=== PATIENT | female | born 1965 | race Caucasian/White ===

== ENCOUNTER → 2020-09-02 16:37 | Outpatient (BNVA) | payer MEDICARE, MEDICAID, SELFPAY | PROVIDERS: PCP Internal Medicine; Referring Provider Internal Medicine; Visit Provider Student in an Organized Health Care Education/Training Program | DX: M79.7 Fibromyalgia (principal); R10.13 Epigastric pain | CPT/HCPCS: 99212 ==

== ENCOUNTER → 2020-09-29 08:08 | Outpatient (BNVA) | payer MEDICARE, MEDICAID, SELFPAY | PROVIDERS: PCP Internal Medicine; Visit Provider Physician Assistant | CPT/HCPCS: Q3014 ==

== ENCOUNTER 2020-10-12 12:02 | Outpatient (REF) | payer MEDICARE, MEDICAID, SELFPAY ==
[2020-10-12 12:55] LABS: MANUAL DIFF FLAG NO
[2020-10-12 13:17] LABS: Basophils Absolute Auto 0.1 X10*3/uL (0.0-0.2); Basophils Percent Auto 0.6 % (0-2); Eosinophils Absolute Auto 0.2 X10*3/uL (0.0-0.4); Eosinophils Percent Auto 1.8 % (0-4); Hemoglobin 13.6 g/dl (12.0-16.0); Imm Gran Abs Auto 0.14 X10*3/uL (0.00-0.03); Imm Gran Pct Auto 1.2 % (0.0-0.4); Lymphocytes Absolute Auto 2.1 X10*3/uL (1.2-4.9); Lymphocytes Percent Auto 18.5 % (20-40); Mean Corpuscular HGB Conc 31.6 g/dl (31.0-35.0); Mean Corpuscular Hemoglobin 29.4 pg (27.0-33.0); Mean Corpuscular Volume 92.9 fL (80-98); Mean Platelet Volume 9.6 fL (9.4-12.3); Monocytes Percent Auto 8.8 % (2-11); Neutrophils Absolute Auto 7.8 X10*3/uL (2.0-8.3); Neutrophils Percent Auto 69.1 % (45-73); Platelet Count 436 X10*3/uL (160-400); Red Blood Count 4.63 X10*6/uL (4.20-5.50); Red Cell Distribution Width 14.5 % (11.0-16.0); White Blood Count 11.3 X10*3/uL (4.8-10.8)
[2020-10-12 13:37] LABS: Thyroid Stimulating Hormone 0.65 uIU/mL (0.32-4.0)
== END 2020-10-12 12:03 | disposition home or self-care (01) ==
LOC: HO.LAB 12:02
PROVIDERS: Visit Provider Physician Assistant
DX: R74.01 Elevation of levels of liver transaminase levels (principal); K59.09 Other constipation
CPT/HCPCS: 36415; 84443; 85025

== ENCOUNTER 2020-10-25 08:16 | Day surgery (SDC) | payer MEDICARE, MEDICAID, SELFPAY ==
[2020-10-19 18:36] VITALS: BMI 32.7
--- NOTE | 2020-10-21 14:29 | HO.ANESPROP2 ---
Documented by User: Anny Doty 10/22/20 11:59 HPI - Anesthesia Eval Consult details Narrative: 55yo F for Upper Endoscopy PMFSH Active Problems Active Problems: All Active Problems (Updated 10/19/20 @ 18:33 by Vanessa Botello RN) Dyspepsia (Acute) Acid reflux (Acute) Dysphagia (Acute) Chronic constipation (Acute) Tubular adenoma of colon (Acute) Fibromyalgia (Acute) Past Medical History Medical History Anxiety Arthritis CAD (coronary artery disease) Fibromyalgia Rectocele Smoker Tubular adenoma of colon Family History Family History Father Diabetes Mother Breast cancer Rheumatoid arthritis Surgical History Surgical History History of cardiac catheterization Hx of section Hx of colonoscopy Social History Social History Household Members: Significant Other Alcohol intake: never Smoking Status: Current every day smoker Tobacco Type: Cigarette Packs Per Day: 1 Cigarettes Per Day: 20.0 Years Smoked: 25 Smoked in Last 30 Days: Yes Patient Interested in Nicotine Replacement: No Use of substances other than those prescribed or required for medical reasons: No Advance Directives: No Advance Directives Information Provided: No Advance Directives on File: No Recently lost weight without trying: No Current occupational status: unemployed Meds Allergies Allergy/AdvReac Type Severity Reaction Status Date / Time quan flavors Allergy Intermediate hives Uncoded 09/29/20 08:08 contrast dye Allergy Intermediate vomiting Uncoded 09/29/20 08:08 ,rash Home Medications Medication Instructions Recorded Confirmed Last Taken Type amitriptyline 25 mg tablet 25 mg PO BEDTIME 09/02/20 10/19/20 Unknown History hydroxyzine HCl 25 mg tablet 25 mg PO BEDTIME 09/02/20 10/19/20 Unknown History multivitamin 1 tab PO DAILY 09/02/20 10/19/20 Unknown History sertraline 100 mg tablet 100 mg PO DAILY 09/02/20 10/19/20 Unknown History solifenacin 5 mg tablet 5 mg PO DAILY 09/02/20 10/19/20 Unknown History Exam Exam Date and Time: October 21, 2020 142 Height,Weight and Vital Signs: Height 5 ft 2 in Weight 81.193 kg Assessment and Plan Assessment Anesthesia Assessment: Chart Reviewed Documented by User: Chery Boucher 10/25/20 09:46 PMFSH Past Medical History Medical History Anxiety Arthritis CAD (coronary artery disease) Fibromyalgia Rectocele Smoker Tubular adenoma of colon Family History Family History Father Diabetes Mother Breast cancer Rheumatoid arthritis Surgical History Surgical History History of cardiac catheterization Hx of section Hx of colonoscopy Social History Social History Household Members: Significant Other Alcohol intake: never Smoking Status: Current every day smoker Tobacco Type: Cigarette Packs Per Day: 1 Cigarettes Per Day: 20.0 Years Smoked: 25 Smoked in Last 30 Days: Yes Patient Interested in Nicotine Replacement: No Use of substances other than those prescribed or required for medical reasons: No Advance Directives: No Advance Directives Information Provided: No Advance Directives on File: No Recently lost weight without trying: No Current occupational status: unemployed Meds Allergies Allergy/AdvReac Type Severity Reaction Status Date / Time quan flavors Allergy Intermediate hives Uncoded 09/29/20 08:08 contrast dye Allergy Intermediate vomiting Uncoded 09/29/20 08:08 ,rash Home Medications Medication Instructions Recorded Confirmed Last Taken Type amitriptyline 25 mg tablet 25 mg PO BEDTIME 09/02/20 10/19/20 Unknown History hydroxyzine HCl 25 mg tablet 25 mg PO BEDTIME 09/02/20 10/19/20 Unknown History multivitamin 1 tab PO DAILY 09/02/20 10/19/20 Unknown History sertraline 100 mg tablet 100 mg PO DAILY 09/02/20 10/19/20 Unknown History solifenacin 5 mg tablet 5 mg PO DAILY 09/02/20 10/19/20 Unknown History Exam Airway Mallampati Class: II (No maxillary teeth) TM Dist: >3cm Neck ROM: Full Denture: Upper Loose/Missing/Broken Teeth: Yes and Upper Heart: RRR Lungs: CTA Assessment and Plan Assessment Anesthesia Assessment: Anesthesia Plan Discussed and Chart Reviewed Final Anesthetic Review NPO: Yes ASA Class: III Final Preanesthetic Review: Meds/Allgs Chart Reviewed, Consent Obtained/Reviewed and Anes Risks/Benef Reviewed Patient Risk: Intermediate Procedure Risk: Intermediate Anesthetic Plan Anesthetic Plan: MAC: Disposition: Standard PACU
--- NOTE | 2020-10-25 08:43 | MHC.SHP ---
Pre-Procedural Eval Section B Chief Complaint: Epigastric Pain Relevant Family History (Specify if Yes): No Relevant Social History: Tobacco Use Present Medications: see Short Stay Collaborative assessment Medical History: Significant History (Anxiety Arthritis CAD (coronary artery disease) Fibromyalgia Rectocele Smoker Tubular adenoma of colon) History of Previous Operations: Relevant previous surgery/procedure and date(s) (History of cardiac catheterization Hx of section Hx of colonoscopy) Allergies: Allergies Allergy/AdvReac Type Severity Reaction Status Date / Time quan flavors Allergy Intermediate hives Uncoded 09/29/20 08:08 contrast dye Allergy Intermediate vomiting Uncoded 09/29/20 08:08 ,rash Review of Systems Sugical H&P ROS: Negative: Constitution, Cardiovascular, Respiratory, Neurological, Psychiatric, Hem-Onc, Allergic/Immunologic, Gastrointestinal, Genitourinary, Musculoskeletal, Integumentary, Endocrine and Eyes/Ears/Nose/Throat Exam Surgical H&P Exam: Normal: HEENT, Normal: Heart, Normal: Lungs, Normal: Extremities, Normal: Abdomen, Normal: Skin and Normal: Neurological Plan Diagnosis/Plan: Unchanged I have reviewed the history and physical and performed a pertinent physical examination on my patient. No changes have occurred unless specified.
[2020-10-25 09:21] VITALS: BP 116/79; PULSE 69; RESP 16; TEMP 36.3; O2SAT 97
[2020-10-25] MEDS: Lactated Ringers 1,000 ML 100 ML IVCONT (09:26)
--- NOTE | 2020-10-25 10:25 | PM.OP ---
Brief Operative Note Date of Service: 10/25/20 Pre-op diagnosis: GERD Post-op diagnosis: same Procedure: see op note Surgeon: Disha Goldberg MD Anesthesia: MAC Estimated blood loss (mL): 0 Condition: stable Disposition: PACU
--- NOTE | 2020-10-25 10:25 | W.PM.OPN ---
Operative Note Operative Note Date of Service: 10/25/20 Narrative: Procedure Description: EGD FLEXIBLE TRANSORAL UPPER GASTROINTESTINAL ENDOSCOPY UPPER ENDOSCOPY Consent: Indications for the procedure and potential complications of bleeding, perforation, reaction to medications and missed diagnosis were discussed with the patient and informed consent was obtained. Instrument: Olympus GIF H 190 J mid size upper endoscope Monitoring: Vital signs and clinical assessment, continuous EKG monitoring, Pulse oximetry, Carbon Dioxide monitoring and blood pressure monitoring were done throughout the procedure. Procedure: The patient was placed in the left lateral decubitis position and pre-procedure medications were administered and a bite block was placed. The endoscope was inserted into the mouth and advanced under direct vision to the third part of duodenum. A careful inspection was made as the upper endoscope was withdrawn including a retroflexed examination of the proximal stomach; Findings and interventions are described below. Findings: Larynx:normal Esophagus: GE junction at 37 cm, diaphragm hiatus at 33 cm, consistent with 4 cm sliding hiatal hernia, irregular Z line, possible barretts with esophagitis, bx taken from GEJ Stomach: Patchy gastric erythema. Biopsies were obtained. Grade 2 flap valve on retroflexed examination of the cardia. Duodenum: Normal bulb and descending duodenum, Intervention: Biopsies as noted above Impression/Findings: hiatal hernia gastritis esophagitis PLAN: cont with PPI, can increase dose if needed consider surgical referral for repair of hernia reflux precautions
[2020-10-25 10:30] VITALS: BP 115/68; PULSE 81; RESP 16; TEMP 36.2; O2SAT 92
[2020-10-25 10:45] VITALS: BP 120/73; PULSE 70; RESP 18; TEMP 36.1; O2SAT 93
== END 2020-10-25 11:24 | disposition home or self-care (01) ==
PROVIDERS: Visit Provider Internal Medicine Gastroenterology
PROC: 0DJ08ZZ Inspection of Upper Intestinal Tract, Via Natural or Artificial Opening Endoscopic (ICD-10-PCS; CPT 43235; principal; 2020-10-25 09:10)
DX: R10.13 Epigastric pain (principal); K21.00 Gastro-esophageal reflux disease with esophagitis, without bleeding; K29.70 Gastritis, unspecified, without bleeding; K44.9 Diaphragmatic hernia without obstruction or gangrene; K59.09 Other constipation; F17.210 Nicotine dependence, cigarettes, uncomplicated; Z86.010 Personal history of colon polyps
CPT/HCPCS: 43239; 88305; 88342; J2250; J3010

== ENCOUNTER → 2020-11-09 11:12 | Outpatient (BNVA) | payer MEDICARE, MEDICAID, SELFPAY | PROVIDERS: Visit Provider Physician Assistant | DX: Z13.89 Encounter for screening for other disorder (principal) | CPT/HCPCS: Q3014 ==

== ENCOUNTER 2021-09-02 14:19 | Outpatient (REF) | payer OTHER, MEDICAID, SELFPAY ==
--- NOTE | ~2021-09-02 | XR_ITS ---
EXAMINATION: XR CERVICAL SPINE CLINICAL INFORMATION: M54.2 - Cervicalgia COMPARISON: Radiographs cervical spine 08/03/2016 TECHNIQUE: Cervical spine is imaged in 5 views: AP, odontoid, lateral, swimmer's, and Fuchs. FINDINGS: There is mild reversal cervical lordosis with mild levocurvature cervical spine similar to prior exam 2017. There is no interval vertebral compression, focal disc narrowing, destructive process, or prevertebral soft tissue swelling. The odontoid appears none. Again, there is trace spondylolisthesis at C4-C5 with some mild spurring facet. There is no perched facet or widening posterior elements. XR/XR cervical spine 3V IMPRESSION: 1. Mild levocurvature and reversal cervical lordosis similar to 2017. 2. Trace spondylolisthesis C4-C5 similar to prior exam. 3. No interval vertebral compression, focal disc narrowing, destructive process.
== END 2021-09-02 14:20 | disposition home or self-care (01) ==
LOC: HO.XRAY 14:19
PROVIDERS: PCP Internal Medicine; Visit Provider Nurse Practitioner Family
DX: M79.7 Fibromyalgia (principal); M54.2 Cervicalgia; R10.13 Epigastric pain
CPT/HCPCS: 72040; 99212

== ENCOUNTER → 2021-10-10 08:25 | Outpatient (BNVA) | payer MEDICARE, MEDICAID, SELFPAY | PROVIDERS: PCP Internal Medicine; Referring Provider Internal Medicine; Visit Provider Physician Assistant | DX: K21.9 Gastro-esophageal reflux disease without esophagitis (principal); K44.9 Diaphragmatic hernia without obstruction or gangrene; Z87.19 Personal history of other diseases of the digestive system | CPT/HCPCS: Q3014 ==

== ENCOUNTER 2021-12-06 13:37 | Outpatient (REF) | payer MEDICARE, MEDICAID, SELFPAY ==
--- NOTE | ~2021-12-06 | XR_ITS ---
EXAMINATION: XR LUMBOSACRAL SPINE WITH OBLIQUES CLINICAL INFORMATION: Muscle spasm. COMPARISON: Lumbar spine radiographs dated 08/03/2016. TECHNIQUE: AP, lateral, coned down, flexion, and extension views of the lumbar spine. FINDINGS: Normal vertebral body alignment. The lumbar lordosis is maintained. No significant subluxation with flexion or extension. No loss of vertebral body height. Minimal multilevel loss of intervertebral disc height with endplate osseous, most prominent at L1-L2. No lytic or blastic osseous lesion. No abnormal soft tissue calcification. XR/XR lumbar spine 6V w bending IMPRESSION: No acute fracture or subluxation. No change in anatomic alignment with flexion or extension. Mild multilevel degenerative disc disease, most prominent at L1-L2, slightly progressed when compared to the prior radiographs.
== END 2021-12-06 13:38 | disposition home or self-care (01) ==
LOC: HO.XRAY 13:37
PROVIDERS: Visit Provider Nurse Practitioner Family
DX: M62.838 Other muscle spasm (principal); M43.06 Spondylolysis, lumbar region; M47.812 Spondylosis without myelopathy or radiculopathy, cervical region; M54.2 Cervicalgia; M79.7 Fibromyalgia
CPT/HCPCS: 72114; 99202

== ENCOUNTER 2021-12-15 10:22 | Day surgery (SDC) | payer MEDICARE, MEDICAID, SELFPAY ==
[2021-12-09 15:05] VITALS: BMI 35.1
--- NOTE | 2021-12-14 09:32 | HO.ANESPROP2 ---
Documented by User: Anny Doty NP 12/14/21 09:34 HPI - Anesthesia Eval Consult details Narrative: 56yo F for Upper Endoscopy s/p Upper Endoscopy 10/2020 with MAC [facility] Active Problems Active Problems: All Active Problems (Updated 12/06/21 @ 14:50 by CHANTEL Kathleen) Cervicalgia (Acute) Cervical spondylosis (Acute) Lumbar spondylolysis (Acute) Muscle spasm (Acute) History of Manley's esophagus (Acute) Acid reflux (Acute) Manley's esophagus (Acute) Hiatal hernia (Acute) Dyspepsia (Acute) Acid reflux (Acute) Dysphagia (Acute) Chronic constipation (Acute) Tubular adenoma of colon (Acute) Fibromyalgia (Acute) Past Medical History Medical History Anxiety Arthritis CAD (coronary artery disease) Fibromyalgia Rectocele Smoker Tubular adenoma of colon Family History Family History Father Diabetes Mother Breast cancer Rheumatoid arthritis Surgical History Surgical History History of cardiac catheterization Hx of section Hx of colonoscopy Social History Social History Household Members: Significant Other Alcohol intake: never Patient Tobacco Use Status: Former Tobacco user Quit Date: 10/02/21 Cigarette Packs Per Day: 1 Cigarettes Per Day: 20.0 Years Smoked: 25 / Quit 3 months ago Current occupational status: unemployed Meds Allergies Allergy/AdvReac Type Severity Reaction Status Date / Time quan flavors Allergy Intermediate hives Uncoded 12/15/21 10:34 contrast dye Allergy Intermediate vomiting Uncoded 12/15/21 10:34 ,rash Home Medications Medication Instructions Recorded Confirmed Last Taken Type amitriptyline 25 mg tablet 25 mg PO BEDTIME 09/02/20 10/10/21 Unknown History hydroxyzine HCl 25 mg tablet 25 mg PO BEDTIME 09/02/20 10/10/21 Unknown History multivitamin 1 tab PO DAILY 09/02/20 10/10/21 Unknown History sertraline 100 mg tablet 100 mg PO DAILY 09/02/20 10/10/21 Unknown History oxybutynin chloride 10 mg 10 mg PO DAILY 09/02/21 10/10/21 Unknown History tablet,extended release 24 hr omeprazole 20 mg capsule,delayed 20 mg PO DAILY 10/10/21 10/10/21 12/15/21 09:00 History release ibuprofen 800 mg tablet 800 mg PO Q8H PRN 12/06/21 Unknown History rosuvastatin 10 mg tablet 10 mg PO BEDTIME 12/06/21 Unknown History Exam Exam Date and Time: December 14, 2021 0932 Height,Weight and Vital Signs: Height 5 ft 1 in Weight 84.368 kg Assessment and Plan Assessment Anesthesia Assessment: Chart Reviewed Documented by User: Basilio Marquez MD 12/15/21 16:23 [facility] Past Medical History Medical History Anxiety Arthritis CAD (coronary artery disease) Fibromyalgia Rectocele Smoker Tubular adenoma of colon Family History Family History Father Diabetes Mother Breast cancer Rheumatoid arthritis Family history of problems with anesthesia: No Surgical History Surgical History History of cardiac catheterization Hx of section Hx of colonoscopy History of Problems with Anesthesia: No Social History Social History Household Members: Significant Other Alcohol intake: never Patient Tobacco Use Status: Former Tobacco user Quit Date: 10/02/21 Cigarette Packs Per Day: 1 Cigarettes Per Day: 20.0 Years Smoked: 25 / Quit 3 months ago Current occupational status: unemployed Meds Allergies Allergy/AdvReac Type Severity Reaction Status Date / Time quan flavors Allergy Intermediate hives Uncoded 12/15/21 10:34 contrast dye Allergy Intermediate vomiting Uncoded 12/15/21 10:34 ,rash Home Medications Medication Instructions Recorded Confirmed Last Taken Type amitriptyline 25 mg tablet 25 mg PO BEDTIME 09/02/20 10/10/21 Unknown History hydroxyzine HCl 25 mg tablet 25 mg PO BEDTIME 09/02/20 10/10/21 Unknown History multivitamin 1 tab PO DAILY 09/02/20 10/10/21 Unknown History sertraline 100 mg tablet 100 mg PO DAILY 09/02/20 10/10/21 Unknown History oxybutynin chloride 10 mg 10 mg PO DAILY 09/02/21 10/10/21 Unknown History tablet,extended release 24 hr omeprazole 20 mg capsule,delayed 20 mg PO DAILY 10/10/21 10/10/21 12/15/21 09:00 History release ibuprofen 800 mg tablet 800 mg PO Q8H PRN 12/06/21 Unknown History rosuvastatin 10 mg tablet 10 mg PO BEDTIME 12/06/21 Unknown History Exam Airway Mallampati Class: III TM Dist: >3cm Neck ROM: Full Denture: Upper Loose/Missing/Broken Teeth: Yes (Chipped filling ) Heart: S1,S2 Lungs: b/l breath sounds Assessment and Plan Assessment Anesthesia Assessment: Anesthesia Plan Discussed Final Anesthetic Review Family History of Problems with Anesthesia: No History of Problems with Anesthesia: No NPO: Yes ASA Class: III Final Preanesthetic Review: Meds/Allgs Chart Reviewed, Consent Obtained/Reviewed and Anes Risks/Benef Reviewed Patient Risk: Intermediate Procedure Risk: Intermediate Anesthetic Plan Anesthetic Plan: MAC: Disposition: Standard PACU
--- NOTE | 2021-12-15 10:40 | MHC.SHP ---
Pre-Procedural Eval Section A Date of Service: 12/15/21 Section B Chief Complaint: reflux disease, dysphagia Details of Present Illness: hx of barretts esophagus Relevant Family History (Specify if Yes): Yes Relevant Social History: None (ex smoker) Present Medications: see Short Stay Collaborative assessment Medical History: Significant History (Anxiety Arthritis CAD (coronary artery disease) Fibromyalgia Rectocele Smoker Tubular adenoma of colon) History of Previous Operations: Relevant previous surgery/procedure and date(s) (History of cardiac catheterization Hx of section Hx of colonoscopy) Allergies: Allergies Allergy/AdvReac Type Severity Reaction Status Date / Time quan flavors Allergy Intermediate hives Uncoded 12/15/21 10:34 contrast dye Allergy Intermediate vomiting Uncoded 12/15/21 10:34 ,rash Review of Systems Sugical H&P ROS: Negative: Constitution, Cardiovascular, Respiratory, Neurological, Psychiatric, Hem-Onc, Allergic/Immunologic, Gastrointestinal, Genitourinary, Musculoskeletal, Integumentary, Endocrine and Eyes/Ears/Nose/Throat Exam Surgical H&P Exam: Normal: HEENT, Normal: Heart, Normal: Lungs, Normal: Extremities, Normal: Abdomen, Normal: Skin and Normal: Neurological Plan Diagnosis/Plan: Unchanged I have reviewed the history and physical and performed a pertinent physical examination on my patient. No changes have occurred unless specified.
[2021-12-15 10:58] VITALS: BP 118/70; PULSE 65; RESP 18; TEMP 36.1; O2SAT 96; BMI 36.6
[2021-12-15] MEDS: Lactated Ringers 1,000 ML 100 ML IVCONT (11:06)
--- NOTE | 2021-12-15 11:22 | PM.OP ---
Brief Operative Note Date of Service: 12/15/21 Pre-op diagnosis: GERD, dysphagia and hx of barretts esophagus Post-op diagnosis: same Procedure: see op note Surgeon: Disha Goldberg MD Anesthesia: MAC Was an [employer] Control [employer] Operator used for this Procedure?: No Estimated blood loss (mL): 0 Condition: stable Disposition: PACU
--- NOTE | 2021-12-15 11:22 | W.PM.OPN ---
Operative Note Operative Note Date of Service: 12/15/21 Narrative: Procedure Description: EGD Indication: Hx of GERD, dysphagia, barretts esophagus Anesthesia: MAC FLEXIBLE TRANSORAL UPPER GASTROINTESTINAL ENDOSCOPY UPPER ENDOSCOPY Consent: Indications for the procedure and potential complications of bleeding, perforation, reaction to medications and missed diagnosis were discussed with the patient and informed consent was obtained. Instrument: Olympus GIF H 190 J mid size upper endoscope Monitoring: Vital signs and clinical assessment, continuous EKG monitoring, Pulse oximetry, Carbon Dioxide monitoring and blood pressure monitoring were done throughout the procedure. Procedure: The patient was placed in the left lateral decubitis position and pre-procedure medications were administered and a bite block was placed. The endoscope was inserted into the mouth and advanced under direct vision to the third part of duodenum. A careful inspection was made as the upper endoscope was withdrawn including a retroflexed examination of the proximal stomach; Findings and interventions are described below. Findings: Larynx:normal Esophagus: GE junction at 37? cm, diaphragm hiatus at 33 cm, consistent with 4 cm sliding hiatal hernia, irregular Z line, with short segment barretts tongues noted, as well as distal linear erosive streaks (LA grade C erosive esophagitis) bx taken from GEJ as well as WATS 3D brushings. There was a non obstructive schatzki ring noted. Balloon dilation done to 20 mm at GEJ, minimal resistance felt, UEs dilated and resistance felt at 19 mm. No tears seen. Stomach: Patchy gastric erythema with scarring noted . Biopsies were obtained. Grade 2 flap valve on retroflexed examination of the cardia. Reduced gastric movement noted. Duodenum: Normal bulb and descending duodenum, Intervention: Biopsies as noted above, Ballon dilation, WATS 3d brushings Impression/Findings: sliding hiatal hernia schatzki ring erosive esophagitis gastritis possible gastroparesis barretts esophagus PLAN: confirm taking PPI weight loss consider referral for hernia repair gastric emptying study if she agrees reflux precautions possible repeat EGD 3-5 yrs depending on path and WATS
[2021-12-15 12:11] VITALS: BP 105/60; PULSE 92; RESP 16; TEMP 36.1; O2SAT 98
[2021-12-15 12:26] VITALS: BP 141/74; PULSE 99; RESP 18; TEMP 36.1; O2SAT 98
== END 2021-12-15 12:46 ==
PROVIDERS: PCP Internal Medicine; Visit Provider Internal Medicine Gastroenterology
PROC: 0DJ08ZZ Inspection of Upper Intestinal Tract, Via Natural or Artificial Opening Endoscopic (ICD-10-PCS; CPT 43235; principal; 2021-12-15 11:50)
DX: K21.00 Gastro-esophageal reflux disease with esophagitis, without bleeding (principal); K29.50 Unspecified chronic gastritis without bleeding; K22.2 Esophageal obstruction; K22.70 Barrett's esophagus without dysplasia; K44.9 Diaphragmatic hernia without obstruction or gangrene
CPT/HCPCS: 43249; 43239; 88305; 88342; C1726; J2250

== ENCOUNTER → 2021-12-29 09:23 | Outpatient (BNVA) | payer MEDICARE, MEDICAID, SELFPAY | PROVIDERS: PCP Internal Medicine; Visit Provider Physician Assistant | DX: K22.70 Barrett's esophagus without dysplasia (principal); K21.9 Gastro-esophageal reflux disease without esophagitis; K44.9 Diaphragmatic hernia without obstruction or gangrene; K22.2 Esophageal obstruction; M54.2 Cervicalgia; M47.812 Spondylosis without myelopathy or radiculopathy, cervical region; M43.06 Spondylolysis, lumbar region; M62.838 Other muscle spasm; M79.7 Fibromyalgia; N62 Hypertrophy of breast; M25.511 Pain in right shoulder; M25.512 Pain in left shoulder; G89.29 Other chronic pain | CPT/HCPCS: 99212 ==

== ENCOUNTER 2022-01-25 09:19 | Emergency (ER) | payer OTHER, SELFPAY ==
[2022-01-25 09:25] VITALS: BP 122/58; PULSE 68; RESP 16; TEMP 36.4; O2SAT 97; BMI 32.1
[2022-01-25 09:38] LABS: Appearance Urine CLEAR; Color Urine YELLOW; Glucose Urine UA NEG (NEG); Leukocyte Esterase Urine NEG (NEG); Nitrite Urine NEG (NEG); Urine Blood NEG (NEG); Urine Ketones NEG (NEG); Urine Protein NEG (NEG-TRACE)
--- NOTE | 2022-01-25 10:01 | ED.FEMALEGU ---
HPI - Female Genitourinary General Chief complaint: Urogenital-Female Stated complaint: pt states derick was on meds but still has symtoms Time Seen by Provider: 01/25/22 09:54 Source: patient Mode of arrival: ambulatory Limitations: no limitations History of Present Illness HPI Narrative: Patient is a 56 year old female presenting to the emergency department today with continued urinary tract infection symptoms. Patient states that she is still currently having burning with urination. Patient states that starting late December, she was diagnosed with a urinary tract infection at an urgent care. Patient states that a few days after she was prescribed Macrobid, her urine culture grew out E. Coli. At that time, they switched her medication to Augmentin. Patient states that today she is on her last dose of Augmentin and her symptoms have remained the same. Patient states she saw her OBGYN and she gave her just 1 dose of an anti-fungal. Patient denies any dizziness, lightheadedness, abdominal pain, nausea, vomiting, fever, chills, blurry vision, double vision, loss of vision, chest pain, difficulty breathing, shortness of breath, back pain, night sweats, increased urinary frequency, increased urinary urgency, blood in her urine or stool, syncope or a near syncopal episode, recent trauma or falls, bowel incontinence, bladder incontinence, bowel retention, bladder retention, or any other complaints at this time. MD elicited complaint: dysuria and UTI Onset (ago): week(s) Severity: mild Female Urogenital Radiation: Non-Radiating Severity scale (1-10): 3 Vaginal discharge: none Vaginal bleeding: none Urinary symptoms: Dysuria Exacerbating factors: none Relieving factors: none Associated symptoms: denies other symptoms Treatment prior to arrival: none Sexual activity: No Related Data Home Medications Medication Instructions Recorded Confirmed amitriptyline 25 mg tablet 25 mg PO BEDTIME 09/02/20 12/29/21 hydroxyzine HCl 25 mg tablet 25 mg PO BEDTIME 09/02/20 12/29/21 multivitamin 1 tab PO DAILY 09/02/20 12/29/21 sertraline 100 mg tablet 100 mg PO DAILY 09/02/20 12/29/21 oxybutynin chloride 10 mg 10 mg PO DAILY 09/02/21 12/29/21 tablet,extended release 24 hr omeprazole 20 mg capsule,delayed 20 mg PO DAILY 10/10/21 12/29/21 release ibuprofen 800 mg tablet 800 mg PO Q8H PRN pain 12/06/21 12/29/21 rosuvastatin 10 mg tablet 10 mg PO BEDTIME 12/06/21 12/29/21 norethindrone (contraceptive) 0.35 0.35 mg PO 12/29/21 12/29/21 mg tablet Previous Rx's Medication Instructions Recorded omeprazole 20 mg capsule,delayed 40 mg PO DAILY 30 days #60 caps 12/29/21 release tizanidine 4 mg tablet 4 mg PO Q8H PRN muscle spasticity 12/29/21 30 days #90 tabs pregabalin 225 mg capsule (Lyrica) 225 mg PO BID #60 caps 01/18/22 cephalexin 500 mg capsule 500 mg PO Q6H 7 days #28 caps 01/25/22 fluconazole 150 mg tablet 150 mg PO ONCE 2 doses #2 tabs 01/25/22 (Diflucan) metronidazole 500 mg tablet 500 mg PO BID 7 days #14 tabs 01/25/22 Allergies Allergy/AdvReac Type Severity Reaction Status Date / Time quan flavors Allergy Intermediate hives Uncoded 12/15/21 10:34 contrast dye Allergy Intermediate vomiting Uncoded 12/15/21 10:34 ,rash Review of Systems Constitutional: Constitutional: Reports no additional constitutional complaints, Denies chills, Denies fever(s) and Denies night sweats Eyes: Eyes: Reports no additional eye complaints, Denies blurry vision, Denies change in vision, Denies diplopia, Denies eye discharge, Denies loss of vision and Denies eye pain ENT: Denies dizziness Cardiovascular: Cardiovascular: Reports no additional cardiovascular complaints, Denies chest pain, Denies lightheadedness, Denies Loss of Consciousness and Denies dyspnea Respiratory: Respiratory: Reports no additional respiratory complaints and Denies dyspnea Gastrointestinal: Gastrointestinal: Reports no additional gastrointestinal complaints, Denies abdominal pain, Denies melena, Denies hematochezia, Denies change in bowel habits and Denies change in stool character Genitourinary: Genitourinary: Denies hematuria, Denies urinary frequency, Reports dysuria, Denies urinary incontinence, Denies urinary hesitancy and Denies urinary urgency Musculoskeletal: Musculoskeletal: Reports no additional musculoskeletal complaints, Denies numbness and Denies tingling Neurologic: Denies dizziness, Denies loss of vision, Denies numbness and Denies tingling Psychiatric: Psychiatric: Reports no additional psychiatric complaints Endocrine: Endocrine: Reports no additional endocrine complaints Hematologic/Lymphatic: Hematologic/Lymphatic: Reports no additional hematologic/lymphatic complaints Allergic/Immunologic: Allergic/Immunologic: Reports no additional allergic/immunologic complaints REPLACED BY [facility] Past Medical History Attestation statement: The following information was validated with the patient. Source: old records reviewed Medical History Anxiety Arthritis CAD (coronary artery disease) Fibromyalgia Rectocele Smoker Tubular adenoma of colon Surgical History History of cardiac catheterization Hx of section Hx of colonoscopy Family History Family History Father Diabetes Mother Breast cancer Rheumatoid arthritis Social History Social History Household Members: Significant Other Alcohol intake: never Patient Tobacco Use Status: Former Tobacco user Quit Date: 10/02/21 Cigarette Packs Per Day: 1 Cigarettes Per Day: 20.0 Years Smoked: 25 / Quit 3 months ago Advance Directives: No Advance Directives Information Provided: Yes Current occupational status: unemployed Physical Exam Vital Signs: Vital Signs: Last Vital Signs Temp 97.6 F 01/25/22 09:25 Pulse 68 01/25/22 09:25 Resp 16 01/25/22 09:25 BP 122/58 L 01/25/22 09:25 Pulse Ox 97 01/25/22 09:25 O2 Del Method 01/25/22 09:25 BMI result Body Mass Index 32.1 Const: General: cooperative, no acute distress, alert and awake Nutritional Appearance: well nourished Orientation/consciousness: patient oriented x3 Limitations: no limitations HEENT: Head: Yes normal to inspection and Yes atraumatic Ears: hearing grossly normal bilaterally and external ears normal General nose exam: Normal external nose present, no nasal discharge noted and no epistaxis Face and sinus: Yes normal facial exam, No abrasion and No laceration Mouth: Normal oral and palatal mucosa present, no drooling and no muffled voice Eyes: General: appearance normal, both eyes and all related structures Periorbital: periorbital findings normal Eyelids: Yes eyelids normal Conjunctivae: conjunctivae normal Pupils: Equal, round and reactive pupils present EOM: EOMs intact bilaterally Neck: Neck: Yes normal visual inspection, Yes full ROM and Yes no lymphadenopathy Chest: Chest palpation & inspection: normal inspection of the chest Resp: Effort & Inspection: normal respiratory effort and able to speak in complete sentences Auscultation: clear to auscultation bilaterally Cardio: Rate: regular rate Rhythm: regular rhythm GI: Inspection: Yes normal to inspection Neuro: General: patient oriented x3 and moves all extremities Cranial nerves: Yes Equal, round and reactive pupils present Cognition (Neuro): normal cognition Motor exam (neuro): 5/5 motor strength present throughout Sensory Exam: Normal double simultaneous stimulation for sensation Coordination: [id number]-[id number] test normal Extrem: General: Yes normal to inspection, Yes full ROM and Yes capillary refill normal Psych: Appearance: grossly normal Mental Status: mental status grossly normal Affect: normal affect Attitude: cooperative Thought process: Normal thought process present Thought content: Normal thought content present Insight: Good insight present (Psych) MDM - Female Genitourinary MDM Narrative Medical decision making narrative: Patient is a 56 year old female presenting to the emergency department today with urinary tract infection symptoms. Patient's physical exam was unremarkable. Patient's urine showed minimal WBCs, trace yeast, and trace bacteria. I explained my physical exam findings as well as all test results to the patient. I answered all questions asked by the patient. I stressed the importance of the patient taking her medication as prescribed. I stressed the importance of the patient following up with her primary care provider and a urologist. I stressed the importance of the patient returning to the emergency department immediately if her symptoms were to worsen or if she were to develop any dizziness, shortness of breath, difficulty breathing, chest pain, blurry vision, loss of vision, nausea, vomiting, abdominal pain, fever, chills, back pain, or any other complaints. Patient verbalized agreement and understanding with this treatment plan and discharge. Differential Diagnosis Differential diagnosis: Likely urinary tract infection Medical Records Attestation: I reviewed the patient's medical records. Lab Data Attestation: I reviewed the patient's lab results. Labs: Lab Results 01/25/22 Range/Units 09:31 Urine Color YELLOW Urine Appearance CLEAR Urine pH 6.0 (5.0-8.0) Ur Specific [place] 1.020 (1.005-1.025) Urine Protein NEG (NEG-TRACE) MG/DL Urine Glucose (UA) NEG (NEG) MG/DL Urine Ketones NEG (NEG) MG/DL Urine Blood NEG (NEG) Urine Nitrite NEG (NEG) Ur Leukocyte Esterase NEG (NEG) Urine RBC 0-2 (0) /HPF Urine WBC 1-4 (0-4) /HPF Ur Squamous Epith Cells 1+ /LPF Urine Bacteria TRACE /LPF Urine Yeast TRACE /HPF Discharge Plan Discharge Clinical Impression: UTI (urinary tract infection), Yeast infection Patient Disposition: Home, Self-Care Instructions: Urinary Tract Infection in Women (ED), Yeast Infection (ED) Additional Instructions: Take an OTC oral probiotic as we discussed. Follow up with your primary care provider, your OBGYN, and a urologist. Return to the emergency department immediately if your symptoms worsen or if you develop any dizziness, shortness of breath, difficulty breathing, chest pain, blurry vision, loss of vision, nausea, vomiting, abdominal pain, fever, chills, back pain, or any other complaints. Prescriptions: New cephalexin 500 mg capsule 500 mg PO Q6H 7 Days Qty: 28 0RF fluconazole [Diflucan] 150 mg tablet 150 mg PO ONCE Qty: 2 0RF Rx Instructions: Take the first dose TODAY, take the 2nd dose at the END of your antibiotic course. metronidazole 500 mg tablet 500 mg PO BID 7 Days Qty: 14 0RF No Action pregabalin [Lyrica] 225 mg capsule 225 mg PO BID Qty: 60 4RF oxybutynin chloride 10 mg tablet extended release 24hr 10 mg PO DAILY sertraline 100 mg tablet 100 mg PO DAILY amitriptyline 25 mg tablet 25 mg PO BEDTIME hydroxyzine HCl 25 mg tablet 25 mg PO BEDTIME multivitamin Tablet 1 tab PO DAILY omeprazole 20 mg capsule,delayed release(DR/EC) 20 mg PO DAILY rosuvastatin 10 mg tablet 10 mg PO BEDTIME ibuprofen 800 mg tablet 800 mg PO Q8H PRN (Reason: pain) omeprazole 20 mg capsule,delayed release(DR/EC) 40 mg PO DAILY 30 Days Qty: 60 11RF norethindrone (contraceptive) 0.35 mg tablet 0.35 mg PO tizanidine 4 mg tablet 4 mg PO Q8H PRN (Reason: muscle spasticity) 30 Days Qty: 90 3RF Referrals: [facility] [Provider Group] (Call to establish and follow up with a urologist. ) Erin Smith MD [Primary Care Provider] - (Follow up with your PCP. ) Stand Alone Forms: Work/School Release Interventions: ED Discharge Assessment Last Done: 01/25/22 11:04 Discharge Date/Time: 01/25/22 11:05 Print Language: Andorran
[2022-01-25 10:10] LABS: Squamous Epithelial Cell Urine 1+ /LPF
[2022-01-25 10:11] LABS: RBC Urine 0-2 /HPF (0)
[2022-01-25 10:12] LABS: Bacteria Urine TRACE /LPF
== END 2022-01-25 11:05 | disposition home or self-care (01) ==
PROVIDERS: Emergency Provider Emergency Medicine; PCP Internal Medicine
DX: N39.0 Urinary tract infection, site not specified (principal); B37.3 Candidiasis of vulva and vagina; Z79.02 Long term (current) use of antithrombotics/antiplatelets; Z79.899 Other long term (current) drug therapy; Z87.891 Personal history of nicotine dependence
CPT/HCPCS: 81001; 99283

== ENCOUNTER 2022-07-18 12:22 | Outpatient (REF) | payer MEDICARE, MEDICAID, SELFPAY ==
[2022-07-18 15:00] LABS: Alanine Aminotransferase 19 U/L (0-31); Albumin Level 4.2 g/dL (3.5-5.0); Alkaline Phosphatase 59 U/L (39-117); Anion Gap 10 (12-20); Aspartate Amino Transferase 15 U/L (5-31); Bilirubin Total 0.5 mg/dL (0.0-1.0); Blood Urea Nitrogen 12 mg/dL (9-16); Calcium 9.2 mg/dL (8.4-10.2); Carbon Dioxide 27 mmol/L (22-29); Chloride 109 mmol/L (96-108); Estimated Glomerular Filt Rate > 60; Glucose Random 88 mg/dL (60-115); Potassium 4.6 mmol/L (3.3-5.1); Sodium 141 mmol/L (135-145)
== END 2022-07-18 12:23 | disposition home or self-care (01) ==
LOC: HO.LAB 12:22
PROVIDERS: PCP Nurse Practitioner Family; Visit Provider Nurse Practitioner Family
DX: M79.7 Fibromyalgia (principal)
CPT/HCPCS: 36415; 80053

== ENCOUNTER → 2022-09-20 08:09 | Outpatient (BNVA) | payer MEDICARE, MEDICAID, SELFPAY | PROVIDERS: PCP Internal Medicine; Visit Provider Nurse Practitioner Family | DX: M79.7 Fibromyalgia (principal); M47.812 Spondylosis without myelopathy or radiculopathy, cervical region; Z79.899 Other long term (current) drug therapy | CPT/HCPCS: 99212 ==

== ENCOUNTER 2023-02-20 12:40 | Outpatient (AMB) | payer MEDICARE, MEDICAID, SELFPAY ==
--- NOTE | 2023-02-20 12:47 | MHC.AMNUTRGE ---
Intake VS Expanded 02/20/23 13:02 02/20/23 13:37 Height 5 ft 1 in 5 ft 1 in Weight 195 lb 1.745 oz 195 lb BMI 36.9 36.8 Intake Visit Reasons: Obesity Allergies quan flavors Allergy (Intermediate, Uncoded 09/20/22 08:53) hives contrast dye Allergy (Intermediate, Uncoded 09/20/22 08:53) vomiting ,rash HPI Nutrition Presentation Details Patient presents for initial medical nutrition therapy for obesity,. Patient also has pre diabetes. Patient was referred by her primary care physician Dr. Smitha Mena. l Pt reports challenges with prevention of weight loss -No meal routine - grazing -quit smoking, working on quitting vaping and finds herself increasing on snacks/candies/grazing B: taost with peanut butter L skips or has candies/cracker/fries Dinner: Pasta/sausage/pepper/salad /snowflake rolls , diet soda or water no coffee , no milk fruits/day: 0-1 non starchy vegetables : 2 serving/s fried foods per week: 2-3 x/wk dairy: not including MVI - yes smoking: ro , quit 06/2022,, reducing on vaping and increasing on candies ETOH: denies LNZ-Ogiiflz-Wd.Jeor Equation Height 5 ft 1 in Weight 195 lb Resting Metabolic Rate 1415.48 Calculated Activity Level Sedentary Calories Needed to Maintain Weight 1698.58 Diagnosis Nutrition problem #1 excessive energy intake As related to (etiology) #1 diagnosis As evidenced by (sign/symptom) #1 high BMI (36.9 on 02/20/23) Monitoring/Goals Nutrition problem monitoring weight Nutrition goal/outcome wt loss 5lbs in 2 months Outcome progress verbalized understanding Learning/Education Readiness to learn good Stages of change contemplation Educational materials provided Yes (low calories/low sugar options) Most Recent Diabetes Results: Creatinine 0.71 mg/dL (0.5-1.4) 07/18/22 Blood Urea Nitrogen 12 mg/dL (9-16) 07/18/22 Sodium 141 mmol/L (135-145) 07/18/22 Potassium 4.6 mmol/L (3.3-5.1) 07/18/22 Chloride 109 mmol/L (96-108) H 07/18/22 Carbon Dioxide 27 mmol/L (22-29) 07/18/22 Calcium 9.2 mg/dL (8.4-10.2) 07/18/22 AST 15 U/L (5-31) 07/18/22 ALT 19 U/L (0-31) 07/18/22 Total Protein 7.0 g/dL (6.5-8.0) 07/18/22 Albumin 4.2 g/dL (3.5-5.0) 07/18/22 [facility] Medical History Anxiety Arthritis CAD (coronary artery disease) Fibromyalgia Rectocele Smoker Tubular adenoma of colon Surgical History History of cardiac catheterization Hx of section Hx of colonoscopy Family History Father Diabetes Mother Breast cancer Rheumatoid arthritis Social History Household Members: Significant Other Alcohol intake: never Patient Tobacco Use Status: Former Tobacco user Quit Date: 10/02/21 Cigarette Packs Per Day: 1 Cigarettes Per Day: 20.0 Years Smoked: 25 / Quit 3 months ago Current occupational status: unemployed Assessment & Plan Assessment & Plan (1) Obesity (BMI 30-39.9): Code(s): E66.9 - Obesity, unspecified Plan: wt: 89 kg Est kcal needs as per MSJ: 1700 (40% carb, 30% protein/fat) Est fluid needs as per 25-30 ml/d: 2225 Est prot per day as per 1 g/kg bw: 89 Recommend fiber intake : 8-10 g per day and gradually increase to 25-28 g per day for women and 35-38 g for men or as tolerated Recommend sodium intake per day : less than 2000 mg Educated patient on: ( R = reviewed V = verbalizes understanding N/R = needs review N/A = not applicable Food sources of carbohydrate, adequate serving sizes and its role in various health conditions: R Differences between complex carbohydrates a simple carbohydrates, role of fiber in diet: R Differences between types of fats and role in diet (mono on saturated fat fatty acids, saturated fatty acids, trans fats): R Food sources of sodium in salt and healthy modifications for heart health in kidney health: N/R Vitamins and minerals: NR Healthy plate method concept: NR Physical activity: Benefits a precaution: NR Patient Instructions: Work on reducing on sugars Have a meal replacement once a day Practice mindful eating Coding Level of Care Code Nutr Indiv Intake (10661) Diagnoses Obesity (BMI 30-39.9) E66.9 Time Spent (min) 30
[2023-02-20 13:02] VITALS: BMI 36.9
[2023-02-20 13:37] VITALS: BMI 36.8
== END 2023-02-20 13:29 | disposition home or self-care (01) ==
PROVIDERS: PCP Internal Medicine; Visit Provider Dietitian, Registered
DX: E66.9 Obesity, unspecified (principal)

== ENCOUNTER → 2023-02-20 12:40 | Outpatient (BNVA) | payer MEDICARE, MEDICAID, SELFPAY | PROVIDERS: PCP Internal Medicine; Visit Provider Dietitian, Registered | DX: E66.9 Obesity, unspecified (principal); Z68.36 Body mass index [BMI] 36.0-36.9, adult | CPT/HCPCS: 97802 ==

== ENCOUNTER 2023-03-07 08:42 | Outpatient (AMB) | payer MEDICARE, MEDICAID, SELFPAY ==
--- NOTE | 2023-03-07 08:46 | MHC.OFFVIS ---
Intake Vital Signs 03/07/23 08:47 Height 5 ft 1 in Weight 189 lb BMI 35.7 BP 110/59 L Blood Pressure Location Lt brachial Position Sitting Pulse 75 Intake Visit Reasons: Gastroesophageal reflux disease (GERD) Intake Note: Patient follow up for GERD. Patient cc: abdominal pain, GERD on and off, and soft stool due linzess. Allergies quan flavors Allergy (Intermediate, Uncoded 09/20/22 08:53) hives contrast dye Allergy (Intermediate, Uncoded 09/20/22 08:53) vomiting ,rash Medication List - Last Reconciled 03/07/23 by Roxanne Owusu PA-C aripiprazole (Abilify) 5 mg PO DAILY hydroxyzine HCl 25 mg PO BEDTIME ibuprofen 800 mg PO Q8H PRN multivitamin 1 tab PO DAILY omeprazole 40 mg (2 x 20 mg) PO DAILY omeprazole 40 mg PO DAILY pregabalin (Lyrica) 225 mg PO BID tizanidine 4 mg PO Q8H PRN 30 days HPI HPI Comments History of Present Illness Details A 57-year-old female follows seen back in 12/2021-after EGD - PPI b.i.d. she says she needs refill on omeprzole-20 mg bid-working great- [employer]- works very well- appetite is good-she has gained weight Bowels are normal-pattern, she has had no issues Does not smoke-quit 07/01/22- feels better 12/2021-Manley's esophagus: ? ? ? Repeat EGD 1 year- WATS 3 D continue PPI increase to Omeprazole 40 mg ? - Manley's esophagus without dysplasia ? ? ? EGD 1 year with wats 3D-LAMB ?Omeprazole-40 mg No respiratory or cardiac issues Reportedly had colonoscopy with polypectomy a couple years ago no records for review- ? No nausea, vomiting, hematemesis, hematochezia, fever chills PFSH Medical History Anxiety Arthritis CAD (coronary artery disease) Fibromyalgia Rectocele Smoker Tubular adenoma of colon Surgical History History of cardiac catheterization Hx of section Hx of colonoscopy Family History Father Diabetes Mother Breast cancer Rheumatoid arthritis Social History Household Members: Significant Other Alcohol intake: never Patient Tobacco Use Status: Former Tobacco user Quit Date: 10/02/21 Cigarette Packs Per Day: 1 Cigarettes Per Day: 20.0 Years Smoked: 25 / Quit 3 months ago Current occupational status: unemployed Review of Systems Const All systems reviewed & are unremarkable except as noted in HPI and below GI Denies abdominal pain, Denies hematochezia, Denies change in bowel habits and Denies heartburn Physical Exam Vital Signs: Last Vital Signs Pulse 75 03/07/23 08:47 BP 110/59 L 03/07/23 08:47 BMI result Body Mass Index 35.7 Results Reviewed Results Reviewed: Name:Yared Briseno Age/Sex: 56/F Attending: Disha Lamb MD : 1965 Submitted by: Disha Lamb MD Copies to: NADEEN BURTON MD MR #: [id number] ? Status: [facility] Collected: 12/15/21 Location: [facility] Received: 12/15/21 Diagnosis A.? Stomach, biopsy:? Antral-type and oxyntic mucosa with mild chronic inactive inflammation; no Helicobacter organisms seen. B.? GE junction, biopsy: - Manley esophagus with background moderate chronic active inflammation. - No dysplasia seen. - Chronic esophagitis. Clinical History Pre-Op Dx:? Reflux disease, dysphagia, Manley's esophagus Post-Op Dx: Erosive esophagitis, Manley's esophagus, hiatal hernia, Schatzki's ring, gastritis Assessment & Plan Assessment & Plan (1) History of Manley's esophagus: Comment: 1 year repeat EGD with ASHLEIGH conde now ( with Ashleigh DIAMOND)- over due- Anesthesia clearance [facility] Code(s): Z87.19 - Personal history of other diseases of the digestive system (2) Acid reflux: Comment: Continue PPI, avoid culprits, remain upright 2-3 hours after eating especially her evening meal Code(s): K21.9 - Gastro-esophageal reflux disease without esophagitis (3) Chronic constipation: Comment: A bowel regimen, high-fiber diet Code(s): K59.09 - Other constipation (4) Tubular adenoma of colon: Comment: colonoscopy 2 yrs ago- adenoma, need records Code(s): D12.6 - Benign neoplasm of colon, unspecified Plan: Will need repeat colonoscopy appropriate timing will get records to review-patient aware typically 5 year- Plan pt to call w/ [facility] records EGD with Dr. Reeves Medications: Changed From omeprazole 40 mg (2 x 20 mg) PO DAILY 180 caps 0RF To omeprazole 40 mg (2 x 20 mg) PO DAILY 90 days 180 caps 3RF Refilled omeprazole 40 mg (2 x 20 mg) PO DAILY 180 caps 0RF Patient Instructions: pt to call w/ [facility] records-for colonoscopy to be a sure she is followed up appropriate EGD with Dr. Reeves Coding Level of Care Code Est Pt Level 3 (06023) Diagnoses History of Manley's esophagus Z87.19 Acid reflux K21.9 Chronic constipation K59.09 Tubular adenoma of colon D12.6 Time Spent (min) 30
[2023-03-07 08:47] VITALS: BP 110/59; PULSE 75; BMI 35.7
== END 2023-03-07 10:11 | disposition home or self-care (01) ==
PROVIDERS: PCP Internal Medicine; Visit Provider Physician Assistant
DX: Z87.19 Personal history of other diseases of the digestive system (principal); K21.9 Gastro-esophageal reflux disease without esophagitis; K59.09 Other constipation; D12.6 Benign neoplasm of colon, unspecified
CPT/HCPCS: 99213

== ENCOUNTER → 2023-03-07 08:42 | Outpatient (BNVA) | payer MEDICARE, MEDICAID, SELFPAY | PROVIDERS: PCP Internal Medicine; Visit Provider Physician Assistant | DX: K59.09 Other constipation (principal); K21.9 Gastro-esophageal reflux disease without esophagitis; D12.6 Benign neoplasm of colon, unspecified; Z87.19 Personal history of other diseases of the digestive system | CPT/HCPCS: 99212 ==

== ENCOUNTER 2023-09-25 07:18 | Outpatient (AMB) | payer MEDICARE, MEDICAID, SELFPAY ==
--- NOTE | 2023-09-25 07:34 | MHC.OFFVIS ---
Intake Vital Signs 09/25/23 07:38 Height 5 ft 1 in Weight 206 lb 5.643 oz BMI 39.0 BP 124/82 Blood Pressure Location Rt brachial Position Sitting Pulse 81 Pulse Source Pulse Oximeter Temp 97.0 F Temp Source Skin Pulse Oximetry (%) 94 Oxygen Delivery Method Room Air Intake Visit Reasons: fibromyalgia Intake Note: Patient last seen 09/20/22 presents today for follow up and test results. C/o pain in legs Mental Health Specialist Required: No Accompanied by: Self / Same As Patient Allergies quan flavors Allergy (Intermediate, Uncoded 09/25/23 07:40) hives contrast dye Allergy (Intermediate, Uncoded 09/25/23 07:40) vomiting ,rash Medication List - Last Reconciled 09/25/23 by Randa Perea MD brexpiprazole (Rexulti) 2 mg PO DAILY buspirone 5 mg PO DAILY ibuprofen 800 mg PO Q8H PRN linaclotide (Linzess) 290 mcg PO QAM 30 days mirtazapine 15 mg PO BEDTIME multivitamin 1 tab PO DAILY omeprazole 40 mg (2 x 20 mg) PO DAILY 90 days pregabalin 225 mg PO BID propranolol 10 mg PO DAILY sumatriptan succinate mg PO PRN HPI HPI Comments History of Present Illness Details 58-year-old female with fibromyalgia returns for follow-up. She remains on Lyrica 225 mg Twice daily. She states that recently she has been having bilateral thigh pain. It is worse at night. Worse on the left side. She also has lower back pain. Worse on the left that radiates down to hurts her left buttock. She states that she has bulging discs she was evaluated by pain management in the past and received few injections, initially the injections helped then they stopped helping. Last injection was 4 years ago. Surgery was mentioned and patient was not interested. [facility] Medical History Smoker Arthritis Anxiety CAD (coronary artery disease) Rectocele Tubular adenoma of colon Fibromyalgia Surgical History History of cardiac catheterization Hx of colonoscopy Hx of section Family History Father Diabetes Mother Breast cancer Rheumatoid arthritis Social History Household Members: Significant Other Alcohol intake: never Patient Tobacco Use Status: Former Tobacco user Quit Date: 10/02/21 Cigarette Packs Per Day: 1 Cigarettes Per Day: 20.0 Years Smoked: 25 / Quit 3 months ago Current occupational status: unemployed Review of Systems Musc Details: Muscle pain Reports back pain, Reports arthralgias and Reports radiating pain into limb Physical Exam Vital Signs: Last Vital Signs Temp 97.0 F 09/25/23 07:38 Pulse 81 09/25/23 07:38 BP 124/82 09/25/23 07:38 Pulse Ox 94 09/25/23 07:38 Oxygen Delivery Method Room Air 09/25/23 07:38 BMI result Body Mass Index 39.0 Const General: cooperative, healthy appearing and comfortable Nutritional Appearance: obese morbidly obese Orientation/consciousness: patient oriented x3 Limitations: no limitations HEENT Head: Yes normocephalic and Yes atraumatic Resp Effort & Inspection: normal respiratory effort and able to speak in complete sentences Skin General skin exam: no rashes or lesions noted Neuro General: patient oriented x3 Extrem Other: No active synovitis Multiple fibromyalgia tender points Bilateral lumbar paraspinal muscle tenderness More pronounced on the left Positive straight leg raise test on the left Assessment & Plan Assessment & Plan (1) Fibromyalgia: Code(s): M79.7 - Fibromyalgia Plan: 58-year-old female with fibromyalgia returns for follow-up. On Lyrica 225 mg Twice daily. Will refill. Symptoms are fairly stable but has been having lower back pain and bilateral lower extremity pain, which should be evaluated by Pain Management. Will refill her Lyrica. Advised patient to discuss with her PCP whether they would refill her Lyrica. otherwise she can follow-up with me in 1 year (2) Lumbar radiculopathy, chronic: Code(s): M54.16 - Radiculopathy, lumbar region Plan: Follow-up with pain management Plan I spent 15 minutes reviewing patient's chart, evaluating patient, counseling patient and documenting in the chart Medications: Refilled pregabalin 225 mg PO BID 60 caps 5RF M79.7 - Fibromyalgia Coding Level of Care Code Est Pt Level 3 (08336) Diagnoses Fibromyalgia M79.7 Lumbar radiculopathy, chronic M54.16
[2023-09-25 07:38] VITALS: BP 124/82; PULSE 81; TEMP 36.1; O2SAT 94; BMI 39.0
== END 2023-09-25 08:00 | disposition home or self-care (01) ==
PROVIDERS: PCP Internal Medicine; Visit Provider Student in an Organized Health Care Education/Training Program
DX: M79.7 Fibromyalgia (principal); M54.16 Radiculopathy, lumbar region
CPT/HCPCS: 99213

== ENCOUNTER → 2023-09-25 07:18 | Outpatient (BNVA) | payer MEDICARE, MEDICAID, SELFPAY | PROVIDERS: PCP Internal Medicine; Visit Provider Student in an Organized Health Care Education/Training Program | DX: M79.7 Fibromyalgia (principal); M54.16 Radiculopathy, lumbar region | CPT/HCPCS: 99212 ==

== ENCOUNTER 2023-10-12 17:30 | Emergency (ER) | payer MEDICARE, MEDICAID, SELFPAY ==
--- NOTE | 2023-10-12 | ECG_ITS ---
Test Reason : ABD PAIN Blood Pressure : / mmHG Vent. Rate : 088 BPM Atrial Rate : 088 BPM P-R Int : 138 ms QRS Dur : 082 ms QT Int : 390 ms P-R-T Axes : 068 071 065 degrees QTc Int : 471 ms Sinus rhythm with Premature atrial complexes Low voltage QRS Borderline ECG No previous ECGs available Referred By: Generic ED Physician Electronically Signed By:Marcos Aguilar
--- NOTE | ~2023-10-12 | CT_ITS ---
EXAMINATION: CT ABDOMEN AND PELVIS WITHOUT CONTRAST CLINICAL INFORMATION: Pain COMPARISON: None available. TECHNIQUE: Multidetector volumetric imaging was performed from the superior aspect of the liver through the pubic symphysis. Sagittal and coronal reformatted images were obtained on the technologist's workstation. This CT examination was performed using dose optimization techniques as appropriate, variously including the following: *Automated exposure control *Adjustment of mA and/or kV according to patient size (this includes techniques or standardized protocols for targeted exams where dose is matched to indication/reason for exam; i.e. extremities or head) *Use of iterative reconstruction technique DLP: 830 mGy-cm FINDINGS: LUNG BASES: Emphysematous changes are present at the lung bases along with bronchial thickening. Multiple small pulmonary nodules are seen measuring 3 or 4 mm in size. The largest is in the right middle lobe subpleural (4:37). LIVER, GALLBLADDER, AND BILIARY TREE: The liver is mildly enlarged at 17.8 cm in cephalocaudad dimension. No focal hepatic lesion or biliary ductal dilatation is present. The gallbladder is unremarkable with no evidence of radiopaque gallstones, gallbladder wall thickening, or obvious pericholecystic inflammatory changes. PANCREAS: Unremarkable. SPLEEN: Unremarkable. ADRENAL GLANDS: Unremarkable. KIDNEYS AND URETERS: The kidneys are normal in size, shape, and attenuation. 2 punctate nonobstructing calculi are present in the left kidney measuring 2 to 3 mm in size. A single tiny 1 mm punctate calcification is seen in the right kidney. No hydronephrosis, hydroureter, or ureteral calculi seen. No perinephric stranding. BLADDER: Unremarkable. GASTROINTESTINAL TRACT: The small and large bowel are unremarkable. The appendix is unremarkable. ABDOMINAL WALL: No significant hernia is appreciated. LYMPH NODES: Normal. VASCULAR: Unremarkable. PELVIC VISCERA: Unremarkable. OSSEOUS STRUCTURES: Mild degenerative changes are present in the spine. CT/CT abdomen pelvis wo IV con IMPRESSION: 1. A cause for the patient's abdominal pain has not been found. 2. Incidental note made of mild hepatomegaly, nonobstructing renal calculi and degenerative changes in the spine. 3. Incidental note made of emphysema and bronchial thickening with multiple small pulmonary nodules. According to the UPDATED 2017 Fleischner Society recommendations, the advised follow-up imaging for solid nodules <6 mm in the middle/lower lobes is no routine follow up.
[2023-10-12 17:37] VITALS: BP 153/84; PULSE 85; RESP 20; TEMP 37.2; O2SAT 97; BMI 31.8
--- NOTE | 2023-10-12 17:53 | ED_ITS ---
HPI - Nausea/Vomiting/Diarrhea General Chief complaint: Nausea/Vomiting/Diarrhea Stated complaint: Abdominal pain Time Seen by Provider: 10/12/23 20:31 Source: patient, RN notes reviewed and old records reviewed Mode of arrival: ambulatory Limitations: no limitations History of Present Illness HPI Narrative: 58-year-old female presents for evaluation abdominal pain. She reports about 3 weeks ago she started with left upper abdominal pain and diarrhea. Her diarrhea has improved. She continues to endorse nausea and vomiting. She states her pain is worse after eating and worse at night with lying down She has an endoscopy scheduled for January Patient reports that she occasionally feels as though she has a lump in her left abdomen when the pain is at its worst She does not experience this right now She reports remote history of section x2 but no other abdominal surgeries Denies any fevers or chills. She does have a history of GERD Associated nausea: Yes Related Data Home Medications Medication Instructions Recorded Confirmed multivitamin 1 tab PO DAILY 09/02/20 09/25/23 ibuprofen 800 mg tablet 800 mg PO Q8H PRN pain 12/06/21 09/25/23 brexpiprazole 2 mg tablet (Rexulti) 2 mg PO DAILY 09/25/23 09/25/23 buspirone 5 mg tablet 5 mg PO DAILY 09/25/23 09/25/23 mirtazapine 15 mg tablet 15 mg PO BEDTIME 09/25/23 09/25/23 propranolol 10 mg tablet 10 mg PO DAILY 09/25/23 09/25/23 sumatriptan succinate 25 mg tablet mg PO PRN 09/25/23 09/25/23 Previous Rx's Medication Instructions Recorded omeprazole 20 mg capsule,delayed 40 mg (2 x 20 mg) PO DAILY 90 days 03/07/23 release #180 caps linaclotide 290 mcg capsule 290 mcg PO QAM 30 days #30 caps 06/29/23 (Linzess) pregabalin 225 mg capsule 225 mg PO BID #60 caps 09/25/23 calcium carbonate 1,000 1 tab PO QID PRN dyspepsia #30 tabs 10/12/23 mg-simethicone 60 mg chewable tablet (Maalox Advanced) omeprazole 40 mg capsule,delayed 40 mg PO BID #30 caps 10/12/23 release Allergies Allergy/AdvReac Type Severity Reaction Status Date / Time codeine AdvReac Nausea Verified 10/12/23 17:39 quan flavors Allergy Intermediate hives Uncoded 09/25/23 07:40 contrast dye Allergy Intermediate vomiting Uncoded 09/25/23 07:40 ,rash Review of Systems 2 Constitutional: Constitutional: Denies body ache(s), Denies chills and Denies fever(s) Eyes: Eyes: Denies blurry vision ENT: Denies vertigo and Denies sore throat Cardiovascular: Cardiovascular: Denies chest pain Respiratory: Respiratory: Denies cough and Denies pain with cough Gastrointestinal: Gastrointestinal: Reports abdominal pain, Denies melena, Reports bloating, Denies hematochezia, Reports diarrhea, Denies loose stools, Reports nausea and Reports vomiting Genitourinary: Genitourinary: Denies dysuria Musculoskeletal: Musculoskeletal: Denies back pain Integumentary/Breasts: Skin/Breast: Denies rash Neurologic: Denies vertigo PMFSH Past Medical History Medical History Smoker Arthritis Anxiety CAD (coronary artery disease) Rectocele Tubular adenoma of colon Fibromyalgia Surgical History History of cardiac catheterization Hx of colonoscopy Hx of section Family History Family History Father Diabetes Mother Breast cancer Rheumatoid arthritis Social History Social History Household Members: Significant Other Alcohol intake: never Patient Tobacco Use Status: Former Tobacco user Quit Date: 10/02/21 Cigarette Packs Per Day: 1 Cigarettes Per Day: 20.0 Years Smoked: 25 / Quit 3 months ago Smoked in Last 30 Days: No Use of substances other than those prescribed or required for medical reasons: No Advance Directives: No Advance Directives Information Provided: Yes Patient : No Current occupational status: unemployed Physical Exam 2 Vital Signs: Vital Signs: Last Vital Signs Temp 98.3 F 10/12/23 20:32 Pulse 80 10/12/23 20:32 Resp 16 10/12/23 20:32 BP 132/68 10/12/23 20:32 Pulse Ox 93 10/12/23 20:32 O2 Del Method Room Air 10/12/23 20:32 BMI result Body Mass Index 31.8 Const: General: healthy appearing, comfortable, no acute distress, alert and awake Nutritional Appearance: well nourished Orientation/consciousness: p atient oriented x3 HEENT: Head: Yes normocephalic and Yes atraumatic Eyes: Eyelids: Yes eyelids normal Conjunctivae: conjunctivae normal S clerae: sclerae normal Corneas: corneas normal Pupils: Equal, round and reactive pupils present EOM: EOMs intact bilaterally Neck: Neck: Yes full ROM Resp: Effort & Inspection: normal respiratory effort, able to speak in complete sentences and not labored GI: Inspection: No distended Palpation (GI): Soft to palpation, not firm, Tenderness to palpation present (GI) (Tenderness in the left upper abdomen epigastric region without guarding) in the epigastrum, in the LLQ and in the LUQ; not in the RUQ, no guarding and not rigid Skin: General skin exam: elasticity normal Neuro: General: patient oriented x3 Cranial nerves: Yes Equal, round and reactive pupils present and Yes Bilaterally intact EOM present Cognition (Neuro): normal cognition Course Course Course Narrative: This is an RME: Additional HPI, ROS, PE not included below will be deferred to primary provider. Patient is a 58-year-old female who presents emergency department for evaluation of nausea vomiting and diarrhea for the past 3 weeks. At first she thought that this may be due to a stomach bug her symptoms have not improved. She also reports a sensation of a hard lump in the epigastric area that comes and goes. Reevaluation(s) Reevaluation #1: Patient's workup largely unremarkable, CT scan does not show any obvious intra- abdominal pathology. I believe her pain is most likely related to peptic ulcer disease. The patient admits to taking ibuprofen 800 mg or 600 mg every single day for the last 4 years. She was advised to stop taking NSAIDs altogether. She will use Tylenol as needed for pain. I will increase her omeprazole to 40 mg b.i.d. for the next 2 weeks. I will prescribed Maalox and she will follow-up with her GI specialist Time: 23:11 Medications Administered Discontinued Medications Generic Name Dose Route Start Last Admin Trade Name Freq PRN Reason Stop Dose Admin Al Hydroxide/Mg Hydroxide 30 ml 10/12/23 22:29 10/12/23 22:36 Magnesium Hydrox/Alum Hydrox 30 Ml Oral.Susp PO 10/12/23 22:30 30 ml ONCE ONE Administration Sodium Chloride 1,000 mls @ 999 mls/hr 10/12/23 20:45 10/12/23 22:37 Ns IV 10/12/23 21:45 Infused .Q1H1M SPRING Infusion Lidocaine HCl 15 ml 10/12/23 22:29 10/12/23 22:36 Lidocaine Hcl Viscous 2 % 15 Ml Solution MUCOUS MEM 10/12/23 22:30 15 ml ONCE ONE Administration Ondansetron HCl 4 mg 10/12/23 20:40 10/12/23 20:51 Ondansetron Hcl 4 Mg/2 Ml Vial IVPUSH 10/12/23 20:41 4 mg ONCE ONE Administration Ondansetron HCl 4 mg 10/12/23 22:29 10/12/23 22:36 Ondansetron Odt 4 Mg Tab.Rapdis TRANSLINGU 10/12/23 22:30 4 mg ONCE ONE Administration Medical Decision Making Medical Decision Making [facility] Narrative: 58-year-old female presents for evaluation of abdominal pain. She reports having diarrhea 3 weeks ago but denies that currently. She continues to endorse nausea and vomiting. She describes burning pain that is worse after eating and worse with lying down. This raises suspicion for GERD/peptic ulcer disease. Patient states that currently her pain has improved since waiting in the waiting room. She declines analgesia at this time. We will get a CT scan of the abdomen pelvis to evaluate for more concerning pathology such as gastric perforation. the patient already takes omeprazole 20 mg b.i.d. patient's labs reviewed, no significant hematologic abnormalities. The patient has no leukocytosis or anemia. The patient's chloride is slightly elevated to 110, otherwise no significant chemistry abnormalities. Her glucose is elevated to 121. Liver enzymes are reassuring and the patient has no right upper quadrant tenderness so biliary disease is favored to be less likely Differential Diagnosis Differential Diagnoses: The differential diagnosis associated with the presentation includes Peptic ulcer disease GERD Gastritis Abdominal pain Cholelithiasis Acute cholecystitis Lab Data [facility] Lab Attestation statement: I reviewed the patient's lab results. See above 10/12/23 17:50 10/12/23 17:51 Labs: Lab Results 10/12/23 10/12/23 10/12/23 Range/Units 17:50 17:51 20:26 WBC 10.3 (4.8-10.8) X10*3/uL RBC 4.52 (4.20-5.50) X10*6/uL Hgb 12.9 (12.0-16.0) g/dl Hct 38.9 (37.0-47.0) % MCV 86.1 (80.0-98.0) fL MCH 28.5 (27.0-33.0) pg MCHC 33.2 (31.0-35.0) g/dl RDW 13.9 (11.0-16.0) % Plt Count 404 H (160-400) X10*3/uL MPV 9.8 (9.4-12.3) fL Immature Gran % (Auto) 1.5 H (0.0-0.4) % Neut % (Auto) 72.5 (45-73) % Lymph % (Auto) 18.0 L (20-40) % Richardson % (Auto) 6.5 (2-11) % Eos % (Auto) 0.8 (0-4) % Baso % (Auto) 0.7 (0-2) % Lymph # (Auto) 1.9 (1.2-4.9) X10*3/uL Richardson # (Auto) 0.7 (0.1-1.2) X10*3/uL Eos # (Auto) 0.1 (0.0-0.4) X10*3/uL Baso # (Auto) 0.1 (0.0-0.2) X10*3/uL Abs Immat Gran (auto) 0.15 H (0.00-0.03) X10*3/uL Absolute Neuts (auto) 7.5 (2.0-8.3) x10*3/uL Absolute Nucleated RBC 0.000 (0.0-0.012) X10*3/uL Nucleated RBC % (auto) 0.0 (0.0-0.2) /100WBC Sodium 142 (135-145) mmol/L Potassium 3.7 (3.3-5.1) mmol/L Chloride 110 H (96-108) mmol/L Carbon Dioxide 25 (22-29) mmol/L Anion Gap 11 L (12-20) BUN 14 (9-16) mg/dL Creatinine 0.78 (0.5-1.4) mg/dL Estim Creat Clear Calc 83.4 Estimated GFR > 60 Random Glucose 121 H (60-115) mg/dL Calcium 10.1 D (8.4-10.2) mg/dL Magnesium 2.1 (1.6-2.6) mg/dL Total Bilirubin 0.4 (0.0-1.0) mg/dL AST 12 (5-31) U/L ALT 15 (0-31) U/L Alkaline Phosphatase 105 (39-117) U/L Total Protein 8.1 H (6.5-8.0) g/dL Albumin 4.4 (3.5-5.0) g/dL Lipase 20 (8-78) U/L Urine Color Yellow Urine Appearance Turbid Urine pH 7.0 (5.0-9.0) Ur Specific [place] 1.020 (1.005-1.025) Urine Protein Negative (Neg-Trace) mg/dL Urine Glucose (UA) Negative (Negative) mg/dL Urine Ketones Negative (Negative) mg/dL Urine Blood Negative (Negative) Urine Nitrite Negative (Negative) Ur Leukocyte Esterase Small (1+) H (Negative) Urine RBC 0-2 (0-2) /HPF Urine WBC 21-50 H (0-5) /HPF Ur Squamous Epith Cells 3-5 (0-2) /HPF Urine Bacteria Trace (None Seen) Hyaline Casts 0-2 (0-2) /LPF Influenza Type A (PCR) NEGATIVE (Negative) Influenza Type B (PCR) NEGATIVE (Negative) RSV RNA Qual (PCR) NEGATIVE (Negative) SARS-CoV-2 RNA (RT-PCR) NEGATIVE (Negative) Independent Interpretation I performed an independent interpretation of an: CT Scan (No obvious acute intra-abdominal pathology) Radiology Impression Discussion of test interpretation with radiology: I have reviewed the radiologist's reading. Radiologist Impression: IMPRESSION: 1. A cause for the patient's abdominal pain has not been found. 2. Incidental note made of mild hepatomegaly, nonobstructing renal calculi and degenerative changes in the spine. 3. Incidental note made of emphysema and bronchial thickening with multiple small pulmonary nodules. Discharge Plan Discharge Clinical Impression: Abdominal pain Patient Disposition: Home, Self-Care Instructions: Peptic Ulcer (ED), Diet for Stomach Ulcers and Gastritis (ED) Additional Instructions: Your workup in the ER today was reassuring. Your symptoms are most likely related to peptic ulcers I recommend increasing omeprazole to 40 mg twice a day. Avoid all NSAIDs including ibuprofen, Advil, Aleve, Motrin Take Maalox as needed for abdominal pain Follow-up with GI, call Sunday to try to expedite your endoscopy Prescriptions: New omeprazole 40 mg capsule,delayed release(DR/EC) 40 mg PO BID Qty: 30 0RF Maalox Advanced 1,000-60 mg tablet,chewable 1 tab PO QID PRN (Reason: dyspepsia) Qty: 30 0RF No Action Linzess 290 mcg capsule 290 mcg PO QAM 30 Days Qty: 30 2RF multivitamin Tablet 1 tab PO DAILY ibuprofen 800 mg tablet 800 mg PO Q8H PRN (Reason: pain) buspirone 5 mg tablet 5 mg PO DAILY propranolol 10 mg tablet 10 mg PO DAILY Rexulti 2 mg tablet 2 mg PO DAILY mirtazapine 15 mg tablet 15 mg PO BEDTIME sumatriptan succinate 25 mg tablet PO PRN pregabalin 225 mg capsule 225 mg PO BID Qty: 60 5RF omeprazole 20 mg capsule,delayed release(DR/EC) 40 mg PO DAILY 90 Days Qty: 180 3RF Referrals: Roxanne Owusu PA-C [[employer]] - (peptic ulcer disease. Recommend endoscopy)
[2023-10-12 17:55] LABS: MANUAL DIFF FLAG NO
[2023-10-12 18:06] LABS: Basophils Absolute Auto 0.1 X10*3/uL (0.0-0.2); Basophils Percent Auto 0.7 % (0-2); Eosinophils Absolute Auto 0.1 X10*3/uL (0.0-0.4); Eosinophils Percent Auto 0.8 % (0-4); Hematocrit 38.9 % (37.0-47.0); Hemoglobin 12.9 g/dl (12.0-16.0); Imm Gran Abs Auto 0.15 X10*3/uL (0.00-0.03); Imm Gran Pct Auto 1.5 % (0.0-0.4); Lymphocytes Absolute Auto 1.9 X10*3/uL (1.2-4.9); Mean Corpuscular HGB Conc 33.2 g/dl (31.0-35.0); Mean Corpuscular Hemoglobin 28.5 pg (27.0-33.0); Mean Corpuscular Volume 86.1 fL (80.0-98.0); Mean Platelet Volume 9.8 fL (9.4-12.3); Monocytes Absolute Auto 0.7 X10*3/uL (0.1-1.2); Monocytes Percent Auto 6.5 % (2-11); Neutrophils Absolute Auto 7.5 x10*3/uL (2.0-8.3); Neutrophils Percent Auto 72.5 % (45-73); Platelet Count 404 X10*3/uL (160-400); Red Blood Count 4.52 X10*6/uL (4.20-5.50); Red Cell Distribution Width 13.9 % (11.0-16.0); White Blood Count 10.3 X10*3/uL (4.8-10.8)
[2023-10-12 18:13] LABS: Alanine Aminotransferase 15 U/L (0-31); Albumin Level 4.4 g/dL (3.5-5.0); Alkaline Phosphatase 105 U/L (39-117); Anion Gap 11 (12-20); Aspartate Amino Transferase 12 U/L (5-31); Bilirubin Total 0.4 mg/dL (0.0-1.0); Blood Urea Nitrogen 14 mg/dL (9-16); Calcium 10.1 mg/dL (8.4-10.2); Carbon Dioxide 25 mmol/L (22-29); Chloride 110 mmol/L (96-108); Creatinine Clr Calc Pharmacy 83.4; Estimated Glomerular Filt Rate > 60; Glucose Random 121 mg/dL (60-115); Lipase 20 U/L (8-78); Magnesium 2.1 mg/dL (1.6-2.6); Potassium 3.7 mmol/L (3.3-5.1); Sodium 142 mmol/L (135-145); Total Protein 8.1 g/dL (6.5-8.0)
[2023-10-12 18:37] LABS: Influenza A PCR NEGATIVE (Negative); Influenza B PCR NEGATIVE (Negative); Resp Syncy Virus RNA Qual PCR NEGATIVE (Negative); SARS COV2 PCR INHOUSE NEGATIVE (Negative)
[2023-10-12 20:32] VITALS: BP 132/68; PULSE 80; RESP 16; TEMP 36.8; O2SAT 93
[2023-10-12 20:37] LABS: Appearance Urine Turbid; Color Urine Yellow; Glucose Urine UA Negative (Negative); Leukocyte Esterase Urine Small (1+) (Negative); Nitrite Urine Negative (Negative); UMIC TRIGGER UACC YES; Urine Blood Negative (Negative); Urine Ketones Negative (Negative); Urine Protein Negative (Neg-Trace)
[2023-10-12 20:42] LABS: Bacteria Urine Trace (None Seen); Hyaline Casts Urine 0-2 /LPF (0-2); RBC Urine 0-2 /HPF (0-2); UACC Culture Trigger YES; WBC Urine 21-50 /HPF (0-5)
[2023-10-12] MEDS: 0.9 % Sodium Chloride 1,000 ML 999 ML IV (20:51)
[2023-10-12] MEDS: ondansetron HCL 4 MG/2 ML VIAL IVPUSH (20:51)
[2023-10-12] MEDS: Lidocaine HCl Viscous 2 % 15 ML SOLUTION MUCOUS MEM (22:36)
[2023-10-12] MEDS: Ondansetron ODT 4 MG TAB.RAPDIS TRANSLINGU (22:36)
[2023-10-12] MEDS: Magnesium Hydrox/Alum Hydrox 30 ML ORAL.SUSP PO (22:36)
[2023-10-12 23:27] VITALS: BP 132/68; PULSE 80; RESP 16; TEMP 36.8; O2SAT 98
== END 2023-10-12 23:28 | disposition home or self-care (01) ==
PROVIDERS: Emergency Provider Internal Medicine; PCP Internal Medicine
DX: R10.12 Left upper quadrant pain (principal); R11.2 Nausea with vomiting, unspecified; R94.31 Abnormal electrocardiogram [ECG] [EKG]; R06.02 Shortness of breath; Z87.891 Personal history of nicotine dependence; Z20.822 Contact with and (suspected) exposure to COVID-19; Z79.899 Other long term (current) drug therapy
CPT/HCPCS: 0241U; 74176; 80053; 81001; 83690; 83735; 85025; 87086; 93005; 96361; 96374; 99284; 99285; J2405

== ENCOUNTER → 2023-10-12 17:44 | Outpatient (BNV) | payer MEDICARE, MEDICAID, SELFPAY | PROVIDERS: Emergency Provider Internal Medicine; PCP Internal Medicine; Visit Provider Internal Medicine Cardiovascular Disease | DX: R10.9 Unspecified abdominal pain (principal) | CPT/HCPCS: 93010 ==

== ENCOUNTER 2023-10-25 11:04 | Outpatient (AMB) | payer MEDICARE, MEDICAID, SELFPAY ==
--- NOTE | 2023-10-25 11:07 | MHC.OFFVIS ---
Intake Vital Signs 10/25/23 11:12 Height 5 ft 2 in Weight 205 lb 0.478 oz BMI 37.5 BP 114/71 Blood Pressure Location Lt brachial Position Sitting Pulse 78 Intake Visit Reasons: Seen in ER on 10/14/23 Intake Note: Yared presents in the office as a follow up to being in the ED. CC: States EGD is in january and she just has concerns about her ulcer. Allergies codeine Adverse Reaction (Verified 10/25/23 11:13) Nausea quan flavors Allergy (Intermediate, Uncoded 10/25/23 11:13) hives contrast dye Allergy (Intermediate, Uncoded 10/25/23 11:13) vomiting ,rash Medication List - Last Reconciled 10/25/23 by Roxanne Owusu PA-C brexpiprazole (Rexulti) 2 mg PO DAILY buspirone 5 mg PO DAILY calcium carbonate-simethicone 1,000-60 mg (Maalox Advanced) 1 tab PO QID PRN linaclotide (Linzess) 290 mcg PO QAM 30 days mirtazapine 15 mg PO BEDTIME multivitamin 1 tab PO DAILY omeprazole 40 mg PO BID pregabalin 225 mg PO BID propranolol 10 mg PO DAILY sumatriptan succinate mg PO PRN HPI HPI Comments History of Present Illness Details 58-year-old female acid reflux seen last 02/2023 at which time she was scheduled for a 1 year repeat EGD with Dr. Goldberg She presents today-she went to the ED on 10/12 23-PPI dose was increased and recommended GI follow-up she says she went to ED with N/V- was told to get EGD sooner- she is schedued end January- ppi was increased with improved sx-she has not lost weight- appetite isn't great She has had no further nausea or vomiting, no hematemesis, hematochezia no weight loss fever or chills PFSH Medical History Smoker Arthritis Anxiety CAD (coronary artery disease) Rectocele Tubular adenoma of colon Fibromyalgia Surgical History History of cardiac catheterization Hx of colonoscopy Hx of section Family History Father Diabetes Mother Breast cancer Rheumatoid arthritis Social History Household Members: Significant Other Alcohol intake: never Patient Tobacco Use Status: Former Tobacco user Quit Date: 10/02/21 Cigarette Packs Per Day: 1 Cigarettes Per Day: 20.0 Years Smoked: 25 / Quit 3 months ago Current occupational status: unemployed Review of Systems Const All systems reviewed & are unremarkable except as noted in HPI and below Card Denies chest pain and Denies dyspnea Resp Denies dyspnea GI Denies abdominal pain, Reports bloating, Denies hematochezia, Denies change in bowel habits, Reports dyspepsia, Reports heartburn, Reports nausea and Denies vomiting Psych Reports anxiety Physical Exam Vital Signs: Last Vital Signs Pulse 78 10/25/23 11:12 BP 114/71 10/25/23 11:12 BMI result Body Mass Index 37.5 Const General: cooperative, healthy appearing, comfortable and no acute distress Nutritional Appearance: overweight Orientation/consciousness: patient oriented x3 Limitations: no limitations Resp Effort & Inspection: normal respiratory effort and able to speak in complete sentences Auscultation: clear to auscultation bilaterally, no rales, no rhonchi and no wheezes Cardio Rate: regular rate Rhythm: regular rhythm Heart sounds: S1 normal heart sound present and S2 normal heart sound present GI Palpation (GI): Soft to palpation and nontender Auscultation: normal bowel sounds Neuro General: patient oriented x3 Extrem General: Yes full ROM Psych Appearance: grossly normal Mental Status: mental status grossly normal Speech and movement: Normal speech and movement present Affect: Labile affect present Attitude: cooperative Thought content: Normal thought content present Assessment & Plan Assessment & Plan (1) Acid reflux: Comment: Omeprazole-40 mg Avoid culprits reinforced Code(s): K21.9 - Gastro-esophageal reflux disease without esophagitis (2) Manley's esophagus: Comment: Repeat EGD 1 year- WATS 3 D continue PPI increase to Omeprazole 40 mg Code(s): K22.70 - Manley's esophagus without dysplasia Plan omeprazole 40 mg Cararfate EGD- sooner if avail-reviewed procedure need for escort rare risks Medications: New sucralfate 1 g (10 mL) PO QIDACHS 4 weeks 420 mL 0RF omeprazole 40 mg (2 x 20 mg) PO DAILY 30 days 60 caps 5RF Patient Instructions: omeprazole 40 mg Cararfate EGD- sooner if avail-she is given contact information and she will check back Meanwhile call with any questions or concerns Coding Level of Care Code Est Pt Level 4 (62567) Diagnoses Acid reflux K21.9 Manley's esophagus K22.70 Time Spent (min) 30
[2023-10-25 11:12] VITALS: BP 114/71; PULSE 78; BMI 37.5
== END 2023-10-25 12:50 | disposition home or self-care (01) ==
PROVIDERS: PCP Internal Medicine; Visit Provider Physician Assistant
DX: K21.9 Gastro-esophageal reflux disease without esophagitis (principal); K22.70 Barrett's esophagus without dysplasia
CPT/HCPCS: 99214

== ENCOUNTER → 2023-10-25 11:04 | Outpatient (BNVA) | payer MEDICARE, MEDICAID, SELFPAY | PROVIDERS: PCP Internal Medicine; Visit Provider Physician Assistant | DX: K21.9 Gastro-esophageal reflux disease without esophagitis (principal); K22.70 Barrett's esophagus without dysplasia | CPT/HCPCS: 99212 ==

== ENCOUNTER 2023-10-30 06:40 | Day surgery (SDC) | payer MEDICARE, MEDICAID, SELFPAY ==
[2023-10-30 07:05] VITALS: BMI 38.4
[2023-10-30 07:10] VITALS: BP 121/64; PULSE 76; RESP 16; TEMP 36.6; O2SAT 96
[2023-10-30] MEDS: Lactated Ringers 1,000 ML 80 ML IVCONT (07:44)
--- NOTE | 2023-10-30 07:44 | PC.NURSE ---
Patient arrived to preop. Patient expressed that she was recently diagnosed with early COPD and that she saw a Warehouse Supervisor from [facility] who assessed her and said to follow up as needed. Patient has chronic junky cough, custodial smoker (quit two years ago), chronic dyspnea on exertion, every other day marijuana smoker, current SaO2 95-96% room air. Lung sounds clear on right side, bronchial sounds present on left side. Dr. Watkins made aware, at bedside to assess. No new orders per him, may proceed with procedure.
--- NOTE | 2023-10-30 08:04 | MHC.SHP ---
Pre-Procedural Eval Section A - 24 Hr Update-Section A only Date of Service: 10/30/23 Section B - Complete if H&P > 30 days Chief Complaint: Personal history of other diseases of the digestiv Relevant Family History (Specify if Yes): No Relevant Social History: None Present Medications: see Short Stay Collaborative assessment Medical History: Significant History (Anxiety Arthritis CAD (coronary artery disease) Fibromyalgia Rectocele Smoker Tubular adenoma of colon) History of Previous Operations: Relevant previous surgery/procedure and date(s) (ory of cardiac catheterization Hx of section Hx of colonoscopy) Allergies: Allergies Allergy/AdvReac Type Severity Reaction Status Date / Time codeine AdvReac Severe Nausea Verified 10/30/23 07:03 quan flavors Allergy Intermediate hives Uncoded 10/30/23 07:03 contrast dye Allergy Intermediate vomiting Uncoded 10/30/23 07:03 ,rash Review of Systems Sugical H&P ROS: Negative: Constitution, Cardiovascular, Respiratory, Neurological, Psychiatric, Hem-Onc, Allergic/Immunologic, Gastrointestinal, Genitourinary, Musculoskeletal, Integumentary, Endocrine and Eyes/Ears/Nose/Throat Exam Surgical H&P Exam: Normal: HEENT, Normal: Heart, Normal: Lungs, Normal: Extremities, Normal: Abdomen, Normal: Skin and Normal: Neurological Plan Diagnosis/Plan: Unchanged I have reviewed the history and physical and performed a pertinent physical examination on my patient. No changes have occurred unless specified. Time Spent With Patient Time: Total time managing care of this patient today ____ minutes.
--- NOTE | 2023-10-30 08:06 | W.PM.OPN ---
Operative Note Operative Note Date of Service: 10/30/23 Narrative: Procedure Description: EGD Indication: barretts, epigastric pain Anesthesia: MAC FLEXIBLE TRANSORAL UPPER GASTROINTESTINAL ENDOSCOPY UPPER ENDOSCOPY Consent: Indications for the procedure and potential complications of bleeding, perforation, reaction to medications and missed diagnosis were discussed with the patient and informed consent was obtained. Instrument: Olympus GIF H 190 J mid size upper endoscope Monitoring: Vital signs and clinical assessment, continuous EKG monitoring, Pulse oximetry, Carbon Dioxide monitoring and blood pressure monitoring were done throughout the procedure. Procedure: The patient was placed in the left lateral decubitis position and pre-procedure medications were administered and a bite block was placed. The endoscope was inserted into the mouth and advanced under direct vision to the third part of duodenum. A careful inspection was made as the upper endoscope was withdrawn including a retroflexed examination of the proximal stomach; Findings and interventions are described below. Findings: Larynx:normal Esophagus: GE junction at 37? cm, diaphragm hiatus at 37 cm, , irregular Z line, with short segment barretts tongues noted, bx taken from GEJ as well as WATS 3D brushings. Stomach: Patchy gastric erythema with scarring noted . Biopsies were obtained. Grade 2 flap valve on retroflexed examination of the cardia. there was salmon pink tissue islands around the pylorus possibly consistent with intestinal metaplasia, bx taken Duodenum: Normal bulb and descending duodenum, Intervention: Biopsies as noted above, WATS 3d brushings Impression/Findings: gastritis barretts esophagus PLAN: cont taking PPI, maybe consider cutting to OD, can consider adding carafate for few weeks and see if helps sx gastric emptying study if ongoing sx reflux precautions possible repeat EGD 3-5 yrs depending on path and WATS
--- NOTE | 2023-10-30 08:41 | HO.ANESPROP2 ---
[facility] Active Problems Active Problems: All Active Problems Lumbar radiculopathy, chronic (Acute) Obesity (BMI 30-39.9) (Acute) Chronic pain of both shoulders (Acute) Macromastia (Acute) Schatzki's ring (Acute) Cervicalgia (Acute) Cervical spondylosis (Acute) Lumbar spondylolysis (Acute) Muscle spasm (Acute) History of Manley's esophagus (Acute) Acid reflux (Acute) Manley's esophagus (Acute) Hiatal hernia (Acute) Chronic constipation (Acute) Dysphagia (Acute) Acid reflux (Acute) Dyspepsia (Acute) Tubular adenoma of colon (Acute) Fibromyalgia (Acute) Past Medical History Medical History (Updated 10/30/23 @ 06:56 by Eufemia Wiggins) COPD (chronic obstructive pulmonary disease) Smoker Arthritis Anxiety CAD (coronary artery disease) Rectocele Tubular adenoma of colon Fibromyalgia Family History Family History Father Diabetes Mother Breast cancer Rheumatoid arthritis Family history of problems with anesthesia: No Surgical History Surgical History (Updated 10/30/23 @ 07:02 by Eufemia Wiggins) History of surgery on lower extremity History of genitourinary surgery History of cardiac catheterization Hx of colonoscopy Hx of section History of Problems with Anesthesia: No Social History Social History Household Members: Significant Other Alcohol intake: never Patient Tobacco Use Status: Former Tobacco user Quit Date: 2021 Tobacco use type: Cigarette Cigarette Packs Per Day: 1 Cigarettes Per Day: 20.0 Years Smoked: 24 Smoked in Last 30 Days: No Use of substances other than those prescribed or required for medical reasons: Yes Substance Use Frequency: Daily Are you DNR?: No Advance Directives: No Advance Directives Information Provided: Yes Current occupational status: unemployed Meds Allergies Allergy/AdvReac Type Severity Reaction Status Date / Time codeine AdvReac Severe Nausea Verified 10/30/23 07:03 quan flavors Allergy Intermediate hives Uncoded 10/30/23 07:03 contrast dye Allergy Intermediate vomiting Uncoded 10/30/23 07:03 ,rash Active Medications: Current Medications Lactated Ringer's (Lr) 1,000 mls @ 80 mls/hr IVCONT .[id number] SPRING Last Admin: 10/30/23 07:44 Dose: 80 mls/hr Home Medications ?Medication ?Instructions ?Recorded ?Confirmed ?Last Taken ?Type multivitamin 1 tab PO DAILY 09/02/20 10/30/23 Unknown History brexpiprazole 2 mg tablet (Rexulti) 2 mg PO DAILY 09/25/23 10/30/23 Unknown History buspirone 5 mg tablet 5 mg PO DAILY 09/25/23 10/30/23 Unknown History mirtazapine 15 mg tablet 15 mg PO BEDTIME 09/25/23 10/30/23 Unknown History propranolol 10 mg tablet 10 mg PO DAILY 09/25/23 10/30/23 10/30/23 History sumatriptan succinate 25 mg tablet 25 mg PO DAILY PRN Migraine 09/25/23 10/30/23 Unknown History Headache Exam Height,Weight and Vital Signs: Height 5 ft 2 in Weight 95.164 kg Last Vital Signs Temp 97.9 F 10/30/23 07:10 Pulse 76 10/30/23 07:10 Resp 16 10/30/23 07:10 BP 121/64 10/30/23 07:10 Pulse Ox 96 10/30/23 07:10 O2 Del Method Room Air 10/30/23 07:10 Airway Mallampati Class: III TM Dist: >3cm Neck ROM: Full Denture: Upper Assessment and Plan Assessment Anesthesia Assessment: Anesthesia Plan Discussed and Chart Reviewed Final Anesthetic Review Family History of Problems with Anesthesia: No History of Problems with Anesthesia: No NPO: Yes ASA Class: III Final Preanesthetic Review: No Changes in Pt Med Stat, Meds/Allgs Chart Reviewed, Consent Obtained/Reviewed and Anes Risks/Benef Reviewed Patient Risk: Intermediate Procedure Risk: Low Anesthetic Plan Anesthetic Plan: TIVA Disposition: Standard PACU
[2023-10-30 08:50] VITALS: BP 97/59; PULSE 70; RESP 16; TEMP 36.6; O2SAT 100
[2023-10-30 09:05] VITALS: BP 118/77; PULSE 73; RESP 18; O2SAT 100
[2023-10-30 09:10] VITALS: RESP 18; TEMP 36.4; O2SAT 97
== END 2023-10-30 09:35 | disposition home or self-care (01) ==
PROVIDERS: PCP Internal Medicine; Visit Provider Internal Medicine Gastroenterology
PROC: 0DJ08ZZ Inspection of Upper Intestinal Tract, Via Natural or Artificial Opening Endoscopic (ICD-10-PCS; CPT 43235; principal; 2023-10-30 08:20)
DX: K22.70 Barrett's esophagus without dysplasia (principal); K29.70 Gastritis, unspecified, without bleeding; K21.9 Gastro-esophageal reflux disease without esophagitis; Z79.899 Other long term (current) drug therapy
CPT/HCPCS: 43239; 88305; 88313; 88342; J2405; J2704; J3010

== ENCOUNTER → 2023-10-30 06:40 | Outpatient (BNV) | payer MEDICARE, MEDICAID, SELFPAY | PROVIDERS: PCP Internal Medicine; Visit Provider Internal Medicine Gastroenterology | DX: K22.70 Barrett's esophagus without dysplasia (principal); K29.70 Gastritis, unspecified, without bleeding | CPT/HCPCS: 43239 ==

== ENCOUNTER 2023-11-26 07:56 | Outpatient (AMB) | payer MEDICARE, MEDICAID, SELFPAY ==
--- NOTE | 2023-11-26 08:04 | A.OFFVIS_ITS ---
Vital Signs 11/26/23 08:15 Height 5 ft 2 in Weight 180 lb BMI 32.9 BP 119/75 Blood Pressure Location Lt brachial Position Sitting Pulse 85 Intake Visit Reasons: S/P EGD with moran; Dr. Goldberg Intake Note: Patient follow up for EGD with moran Patient cc: Nauseas, abdominal bloating. Denies any other GI issues. Clinic Cma Required: No Accompanied by: Self / Same As Patient Allergies codeine Adverse Reaction (Severe, Verified 11/26/23 08:10) Nausea quan flavors Allergy (Intermediate, Uncoded 10/30/23 07:03) hives contrast dye Allergy (Intermediate, Uncoded 10/30/23 07:03) vomiting ,rash Medication List - Last Reconciled 11/26/23 by Roxanne Owusu PA-C brexpiprazole (Rexulti) 2 mg PO DAILY buspirone 5 mg PO DAILY linaclotide (Linzess) 290 mcg PO QAM mirtazapine 15 mg PO BEDTIME multivitamin 1 tab PO DAILY omeprazole 40 mg PO BID pregabalin 225 mg PO BID propranolol 10 mg PO DAILY sucralfate 10 mL PO QID sumatriptan succinate 25 mg PO DAILY PRN HPI Comments Details: A 58 y/o female hx Barretts 2020- f/u after repeat EGD with Wats- She has reflux sx- if not tsking ppi kayla- has Reviewed procedure report- path and recommendations Colonoscopy- 2019- adenoma- due 2024- for recall PFSH Medical History (Updated 11/26/23 @ 08:30 by Roxanne Owusu PA-C) COPD (chronic obstructive pulmonary disease) Smoker Arthritis Anxiety CAD (coronary artery disease) Rectocele Tubular adenoma of colon Fibromyalgia Surgical History (Updated 11/26/23 @ 08:21 by Roxanne Owusu PA-C) History of esophagogastroduodenoscopy (EGD) History of surgery on lower extremity History of genitourinary surgery History of cardiac catheterization Hx of colonoscopy Hx of section Family History Father Diabetes Mother Breast cancer Rheumatoid arthritis Social History Household Members: Significant Other Alcohol intake: never Patient Tobacco Use Status: Former Tobacco user Quit Date: 2021 Tobacco use type: Cigarette Cigarette Packs Per Day: 1 Cigarettes Per Day: 20.0 Years Smoked: 24 Current occupational status: unemployed Review of Systems Const All systems reviewed & are unremarkable except as noted in HPI and below Card Denies chest pain and Denies dyspnea Resp Denies dyspnea GI Denies abdominal pain, Reports heartburn and Denies nausea Physical Exam Vital Signs: Last Vital Signs Pulse 85 11/26/23 08:15 BP 119/75 11/26/23 08:15 BMI result Body Mass Index 32.9 Const General: cooperative, healthy appearing, comfortable and no acute distress Orientation/consciousness: patient oriented x3 Limitations: no limitations Resp Effort & Inspection: normal respiratory effort and able to speak in complete sentences Skin General skin exam: no rashes or lesions noted Neuro General: patient oriented x3 Extrem General: Yes full ROM Psych Appearance: grossly normal and well kempt Mental Status: mental status grossly normal Speech and movement: Normal speech and movement present and Clear speech present Affect: normal affect Attitude: cooperative Thought process: Normal thought process present Thought content: Normal thought content present Insight: Good insight present (Psych) Judgement: Good judgement present (Psych) Results Reviewed Results Reviewed: 10/2023-Dr. Goldberg Impression/Findings: gastritis barretts esophagus PLAN: cont taking PPI, maybe consider cutting to OD, can consider adding carafate for few weeks and see if helps sx gastric emptying study if ongoing sx reflux precautions possible repeat EGD 3-5 yrs depending on path and WATS Surgical Pathology [id number] Name: Yared Koroma Age/Sex: 58/F Attending: Disha Goldberg MD : 1965 Submitted by: Disha Goldberg MD Copies to: Rosi Hayes MD MR #: [id number] Status: [facility] [place] Collected: 10/30/23 Location: [facility] Received: 10/30/23 Diagnosis A. Duodenum, biopsy: Duodenal mucosa within normal limits. B. Stomach, pylorus, biopsy: Gastroduodenal transitional mucosa with mild reactive changes; otherwise within normal limits. C. Stomach, random, biopsy: Oxyntic mucosa within normal limits; no Helicobacter organisms seen. D. EG junction, biopsy: - Cardiac-type mucosa with mild chronic inactive inflammation; no intestinal me taplasia seen. - Squamous mucosa within normal limits. E. Esophagus, distal, biopsy: Squamous epithelium within normal limits; no inflammation seen. Clinical History Pre-Op Dx: Upper gastric pain Post-Op Dx: Esophagitis and gastritis Microscopic Description A-E. Microscopic sections examined. No metaplastic changes are seen, supported by AB/PAS stains (A- D) - the transitional nature of the gastroduodenal mucosa in part B is highlighted by the AB/PAS stains; no Helicobacter organisms are seen, supported by H. pylori immunostain (C). Material Received A. Duodenum bx B. Gastric pylorus bx C. Random stomach bx D. EG junction E. Distal esophagus bx Gross Description Received in 5 parts. Part A: Received in formalin labeled ?duodenum bx's? are 3 ayers-pink irregular tissue fragments each measuring 0.15 cm, submitted in toto in a cassette labeled A. Part B: Received in formalin labeled ?gastric pylorus bx's? are 3 ayers-pink irregular and rectangular tissue fragments ranging from 0.15-0.3 cm, submitted in toto in a cassette labeled B. Patient: Yared Koroma Age/Sex: 58/F MR#: [id number] Page 1 of 2 Assessment & Plan Assessment & Plan (1) Acid reflux: Comment: Continue PPI, avoid culprits, remain upright 2-3 hours after eating especially her evening meal Code(s): K21.9 - Gastro-esophageal reflux disease without esophagitis Category: Medical (2) Manley's esophagus: Comment: Repeat EGD 5 year continue PPI Code(s): K22.70 - Manley's esophagus without dysplasia Category: Medical (3) Tubular adenoma of colon: Comment: colonoscopy 2 yrs ago- adenoma, need records- due 2024 Code(s): D12.6 - Benign neoplasm of colon, unspecified Category: Medical Plan: 1 year reminder - due for polyp surveillance colonoscop Repeat EGD 5 years- pls place reminder Contiue ppi once daily reflux precautions-reviewed Plan EGD 5 years- pls place reminder for colonoscopy- hx adenoma Medications: Changed From omeprazole 40 mg PO BID 30 caps 0RF To omeprazole 40 mg PO ONCE 30 days 30 caps 6RF Patient Instructions: 1 year reminder - due for polyp surveillance colonoscopy reviewed path- questions answered to her satisfaction Repeat EGD 5 years- pls place reminder Contiue ppi once daily reflux precautions-reviewed Call with concerns Coding Level of Care Code Est Pt Level 3 (77022) Diagnoses Acid reflux K21.9 Manley's esophagus K22.70 Tubular adenoma of colon D12.6 Time Spent (min) 30
[2023-11-26 08:15] VITALS: BP 119/75; PULSE 85; BMI 32.9
== END 2023-11-26 09:13 | disposition home or self-care (01) ==
PROVIDERS: PCP Internal Medicine; Visit Provider Physician Assistant
DX: K21.9 Gastro-esophageal reflux disease without esophagitis (principal); K22.70 Barrett's esophagus without dysplasia; D12.6 Benign neoplasm of colon, unspecified
CPT/HCPCS: 99213

== ENCOUNTER → 2023-11-26 07:56 | Outpatient (BNVA) | payer MEDICARE, MEDICAID, SELFPAY | PROVIDERS: PCP Internal Medicine; Visit Provider Physician Assistant | DX: K21.9 Gastro-esophageal reflux disease without esophagitis (principal); K22.70 Barrett's esophagus without dysplasia; D12.6 Benign neoplasm of colon, unspecified | CPT/HCPCS: 99212 ==

== ENCOUNTER 2024-10-29 08:45 | Outpatient (AMB) | payer MEDICARE, MEDICAID, SELFPAY ==
--- NOTE | 2024-10-29 08:46 | MHC.OFFVIS ---
Vital Signs 10/29/24 08:47 Height 5 ft 2 in Weight 208 lb BMI 38.0 BP 120/68 Blood Pressure Location Lt brachial Position Sitting Pulse 83 Pulse Oximetry (%) 98 Oxygen Delivery Method Room Air Intake Visit Reasons: GERD/Pre colonoscopy -[facility] 11/26/2023 Intake Note: Patient complex follow up for GERD/Pre colonoscopy -[facility] 11/26/2023, last EGD 10/30/23 with 3/5 yrs recall. Patient cc: loose bowels, tiredness, and swallowing difficulty with saliva on and off. [employer] Dem[employer] Required: No Accompanied by: Self / Same As Patient Allergies codeine Adverse Reaction (Severe, Verified 10/29/24 08:46) Nausea quan flavors Allergy (Intermediate, Uncoded 10/30/23 07:03) hives contrast dye Allergy (Intermediate, Uncoded 10/30/23 07:03) vomiting ,rash Medication List - Last Reconciled 10/29/24 by Mirna Stout CNP bisacodyl 5 mg PO ONCE 1 day brexpiprazole (Rexulti) 1 mg PO DAILY buspirone 5 mg PO DAILY linaclotide (Linzess) 290 mcg PO QAM mirtazapine 15 mg PO BEDTIME multivitamin 1 tab PO DAILY omeprazole 40 mg PO ONCE 30 days polyethylene glycol 3350 (Miralax) 238 grams PO ONCE pregabalin 225 mg PO BID propranolol 10 mg PO DAILY sucralfate 10 mL PO QID sumatriptan succinate 25 mg PO DAILY PRN HPI HPI GERD/Pre colonoscopy -[facility] 11/26/2023: Details: Patient is a 59-year-old female with PMH of COPD, nicotine dependence, anxiety 2, CAD and fibromyalgia. Last visit with EDENILSON [place] 11/26/2023 for follow-up after EGD. Pt is here today for polyp surveillance pre-screening colonoscopy. She is apprehension about completing colonoscopy due to previous poor experience. She reports GERD symptoms are well controlled with omeprazole 40 mg daily. States if she misses a dose she will experience pyrosis, indigestion and ab pain. She reports constipation is well controlled with Linzess. Reports BM 1-2x/day, mostly type 6 with occasional type 4. She reports trouble swallowing her salvia X 6-8 months. States she is able to tolerated liquids and solids. Shares this is a known side effects of rexulti and she is working with her prescriber to wean off. She will start Rexulti 1 mg tomorrow. Patient denies: systemic symptoms, n/v, appetite changes, unintentional wt loss, cardiopulmonary symptoms, bladder changes or melena/hematochezia. She is newly dx type 2 diabetic . Has been working on lifestyle modifications to avoid pharmacological management. She is scheduled is follow up with PCP in December. Shares last a1c of 6.8 approx one month ago. Social hx: denies ETOH use denies recreational drug use former smoker, cessation 2020 denies personal hx of CA Family hx: Mother, breast CA passed age 77 for unrelated condition [facility] Medical History (Updated 10/30/24 @ 12:23 by Mirna Stout CNP) COPD (chronic obstructive pulmonary disease) Smoker Arthritis Anxiety CAD (coronary artery disease) Rectocele Tubular adenoma of colon Fibromyalgia Surgical History History of esophagogastroduodenoscopy (EGD) History of surgery on lower extremity History of genitourinary surgery History of cardiac catheterization Hx of colonoscopy Hx of section Family History Father Diabetes Mother Breast cancer Rheumatoid arthritis Social History Household Members: Significant Other Alcohol intake: never Patient Tobacco Use Status: Former Tobacco user Tobacco use type: Cigarette Cigarette Packs Per Day: 1 Cigarettes Per Day: 20.0 Years Smoked: 24 Current occupational status: unemployed Review of Systems Const Reports as per HPI ENT Reports as per HPI Card Reports as per HPI Resp Reports as per HPI GI Reports as per HPI Reports as per HPI Physical Exam Vital Signs: Last Vital Signs Pulse 83 10/29/24 08:47 BP 120/68 10/29/24 08:47 Pulse Ox 98 10/29/24 08:47 Oxygen Delivery Method Room Air 10/29/24 08:47 BMI result Body Mass Index 38.0 Const General: healthy appearing, no acute distress and well developed Nutritional Appearance: well nourished Orientation/consciousness: patient oriented x3 HEENT Head: Yes normal to inspection, Yes normocephalic and Yes atraumatic Face and sinus: Yes normal facial exam Eyes General: appearance normal, both eyes and all related structures Neck Neck: Yes normal visual inspection Resp Effort & Inspection: normal respiratory effort, able to speak in complete sentences, no tracheal deviation and symmetric chest movement Auscultation: clear to auscultation bilaterally Cardio Jugular venous distension: no JVD Rate: regular rate Rhythm: regular rhythm Heart sounds: S1 normal heart sound present, S2 normal heart sound present, no gallops and no murmurs GI Inspection: No distended and Yes obesity Palpation (GI): Soft to palpation, not firm, nontender and No hepatosplenomegaly present Auscultation: normal bowel sounds Neuro General: patient oriented x3 Gait exam (Neuro): Normal gait present Psych Appearance: grossly normal Mental Status: mental status grossly normal Speech and movement: Normal speech and movement present Affect: normal affect Attitude: cooperative Thought process: Normal thought process present Thought content: Normal thought content present Insight: Good insight present (Psych) Judgement: Good judgement present (Psych) Results Reviewed Results Reviewed: Date of Service: 10/30/23 FLEXIBLE TRANSORAL UPPER GASTROINTESTINAL ENDOSCOPY UPPER ENDOSCOPY Consent: Indications for the procedure and potential complications of bleeding, perforation, reaction to medications and missed diagnosis were discussed with the patient and informed consent was obtained. Instrument: Olympus GIF H 190 J mid size upper endoscope Monitoring: Vital signs and clinical assessment, continuous EKG monitoring, Pulse oximetry, Carbon Dioxide monitoring and blood pressure monitoring were done throughout the procedure. Procedure: The patient was placed in the left lateral decubitis position and pre-procedure medications were administered and a bite block was placed. The endoscope was inserted into the mouth and advanced under direct vision to the third part of duodenum. A careful inspection was made as the upper endoscope was withdrawn including a retroflexed examination of the proximal stomach; Findings and interventions are described below. Findings: Larynx:normal Esophagus: GE junction at 37? cm, diaphragm hiatus at 37 cm, , irregular Z line, with short segment barretts tongues noted, bx taken from GEJ as well as WATS 3D brushings. Stomach: Patchy gastric erythema with scarring noted . Biopsies were obtained. Grade 2 flap valve on retroflexed examination of the cardia. there was salmon pink tissue islands around the pylorus possibly consistent with intestinal metaplasia, bx taken Duodenum: Normal bulb and descending duodenum, Intervention: Biopsies as noted above, WATS 3d brushings Impression/Findings: gastritis barretts esophagus PLAN: cont taking PPI, maybe consider cutting to OD, can consider adding carafate for few weeks and see if helps sx gastric emptying study if ongoing sx reflux precautions possible repeat EGD 3-5 yrs depending on path and WATS Pathology 10/30/2023 Diagnosis A. Duodenum, biopsy: Duodenal mucosa within normal limits. B. Stomach, pylorus, biopsy: Gastroduodenal transitional mucosa with mild reactive changes; otherwise within normal limits. C. Stomach, random, biopsy: Oxyntic mucosa within normal limits; no Helicobacter organisms seen. D. EG junction, biopsy: - Cardiac-type mucosa with mild chronic inactive inflammation; no intestinal metaplasia seen. - Squamous mucosa within normal limits. E. Esophagus, distal, biopsy: Squamous epithelium within normal limits; no inflammation seen. Date of service: 12/15/2021 FLEXIBLE TRANSORAL UPPER GASTROINTESTINAL ENDOSCOPY UPPER ENDOSCOPY Consent: Indications for the procedure and potential complications of bleeding, perforation, reaction to medications and missed diagnosis were discussed with the patient and informed consent was obtained. Instrument: Olympus GIF H 190 J mid size upper endoscope Monitoring: Vital signs and clinical assessment, continuous EKG monitoring, Pulse oximetry, Carbon Dioxide monitoring and blood pressure monitoring were done throughout the procedure. Procedure: The patient was placed in the left lateral decubitis position and pre-procedure medications were administered and a bite block was placed. The endoscope was inserted into the mouth and advanced under direct vision to the third part of duodenum. A careful inspection was made as the upper endoscope was withdrawn including a retroflexed examination of the proximal stomach; Findings and interventions are described below. Findings: Larynx:normal Esophagus: GE junction at 37? cm, diaphragm hiatus at 33 cm, consistent with 4 cm sliding hiatal hernia, irregular Z line, with short segment barretts tongues noted, as well as distal linear erosive streaks (LA grade C erosive esophagitis) bx taken from GEJ as well as WATS 3D brushings. There was a non obstructive schatzki ring noted. Balloon dilation done to 20 mm at GEJ, minimal resistance felt, UEs dilated and resistance felt at 19 mm. No tears seen. Stomach: Patchy gastric erythema with scarring noted . Biopsies were obtained. Grade 2 flap valve on retroflexed examination of the cardia. Reduced gastric movement noted. Duodenum: Normal bulb and descending duodenum, Intervention: Biopsies as noted above, Ballon dilation, WATS 3d brushings Impression/Findings: sliding hiatal hernia schatzki ring erosive esophagitis gastritis possible gastroparesis barretts esophagus PLAN: confirm taking PPI weight loss consider referral for hernia repair gastric emptying study if she agrees reflux precautions possible repeat EGD 3-5 yrs depending on path and WATS Pathology 12/15/2021 A. Stomach, biopsy: Antral-type and oxyntic mucosa with mild chronic inactive inflammation; no Helicobacter organisms seen. B. GE junction, biopsy: - Manley esophagus with background moderate chronic active inflammation. - No dysplasia seen. - Chronic esophagitis Assessment & Plan Assessment & Plan (1) Acid reflux: Code(s): K21.9 - Gastro-esophageal reflux disease without esophagitis Category: Medical Qualifiers: Esophagitis presence: with esophagitis Esophagitis bleeding: without hemorrhage Qualified Code(s): K21.00 - Gastro-esophageal reflux disease with esophagitis, without bleeding Plan: Well-controlled with omeprazole 40 mg daily. Refills sent as requested. We will re-evaluate saliva swallowing concerns after discontinuation of Rexulti. Education on GERD prevention-Advised against heavy meals. Encouraged small frequent meals VS large meals, remaining upright after meals x 2-3 hours, avoid spicy foods/caffeine/alcohol/known triggers and tight fitting clothes (2) Manley's esophagus: Code(s): K22.70 - Manley's esophagus without dysplasia Category: Medical Qualifiers: Manley's esophagus type: without dysplasia Qualified Code(s): K22.70 - Manley's esophagus without dysplasia Plan: Last EGD October 2023 with recommendations to repeat in 3-5 years. GERD stable and plan as above. (3) Chronic constipation: Code(s): K59.09 - Other constipation Category: Medical Plan: Managed with Linzess. We discussed dose change given frequency of loose stools. However, Yared would like to continue at current dose and work on lifestyle modifications for stool bulking. She understands if loose stools persist may need to decrease the dose. We will re-evaluate at future visit. Reinforced lifestyle modifications to promote regularity and stool bulking: -higher fiber diet -adequate hydration with water -150 minutes of moderate intensity exercise per week Refills sent as requested. (4) Tubular adenoma of colon: Comment: per old note: colonoscopy 2021- adenoma, need records- due 2024 Code(s): D12.6 - Benign neoplasm of colon, unspecified Category: Medical Plan: Colonoscopy completed 2021 by outside facility, still need records. Per previous documentation adenomas noted, due for polyp surveillance screening. She is agreeable to colonoscopy after education. She would prefer a female provider. Reviewed prep and procedure expectations. Plan to stick with standard MiraLax split prep VS extended prep given current stool pattern. Prep Rx'd to preferred pharmacy. She understands to inform us of any added antidiabetes medication prior to procedure. Plan Follow-up after colonoscopy or sooner as needed. Time: I spent a total of 60 minutes on the date of encounter which includes: Preparing to see the patient (reviewed previous documentation, test results and medical history) Performing a medically appropriate exam and/or evaluation Ordering medications, tests, and procedures Documenting clinical information in the health record Medications: New polyethylene glycol 3350 (Miralax) per colonoscopy prep instructions 238 grams PO ONCE 238 grams 0RF bisacodyl per colonoscopy instructions 5 mg PO ONCE 3 tabs 0RF 1 day Refilled linaclotide (Linzess) 290 mcg PO QAM 90 caps 3RF omeprazole 40 mg PO ONCE 30 caps 6RF 30 days Coding Level of Care Code Established Pt Est Pt Level 3 (81794) Patient Type Established Diagnoses Gastroesophageal reflux disease with esophagitis without hemorrhage K21.00 Esophagitis presence: with esophagitis Esophagitis bleeding: without hemorrhage Manley's esophagus without dysplasia K22.70 Manley's esophagus type: without dysplasia Chronic constipation K59.09 Tubular adenoma of colon D12.6
[2024-10-29 08:47] VITALS: BP 120/68; PULSE 83; O2SAT 98; BMI 38.0
--- OUTSIDE RECORDS SUMMARY | 2024-10-29 09:11 | XMS_ITS | Clinical Summary ---
Author Organization [facility] [address] [place] [address] [place] [phone] Phone Care Team Providers Care Office Clin Asst Name Role Phone Rosi Mena MD Primary Care Prov ider Allergies Active Allergy Reactions Criticality Noted Date Comments [place] Hives 07/24/2022 Codeine Hives,Nausea And Vomiting 10/23/2012 Iodinated Contrast Media Hives High 01/13/2016 Pt stated that back in 1992 she broke out in hives after iv contrast inj. No sob. Joxpqfi-Bvg-Ynb Reductase Inhibitors Pain Low 02/20/2024 Myalgia and joint pain [place] Hives High 07/24/2022 Medications brexpiprazole (Rexulti) 2 mg tablet Take 1 tablet (2 mg total) by mouth 1 (one) time each day. 4 Active propranoloL (INDERAL) 10 mg tablet 4 Active acetaminophen (TYLENOL ORAL) Take by mouth. Active linaCLOtide (Linzess) 290 mcg capsule Take 1 tablet by mouth 1 (one) time each day. 2 Active pregabalin (LYRICA) 225 mg capsule Take 1 capsule (225 mg total) by mouth 2 (two) times a day. Active ibuprofen (ADVIL,MOTRIN) 800 mg tablet Take 1 tablet (800 mg total) by mouth every 8 (eight) hours if needed. 2 Active omeprazole (PriLOSEC) [address] capsule Take 1 capsule (40 mg total) by mouth 1 (one) time each day. Active FREESTYLE LANCETS MISC Use to check blood sugar each day fasting. Active glucose blood test strip Use to check blood sugar each day fasting. R73.03 Active SUMAtriptan (IMITREX) 25 mg tablet Take one pill at onset of migraine headache. May repeat dose once after 2 hours, if needed. NTE 2 doses in 24 hours 3 Active mirtazapine (REMERON) 30 mg tablet Take 1 tablet (30 mg total) by mouth. at bedtime 4 Active FreeStyle Lite Meter monitoring kit USE TO CHECK BLOOD SUGAR EACH DAILY FASTING 1 each 4 Active simvastatin (ZOCOR) 10 mg tablet Take 1 tablet (10 mg total) by mouth at bedtime. 90 each 1 5 03/25/20 25 Active diclofenac (Voltaren Arthritis Pain) 1 % topical gel Apply 4 g topically 2 (two) times a day. 240 g 1 5 12/13/19 25 Active Active Problems Problem Noted Date Diagnosed Date Type 2 diabetes mellitus ([facility] V24, [facility] V 28) 04/21/2024 Assessment & Plan (09/26/2024 10:08 AM EDT): Orders: Hemoglobin A1c; Future Assessment & Plan (05/30/2024 9:42 AM EST): A1c is 6.5. Patient currently not on medications. Patient will start yearly Podiatric and Ophthomologic evaluations. Will consider Angiotensin Converting Enzyme Inhibitor for renal protection. Pending to start Mounjaro. Patient will follow up in 3 months Orders: Ambulatory referral to Podiatry; Future Comprehensive metabolic panel; Future Hemoglobin A1c; Future Lipid panel with reflex to direct LDL; Future Severe obesity (BMI 35.0-39. 9) with comorbidity ([facility] V24, [facility] V28) 04/01/2021 Assessment & Plan (09/26/2024 10:08 AM EDT): Assessment & Plan (05/30/2024 9:42 AM EST): BMI 37.3. Weight loss strategies were discussed with the patient today. Already evaluated by weight management. Pending to start Mounjaro. Chronic constipation 03/21/2021 Overview (04/21/2024): [facility] gastroenterology Abnormal stress test 08/06/2019 Overview (04/21/2024): 07/2019 PVC evaluation, reassuring cardiac catheterization Hyperlipemia 07/04/2019 Assessment & Plan (09/26/2024 10:08 AM EDT): Assessment & Plan (05/30/2024 9:42 AM EST): Given the patients cardiac risk profile, the patient requires an LDL cholesterol of less than 70, above target. I have instructed the patient on the principles of a low cholesterol diet and the importance of regular exercise. We will start statin Simvastatin low dose. She has not tolerated Atorvastatin before for headaches. Orders: Comprehensive metabolic panel; Future Hemoglobin A1c; Future Lipid panel with reflex to direct LDL; Future Urinary incontinence 08/23/2017 Overview (04/21/2024): PVU, more recent urogyn eval 07/2018 trying medication & lifestyle changes IBS (irritable bowel syndrome) 06/11/2017 Closed fracture of left fibula and tibia 017 Overview (04/21/2024): Surgical repair with Dr. Engle at [facility] Chronic low back pain 06/06/2017 Overview (04/21/2024): Follows with rheumatology at [facility], Dr. Bam Mon; [facility] pain management Assessment & Plan (05/30/2024 9:42 AM EST): Exacerbation after recent twisting movement. Will start PT. Referral was placed. Orders: Ambulatory referral to Physical Therapy and Athletic Training; Future Nephrolithiasis 06/06/2017 Ovarian cyst 06/06/2017 Scoliosis 06/06/2017 Restless leg syndrome 10/08/2013 Pulmonary nodule, right 10/03/2013 Overview (04/21/2024): Incidentally seen on abd ct, emphysematous changes Annual chest CTs, due 08/2019; stable 12/2019, no further follow-up suggested Unspecified abnormal cytolog ical findings in specimens from cervix uteri 10/02/2013 Fibromyalgia 07/23/2013 Overview (04/21/2024): [facility] rheumatology, on Lyrica; failed trials of gabapentin, duloxetine, amitriptyline, Savella, cyclobenzaprine Smoking 01/20/2013 Anxiety 10/23/2012 Encounters Date Type Department Care Team Description 10/13/2024 9:00 AM EDT Consult Orthopedic Surgery - [address] [phone] Chaim Venegas DPM Diabetic mononeuropathy simplex ([facility] V24, [facility] V28) (Primary Dx); Type 2 diabetes mellitus without complication, without long-term current use of insulin ([facility] V24, [facility] V28); Plantar fasciitis; Dermatophytosis of nail; Pain in toe of right foot; Pain in toe of left foot; Acquired hammer toe of right foot; Hammer toe of left foot; Ingrowing nail 09/26/2024 9:45 AM EDT Office Visit Adult Medicine [address] [phone] Rosi Mena MD Type 2 diabetes mellitus without complication, without long-term current use of insulin ([facility] V24, [facility] V28) (Primary Dx); Mixed hyperlipidemia; Severe obesity (BMI 35.0-39.9) with comorbidity ([facility] V24, [facility] V28); Screening for depression; Encounter for screening involving social determinants of health (SDoH) 07/31/2024 Telephone Adult Medicine [address] [phone] Rosi Mena MD from Last 3 Months Immunizations Name Administration Dates Next Due COVID-19 (Pfizer/Comirnaty) 12yo and older 04/22 Influenza Quadravalent, MDCK , 0.5ml, preservative free (Flucelvax) 6mo and older 04/03/2023,04/01/2021,05/15/2019 Influenza trivalent, 0.5mL, preservative free (Fluarix; FluLaval; Fluzone) ages 6mo and older (Afluria) 3 years and older 05/18/2016 Influenza trivalent, with pr eservative (Fluzone; Afluria) 6mo and older 04/22/2024,04/29/2018 Influenza, Unspecified 07/25/2022,05/23/2020 Moderna (age 6mo & older) Bi valent, COVID-19, 0.5 mL or 0.25 mL dosage 08/07/2022 Moderna SARS-CoV-2 COVID-19, mRNA, LNP-S, preservative free 04/23/2023,07/25/2022 Tdap Tetanus diptheria acell ular pertussis (Boostrix; Adacel) 7yo and older 06/21/2016,01/20/2013 Zoster recombinant (Shingrix ) 19yo and older 11/10/2020,10/18/2020 Surgical History Surgery Date Site/Laterality Comments SECTION PROCEDURE: HISTORICAL ; COMMENT: x 2 TUBAL LIGATION PROCEDURE: HISTORICAL TUBAL LIGATION ANKLE SURGERY Left PROCEDURE: HISTORICAL ANKLE SURGERY OTHER SURGICAL HISTORY 2013 PROCEDURE: CERVICAL LEEP CONE BIOPSY [facility] PATHOLOGY EX COLONOSCOPY 10/17/2018 PROCEDURE: HISTORICAL COLONOSCOPY; COMMENT: Dr. Figueredo; 2 polyps OTHER SURGICAL HISTORY 03/26/2019 PROCEDURE: [place] REPAIR RECTOCELE SEPARATE PROCEDURE; COMMENT: and urethral sling; Dr. Cobos Medical History Medical History Date Comments Anxiety DX:Anxiety Constipation DX:Constipation Type 2 diabetes mellitus (CM S/HCC V24, CMS/HCC V28) 02/25/2024 DX:Type 2 diabetes mellitus (HCC) Family History Medical History Relation Name Comments Diabetes Daughter Breast cancer Mother BRCA negative; recurrent Emphysema Mother Cervical cancer Sister Colon cancer Neg Hx Ovarian cancer Neg Hx Relation Name Status Comments Daughter Father Alive dm Mother Alive dm, breast canc er, depression Sister Alive Social History Tobacco Use Types Packs/Day Years Used Date Smoking Tobacco: Former Smokeless Tobacco: Never Tobacco Cessation:Counseling Given: Not Answered Alcohol Use Standard Drinks/Week Comments No 0 (1 standard drink = 0.6 oz pur e alcohol) Housing Instability Answer Date Recorde d Are you worried that in the next 2 months you may not have stable housing? No 09/25/2024 Access to Healthcare Answer Date Record ed Within the last 3 months, ho w many times did you visit the emergency department for your medical care? 0 09/25/2024 Health Literacy Answer Date Recorded How often do you need to hav e someone help you when you read instructions, pamphlets, or other written material from your doctor or pharmacy? Sometimes 09/25/2024 Caregiver: How often do you need to have someone help you when you read instructions, pamphlets, or other written material from your doctor or pharmacy? Not on file 09/25/2024 Financial Risk Answer Date Recorded How hard is it for you to pa y for the very basics like food, housing, medical care, and air conditioning / heating? Somewhat hard 09/25/2024 Transportation Answer Date Recorded Has the lack of transportati on kept you from meetings, work, or from getting things needed for daily living? No Has the lack of transportati on kept you from medical appointments or from getting medications? No 09/25/2024 Social Isolation Answer Date Recorded How often do you feel lonely or isolated from those around you? Sometimes 09/25/2024 Food Risk Answer Date Recorded Within the past 12 months we worried whether our food would run out before we got money to buy more. Never true 09/25/2024 Within the past 12 months th e food we bought just didn't last and we didn't have money to get more. Never true 09/25/2024 Dependent Care Answer Date Recorded Do you need help finding or paying for care for your loved ones. For example, salesperson children's shoes or elderly care for an older adult? No 09/25/2024 Education Answer Date Recorded Do you think completing more education or training, like finishing a GED, going to college, or learning a trade, would be helpful for you? No 09/25/2024 Employment and Income Answer Date Recor ded During the last four weeks, have you been actively looking for work? No 09/25/2024 Living Situation Answer Date Recorded What is your living situation? 0 09/25/2024 Comments No Sex and Gender Information Value Date Recorded Sex Assigned at Not on file Legal Sex Female 7:09 PM EST Gender Identity Not on file Sexual Orientation Not on file Obstetrics History Last Filed Vital Signs Vital Sign Reading Time Taken Comments Blood Pressure 108/67 09/26/2024 9:44 AM EDT Pulse 82 09/26/2024 9:44 AM EDT Temperature 35.8 ??C (96.4 ??F) 09/26/2024 9:44 AM ED T Respiratory Rate 13 09/26/2024 9:44 AM EDT Oxygen Saturation - - Inhaled Oxygen Concentration - - Weight 95.4 kg (210 lb 6.4 oz) 09/26/2024 9:44 A M EDT Height 154.9 cm (5' 1 ) 09/26/2024 9:44 AM EDT Body Mass Index 39.75 09/26/2024 9:44 AM EDT Plan of Treatment Upcoming Encounters Date Type Department Care Team (Late st Contact Info) Description 11/17/2024 8:30 AM EDT Office Visit Orthopedic Surgery - [place] [phone] [phone] Chaim Venegas DPM [address] [phone] 11/25/2024 9:10 AM EDT Appointment Radiology Department - [address] [phone] 01/07/2025 3:00 PM EDT Office Visit Bariatric Surgery - [place] [address] [phone] Shannon Lawrence PA [address] [address] 01/27/2025 8:45 AM EDT Office Visit Adult Medicine [address] [phone] Rosi Mena MD [address] [place] [phone] Health Maintenance Due Date Last Done Comments Diabetes: Annual Foot Exam 1976 Diabetes: Annual Retina Eye Exam 1976 Hepatitis B Vaccines (1 of 3 - 19+ 3-dose series) 1985 Pneumococcal Vaccine: 50+ Years (1 of 2 - PCV) 1985 Pneumococcal Vaccine: Pediatrics (0 to 5 Years) and At-Risk Patients (6 to 64 Years) (1 of 2 - PCV) 1985 Zoster Vaccines (2 of 2) 01/05/2021 11/10/2020, 04/0 11/2020 HIV Screening 06/24/2022 Medicare Annual Wellness Visit 06/24/2022 Cervical Cancer Screening: HPV 08/15/2024 08/15/2019 Diabetes: Annual Urine Albumin-Creatinine Ratio (uACR) 02/19/2025 02/20/2024 Diabetes: Blood Sugar Control Test (HGBA1C) 03/02/2025 09/02/2024, 02/20/2024, 02/20/2024, Additional history exists Diabetes: Annual GFR (Glomerular Filtration Rate) 09/02/2025 09/02/2024, 02/20/2024, 02/20/2024, Additional history exists Depression Screening 09/25/2025 09/25/2024, 11/28/19 24 Social Influencers of Health Screening 09/25/2025 09/25/2024, 11/28/2023 Breast Cancer Screening 12/05/2025 12/06/19 24, 12/06/2023, 11/08/2023 DTaP,Tdap,and Td Vaccines (3 - Td or Tdap) 06/21/2026 06/21/2016, 01/20/2013 Colorectal Cancer Screening: Colonoscopy 10/18/2028 10/18/2018 Cholesterol Screening (Lipid Panel) 09/02/2029 09/02/2024, 02/20/2024, 02/20/2024, Additional history exists Hepatitis C Screening Completed 06/16/2020 COVID-19 Vaccine Completed 04/22/2024, 03/2023, 08/07/2022, Additional history exists Influenza Vaccine Completed 04/22/2024, , 07/25/2022, Additional history exists HIB Vaccines Aged Out No longer eligi ble based on patient's age to complete this topic HPV Vaccines Aged Out No longer eligi ble based on patient's age to complete this topic Hepatitis A Vaccines Aged Out No long er eligible based on patient's age to complete this topic IPV Vaccines Aged Out No longer eligi ble based on patient's age to complete this topic MMR Vaccines Aged Out No longer eligi ble based on patient's age to complete this topic Meningococcal ACWY Vaccine Aged Out N o longer eligible based on patient's age to complete this topic Meningococcal B Vaccine Aged Out No l onger eligible based on patient's age to complete this topic RSV Immunization Patients Under 20 months Aged Out No longer eligible based on patient's age to complete this topic Varicella Vaccines Aged Out No longer eligible based on patient's age to complete this topic Procedures Procedure Name Priority Date/Time Associated Diagnosis Comments COMPREHENSIVE METABOLIC PANEL Routine 09/02/2024 8:38 AM EST Type 2 diabetes mellitus without complication, without long-term current use of insulin (CMS/HCC V24, CMS/[facility] V28) Mixed hyperlipidemia HEMOGLOBIN A1C Routine 09/02/2024 8:38 AM EST Type 2 diabetes mellitus without complication, without long-term current use of insulin (CMS/HCC V24, CMS/HCC V28) Mixed hyperlipidemia LIPID PANEL WITH REFLEX TO DIRECT LDL Routine 09/02/2024 8:38 AM EST Type 2 diabetes mellitus without complication, without long-term current use of insulin (CMS/HCC V24, CMS/[facility] V28) Mixed hyperlipidemia URINE ALBUMIN CREATININE RATIO Routine 02/20/2024 DIAGNOSTIC MAMMOGRAPHY INCLUDING CAD BILATERAL Routine 12/06/2023 10:02 AM EDT Other abnormal and inconclusive findings on diagnostic imaging of breast DEPRESSION SCREENING Routine 11/28/2023 HEPATITIS C SCREENING Routine 06/16/2020 HPV Routine 08/15/2019 COLONOSCOPY Routine 10/18/2018 from Last 3 Months or Most Recently Relevant to Health Maintenance Results * (ABNORMAL) Lipid panel with reflex to direct LDL (09/02/2024 8:38 AM EST) Cholesterol 183 0 - 200 mg/dL LAB CHEMISTRY METHOD 09/02/2024 11:02 AM [facility] Triglycerides 79 0 - 150 mg/dL LAB CHEMISTRY METHOD 09/02/2024 11:02 AM [facility] HDL 52 >=40 mg/dL LAB CHEMISTRY METHOD 09/02/2024 11:02 AM [facility] LDL Calculated 115(H) 0 - 100 mg/dL LAB CHEMISTRY METHOD 09/02/2024 11:02 AM [facility] VLDL Cholesterol Rodger 15.8 mg/dL LAB CHEMISTRY METHOD 09/02/2024 11:02 AM [facility] Non HDL Chol. (LDL+VLDL) 131 <145 mg/dL LAB CHEMISTRY METHOD 09/02/2024 11:02 AM [facility] Chol/HDL Ratio 3.5 0.0 - 4.4 LAB CHEMISTRY METHOD 09/02/2024 11:02 AM [facility] Blood Venous blood specimen / Unknown Venipuncture / Unknown 09/02/2024 8:38 AM EST 09/02/2024 8:38 AM EST us Rosi Mena MD LAB BLOOD ORDERABL ES Final Result [facility] [address] [place] [address], * (ABNORMAL) Hemoglobin A1c (09/02/2024 8:38 AM EST) Hemoglobin A1C 6.8(H) <6.5 % LAB CHEMISTRY METHOD 09/02/2024 12:38 PM EST [facility] Mean Bld Glu Estim. 148 mg/dL LAB CHEMISTRY METHOD 09/02/2024 12:38 PM [facility] Blood Venous blood specimen / Unknown Venipuncture / Unknown 09/02/2024 8:38 AM EST 09/02/2024 8:38 AM EST us Rosi Mena MD LAB BLOOD ORDERABL ES Final Result [facility] [address] [place] [address], [place] [phone] * (ABNORMAL) Comprehensive metabolic panel (09/02/2024 8:38 AM EST) Sodium 139 133 - 145 mmol/L LAB CHEMISTRY METHOD 09/02/2024 11:02 AM [facility] Potassium 4.7 3.5 - 5.5 mmol/L LAB CHEMISTRY METHOD 09/02/2024 11:02 AM [facility] Chloride 107 96 - 110 mmol/L LAB CHEMISTRY METHOD 09/02/2024 11:02 AM [facility] CO2 28 21 - 32 mmol/L LAB CHEMISTRY METHOD 09/02/2024 11:02 AM [facility] Anion Gap 4 3 - 11 LAB CHEMISTRY METHOD 09/02/2024 11:02 AM [facility] Glucose 131(H) 70 - 100 mg/dL LAB CHEMISTRY METHOD 09/02/2024 11:02 AM [facility] BUN 14 5 - 25 mg/dL LAB CHEMISTRY METHOD 09/02/2024 11:02 AM [facility] Creatinine 0.79 0.50 - 1.10 mg/dL LAB CHEMISTRY METHOD 09/02/2024 11:02 AM [facility] eGFR 87 >=60 mL/min/1. 73m2 LAB CHEMISTRY METHOD 09/02/2024 11:02 AM [facility] Comment:Calculation based on the??Chronic Kidney Disease Epidemiology Collaboration (CKD-EPI) equation refit??without adjustment for race. BUN/Creatinine Ratio 17.7 LAB CHEMISTRY METHOD 09/02/2024 11:02 AM [facility] Calcium 9.8 8.5 - 10.5 mg/dL LAB CHEMISTRY METHOD 09/02/2024 11:02 AM [facility] AST (SGOT) 8(L) 10 - 42 unit/L LAB CHEMISTRY METHOD 09/02/2024 11:02 AM [facility] ALT (SGPT) 23 10 - 60 unit/L LAB CHEMISTRY METHOD 09/02/2024 11:02 AM [facility] Alkaline Phosphatase 88 42 - 121 unit/L LAB CHEMISTRY METHOD 09/02/2024 11:02 AM [facility] Total Protein 8.1(H) 6.0 - 8.0 g/dL LAB CHEMISTRY METHOD 09/02/2024 11:02 AM [facility] Albumin 4.1 3.2 - 5.0 g/dL LAB CHEMISTRY METHOD 09/02/2024 11:02 AM [facility] Total Bilirubin 0.6 0.0 - 1.4 mg/dL LAB CHEMISTRY METHOD 09/02/2024 11:02 AM [facility] Blood Venous blood specimen / Unknown Venipuncture / Unknown 09/02/2024 8:38 AM EST 09/02/2024 8:38 AM EST us Rosi Mena MD LAB BLOOD ORDERABL ES Final Result [facility] [address] [place] [address], [place] [phone] * Urine Albumin Creatinine Ratio (02/20/2024) Urine Albumin Creatinine Ratio abstracted us Historical Provider HEALTH MAINTENANCE Final Result * DIAGNOSTIC MAMMOGRAPHY INCLUDING CAD BILATERAL (12/06/2023 10:02 AM EDT) Anatomical Region Laterality Modality Mammography 11/12/2023 9:28 AM EDT Narrative 12/06/2023 10:11 AM EDT This is a summary report. The complete report is available in the patient's medical record. If you cannot access the medical record, please contact the sending organization for a detailed fax or copy. History: Callback from screening for bilateral foot findings: Right: Focal asymmetry in the upper outer quadrant middle depth Left: Approximately 0.6 cm focal asymmetry in the upper breast Studies: 1. ??Bilateral digital diagnostic mammography with tomosynthesis and CAD 2. ??Targeted ultrasound of the left breast Technique: Bilateral digital diagnostic mammography is obtained and read in conjunction with computer aided detection. ??Tomosynthesis as well as 2D C-View imaging were obtained. ??Spot compression tomosynthesis images were also obtained. Comparison: Comparison made to multiple prior, most recent November 08, 2023, and most remote May 14, 2006. Breast composition: There are scattered areas of fibroglandular density. Right breast: Previously suggested focal asymmetry in the upper outer quadrant is pliable with spot compression. ??On today's images, the morphology of the local parenchyma is similar to multiple prior studies as far back as 2015. ??Findings likely represented overlapping fibroglandular breast tissue. Left breast: An approximately 0.7-0.8 cm mass persists in the upper breast at approximately 9 to 10 cm from the nipple (ML 90 degrees 42/83 and spot CC 37/80). Targeted ultrasound of the left breast was performed at the location of the mammographic finding. ??The survey shows a 0.9 cm x 0.2 cm x 0.7 cm flat simple cyst at the 12 o'clock position at 6 cm from the nipple that correlates with the mammographic finding. ??In the immediate vicinity, additional 0.5 x 0.3 x 0.4 cm simple cyst was identified at 12 o'clock position 6 cm from the nipple. ??No internal vascularity demonstrated with color Doppler evaluation in either of the cysts. IMPRESSION: Impression: Right breast: Negative, no specific mammographic evidence of malignancy. ??Normal interval follow-up is recommended in 12 months. Left breast: Benign, no specific evidence of malignancy. ??Normal interval follow-up is recommended in 12 months. BI-RADS: Category 2: Benign Findings and recommendations were discussed with the patient at completion of the studies. Procedure Note Bubba Ramirez MD - 03/03/2024 This is a summary report. The complete report is available in thepatient's medical record. If you cannot access the medical record, pleasecontact the sending organization for a detailed fax or copy. History: Callback from screening for bilateral foot findings: Right: Focal asymmetry in the upper outer quadrant middle depth Left: Approximately 0.6 cm focal asymmetry in the upper breast Studies: 1. Bilateral digital diagnostic mammography with tomosynthesis and CAD 2. Targeted ultrasound of the left breast Technique: Bilateral digital diagnostic mammography is obtained and readin conjunction with computer aided detection. Tomosynthesis as well as 2DC-View imaging were obtained. Spot compression tomosynthesis images werealso obtained. Comparison: Comparison made to multiple prior, most recent November 08, 2023,and most remote May 14, 2006. Breast composition: There are scattered areas of fibroglandular density. Right breast: Previously suggested focal asymmetry in the upper outerquadrant is pliable with spot compression. On today's images, themorphology of the local parenchyma is similar to multiple prior studies asfar back as 2015. Findings likely represented overlapping fibroglandularbreast tissue. Left breast: An approximately 0.7-0.8 cm mass persists in the upper breastat approximately 9 to 10 cm from the nipple (ML 90 degrees 42/83 and spotCC 37/80). Targeted ultrasound of the left breast was performed at the location ofthe mammographic finding. The survey shows a 0.9 cm x 0.2 cm x 0.7 cmflat simple cyst at the 12 o'clock position at 6 cm from the nipple thatcorrelates with the mammographic finding. In the immediate vicinity,additional 0.5 x 0.3 x 0.4 cm simple cyst was identified at 12 o'clockposition 6 cm from the nipple. No internal vascularity demonstrated withcolor Doppler evaluation in either of the cysts. IMPRESSION: Impression: Right breast: Negative, no specific mammographic evidence of malignancy.Normal interval follow-up is recommended in 12 months. Left breast: Benign, no specific evidence of malignancy. Normal intervalfollow- up is recommended in 12 months. BI-RADS: Category 2: Benign Findings and recommendations were discussed with the patient at completionof the studies. Rosi Mena MD IMG BI PROCEDURES Final Result * Depression Screening (11/28/2023) Pathologist [facility] Depression Screening abstracted [facility] HEALTH MAINTENANCE Final Result * Hepatitis C Screening (06/16/2020) [facility] Hepatitis C Screening abstracted Result [facility] HEALTH MAINTENANCE Final Result * Cervical Cancer Screening: HPV (08/15/2019) [facility] Cervical Cancer Screening: HPV abstracted, negative Result [facility] HEALTH MAINTENANCE Final Result * Colonoscopy (10/18/2018) [facility] Colonoscopy abstracted, no interpretation Anatomical Region Laterality Modality Other [facility] HEALTH MAINTENANCE Final Result from Last 3 Months or Most Recently Relevant to Health Maintenance Insurance MEDICARE [place] - [place] Care Teams Office Clin Asst Relationship Specialty Start Date End Date Rosi Mena MD [address] [place] [id number] PCP - General Internal Medicine 05/30/24
== END 2024-10-29 10:16 | disposition home or self-care (01) ==
PROVIDERS: PCP Internal Medicine; Visit Provider Nurse Practitioner Family
DX: K21.00 Gastro-esophageal reflux disease with esophagitis, without bleeding (principal); K22.70 Barrett's esophagus without dysplasia; K59.09 Other constipation; D12.6 Benign neoplasm of colon, unspecified
CPT/HCPCS: 99215

== ENCOUNTER → 2024-10-29 08:45 | Outpatient (BNVA) | payer MEDICARE, MEDICAID, SELFPAY | PROVIDERS: PCP Internal Medicine; Visit Provider Nurse Practitioner Family | DX: K21.00 Gastro-esophageal reflux disease with esophagitis, without bleeding (principal); K22.70 Barrett's esophagus without dysplasia; K59.09 Other constipation; D12.6 Benign neoplasm of colon, unspecified | CPT/HCPCS: 99212 ==

== ENCOUNTER 2025-01-21 12:42 | Outpatient (AMB) | payer MEDICARE, MEDICAID, SELFPAY ==
[2025-01-21 13:14] VITALS: BP 130/74; PULSE 80; O2SAT 97; BMI 37.7
--- NOTE | 2025-01-21 13:14 | A.OFFVIS_ITS ---
Vital Signs 01/21/25 13:14 Height 5 ft 2 in Weight 206 lb 5.643 oz BMI 37.7 BP 130/74 Blood Pressure Location Lt brachial Position Sitting Pulse 80 Pulse Source Pulse Oximeter Pulse Oximetry (%) 97 Oxygen Delivery Method Room Air Intake Visit Reasons: FMS Intake Note: Patient last seen by Doctor Estrellita Cox on 09/25/23. Presents for FMS follow up. Patient complains of pain in both legs for months, feels like RLS, then feels painful. Allergies codeine Adverse Reaction (Severe, Verified 01/21/25 13:17) Nausea quan flavors Allergy (Intermediate, Uncoded 01/21/25 13:17) hives contrast dye Allergy (Intermediate, Uncoded 01/21/25 13:17) vomiting ,rash Medication List - Last Reconciled 01/21/25 by Estrellita Cox MD brexpiprazole (Rexulti) 1 mg PO DAILY linaclotide (Linzess) 290 mcg PO QAM lorazepam 1.5 mg PO DAILY PRN multivitamin 1 tab PO DAILY omeprazole 40 mg PO ONCE 30 days pregabalin 225 mg PO BID propranolol 10 mg PO DAILY simvastatin 10 mg PO BEDTIME sumatriptan succinate 25 mg PO DAILY PRN trazodone 100 mg PO BEDTIME PRN HPI Comments Details: Patient is a 59-year-old female with GERD complicated by Manley's esophagus, polyarticular osteoarthritis (especially involving the cervical and lumbar spine) and fibromyalgia here today for follow up Interval History: Patient last seen 09/25/[address] Perea - complained of bilateral thigh pain, and back pain - previously received injections from pain management but they no longer helped. Last injection for years ago Today, - Patient complains of leg pain and sensitivity - Feels like the pain comes from her back all the way down the legs - Takes motrin and lyrica and they both don't help Rheumatologic History: Fibromyalgia - Tried flexeril in the past but did not help Current Rheumatology Medication(s): Lyrica 225mg bid [facility] Medical History (Updated 10/30/24 @ 12:23 by Mirna Stout CNP) COPD (chronic obstructive pulmonary disease) Smoker Arthritis Anxiety CAD (coronary artery disease) Rectocele Tubular adenoma of colon Fibromyalgia Surgical History History of esophagogastroduodenoscopy (EGD) History of surgery on lower extremity History of genitourinary surgery History of cardiac catheterization Hx of colonoscopy Hx of section Family History Father Diabetes Mother Breast cancer Rheumatoid arthritis Social History Household Members: Significant Other Alcohol intake: never Patient Tobacco Use Status: Former Tobacco user Tobacco use type: Cigarette Cigarette Packs Per Day: 1 Cigarettes Per Day: 20.0 Years Smoked: 24 Current occupational status: unemployed Review of Systems Const Details: Review of Systems Constitutional: Denies fever, chills, weight loss ENT: Denies vision changes, eye pain or eye redness, dental caries, dry mouth GI: Denies nausea, vomiting, diarrhea, abdominal pain, change in BM Pulm: Denies SOB, ZIMMER, hemoptysis, wheezing Cards: Denies chest pain, palpitations Skin: Denies Raynaud's, rash, nail changes, photosensitivity, [employer]: Denies headaches, weakness, paresthesias, recurrent falls MSK: as per HPI All other systems reviewed and are unremarkable except noted above Physical Exam Vital Signs: Last Vital Signs Pulse 80 01/21/25 13:14 BP 130/74 01/21/25 13:14 Pulse Ox 97 01/21/25 13:14 Oxygen Delivery Method Room Air 01/21/25 13:14 BMI result Body Mass Index 37.7 Vital signs reviewed Physical Examination CONSTITUITIONAL Patient alert and cooperative. Well appearing and in no apparent painful distress HEENT Conjunctiva and sclera clear. No lymphadenopathy. CHEST/RESPIRATORY SYSTEM Normal respiratory effort and able to speak in complete sentences. Clear to auscultation bilaterally. No crackles, rales, rhonchi, wheezes heard. CARDIAC SYSTEM Regular rate and rhythm. S1 and S2 heard no murmurs. Radial pulses intact bilaterally MSK Hands * Right Hand: Able to make a fist. No swelling or tenderness to palpation of these joints. No deformities noted. * Left Hand: Able to make a fist. No swelling or tenderness to palpation of these joints. No deformities noted. * Hands look puffy Wrists * Right Wrist: Full ROM. 70 degrees of wrist flexion, 80 degrees of wrist extension. No swelling or TTP * Left Wrist: Full ROM. 70 degrees of wrist flexion, 80 degrees of wrist extension. No swelling or TTP Elbows * Right Elbow: Full ROM. No swelling or TTP. No TTP of the medial and lateral epicondyles * Left Elbow: Full ROM. No swelling or TTP. No TTP of the medial and lateral epicondyles Shoulders * Right shoulder: Full ROM. No swelling noted. No TTP of the AC joint, subacromial bursa or posterior shoulder * Left shoulder: Full ROM. No swelling noted. No TTP of the AC joint, subacromial bursa or posterior shoulder Hip bursa: Tenderness to palpation bilaterally Knees * Right knee: Full ROM. No swelling noted. No TTP of the knee joint lie * Left knee: Full ROM. No swelling noted. No TTP of the knee joint lie * TTP of the pes anserine bursa Ankles * Right ankle: Good ankle dorsiflexion and plantar flexion. No swelling. No TTP of the ankle joint * Left ankle: Good ankle dorsiflexion and plantar flexion. No swelling. No TTP of the ankle joint Feet * Right foot: Negative squeeze test * Left foot: Negative squeeze test Tender points? * Tenderness to palpation of the bilateral trapezius, supraspinatus, anterior costochondral junctions, bilateral suboccipital muscle insertions Positive straight leg raise on the right SKIN No rashes Results Reviewed Results Reviewed: XR L spine 11/2021 FINDINGS: Normal vertebral body alignment. The lumbar lordosis is maintained. No significant subluxation with flexion or extension. No loss of vertebral body height. Minimal multilevel loss of intervertebral disc height with endplate osseous, most prominent at L1-L2. No lytic or blastic osseous lesion. No abnormal soft tissue calcification. IMPRESSION: No acute fracture or subluxation. No change in anatomic alignment with flexion or extension. Mild multilevel degenerative disc disease, most prominent at L1-L2, slightly progressed when compared to the prior radiographs. Assessment & Plan Assessment & Plan (1) Fibromyalgia: Code(s): M79.7 - Fibromyalgia Category: Medical Plan: #Fibromyalgia Patient is a 59-year-old female with fibromyalgia here today for follow up. Continues to have the classic fibromyalgia tender points. Has tried gabapentin, amitriptyline, Flexeril without improvement. Currently on Lyrica which helps some but still has persistent leg pain. Exam had a positive straight leg raise on the right. I think she would benefit from a reconsult of pain management maybe they can re-evaluate her for injections which did help her in the past. 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
--- OUTSIDE RECORDS SUMMARY | 2025-01-21 13:34 | XMS_ITS | Clinical Summary ---
Author Organization [facility] [address] [place] [address] [place] [phone] Phone Care Team Providers Care Web Designer Developer Name Role Phone Rosi Mena MD Primary Care Prov ider Allergies Active Allergy Reactions Criticality Noted Date Comments [place] Hives 07/24/2022 Codeine Hives,Nausea And Vomiting 10/23/2012 Iodinated Contrast Media Hives High 01/13/2016 Pt stated that back in 1992 she broke out in hives after iv contrast inj. No sob. Sbjoutf-Ekt-Txp Reductase Inhibitors Pain Low 02/20/2024 Myalgia and joint pain [place] Hives High 07/24/2022 Medications brexpiprazole (Rexulti) 2 mg tablet Take 1 tablet (2 mg total) by mouth 1 (one) time each day. 11/15/2023 Active propranoloL (INDERAL) 10 mg tablet 10/18/2023 Active acetaminophen (TYLENOL ORAL) Take by mouth. Active linaCLOtide (Linzess) 290 mcg capsule Take 1 tablet by mouth 1 (one) time each day. 06/30/2022 Active pregabalin (LYRICA) 225 mg capsule Take 1 capsule (225 mg total) by mouth 2 (two) times a day. Active ibuprofen (ADVIL,MOTRIN) 800 mg tablet Take 1 tablet (800 mg total) by mouth every 8 (eight) hours if needed. 03/21/2022 Active omeprazole (PriLOSEC) [address] capsule [...] needed. NTE 2 doses in 24 hours 01/09/2023 Active mirtazapine (REMERON) 30 mg tablet Take 1 tablet (30 mg total) by mouth. at bedtime 05/26/2024 Active FreeStyle Lite Meter monitoring kit USE TO CHECK BLOOD SUGAR EACH DAILY FASTING 1 each 06/18/2024 Active simvastatin (ZOCOR) 10 mg tablet Take 1 tablet (10 mg total) by mouth at bedtime. 90 each 1 09/26/2024 03/25/20 25 Active Active Problems Problem Noted Date Diagnosed Date Type 2 diabetes mellitus ([facility] V24, [facility] V 28) 04/21/2024 Assessment & Plan [...] Severe obesity (BMI 35.0-39. 9) with comorbidity ([facility] V24, [facility] V28) 04/01/2021 Assessment & Plan (09/26/2024 10:08 AM EDT): Assessment & Plan (05/30/2024 9:42 AM EST): BMI 37.3. Weight loss strategies were discussed with the patient today. Already evaluated by weight management. Pending to start Mounjaro. Chronic constipation 03/21/2021 Overview (04/21/2024): [facility] gastroenterology Abnormal stress test 08/06/2019 Overview (04/21/2024): [...] (04/21/2024): Surgical repair with Dr. Engle at [facility] Chronic low back pain 06/06/2017 Overview (04/21/2024): Follows with rheumatology at [facility], Dr. Bam Mon; [facility] pain management Assessment & Plan (05/30/2024 [...] cervix uteri 10/02/2013 Fibromyalgia 07/23/2013 Overview (04/21/2024): [facility] rheumatology, on Lyrica; failed trials of gabapentin, duloxetine, amitriptyline, Savella, cyclobenzaprine Smoking 01/20/2013 Anxiety 10/23/2012 Encounters Date Type Department Care Team Description 12/17/2024 10:36 AM EDT - 12/17/2024 11:59 PM EDT Hospital Encounter Radiology Department - [address] [phone] Abnormal mammogram Discharge Disposition: Home or Self Care 12/17/2024 10:36 AM EDT - 12/17/2024 11:59 PM EDT Hospital Encounter Radiology Department - [address] [phone] Abnormal mammogram Discharge Disposition: Home or Self Care 12/12/2024 8:23 AM EDT - 12/12/2024 11:59 PM EDT Hospital Encounter Radiology Department - [address] [phone] Screening mammogram for breast cancer Discharge Disposition: Home or Self Care from Last 3 Months Immunizations Name Administration [...] 2 polyps OTHER SURGICAL HISTORY 03/26/2019 PROCEDURE: KS REPAIR RECTOCELE SEPARATE PROCEDURE; COMMENT: and urethral [...] Status Comments Daughter Father Alive dm Mother dm, breast canc er, depression Sister Alive [...] care for your loved ones. For example, child care director or elderly care for an older adult? [...] Sexual Orientation Not on file Obstetrics History Para Term AB IAB SAB Ectopic Multiple Livin g Live Births 2 2 2 2 Date Outcome GA Total Labor Labor/2nd/3rd Weight Sex Type Anes PTL Cintia A1 A5 Name Clin Term Term Last Filed Vital Signs Vital Sign Reading Time Taken Comments Blood Pressure 108/67 09/26/2024 9:44 AM EDT Pulse 82 09/26/2024 9:44 AM EDT Temperature 35.8 C (96.4 F) 09/26/2024 9:44 AM EDT Respiratory Rate 13 09/26/2024 9:44 AM EDT Oxygen Saturation - - Inhaled Oxygen Concentration - - Weight 95.4 kg (210 lb 6.4 oz) 09/26/2024 9:44 A M EDT Height 154.9 cm (5' 1 ) 09/26/2024 9:44 AM EDT Body Mass Index 39.75 09/26/2024 9:44 AM EDT Plan of Treatment Upcoming Encounters Date Type Department Care Team (Late st Contact Info) Description 01/27/2025 8:45 AM EDT Office Visit [facility] - [address] [phone] Rosi Mena MD [address] [place] [address] 05/06/2025 10:00 AM EDT Office Visit Bariatric Surgery - [place] [address] [phone] Shannon Lawrence PA [address] [address] 06/18/2025 8:30 AM EST Appointment Radiology Department - [address] [phone] Health Maintenance Due Date Last Done Comments Diabetes: Annual Foot Exam 1976 Diabetes: Annual Retina Eye Exam 1976 Hepatitis B Vaccines (1 of 3 - 19+ 3-dose series) 1985 Pneumococcal Vaccine: 50+ Years (1 of 2 - PCV) 1985 Pneumococcal Vaccine: Pediatrics (0 to 5 Years) and At-Risk Patients (6 to 49 Years) (1 of 2 - PCV) 1985 Zoster Vaccines (2 of 2) 01/05/2021 11/10/2020, 0411/2020 HIV Screening 06/24/2022 Medicare Annual Wellness Visit 06/24/2022 Cervical Cancer Screening: HPV 08/15/2024 08/15/2019 Diabetes: Annual Urine Albumin-Creatinine Ratio (uACR) 02/19/2025 02/20/2024 Diabetes: Blood Sugar Control Test (HGBA1C) 03/02/2025 09/02/2024, 02/20/2024, 02/20/2024, Additional history exists Influenza Vaccine (#1) 2025 , 04/03/2023, 07/25/2022, Additional history exists Diabetes: Annual GFR (Glomerular Filtration Rate) 09/02/2025 09/02/2024, 02/20/2024, 02/20/2024, Additional history exists Depression Screening 09/25/2025 09/25/2024, 11/28/19 24 Social Influencers of Health Screening 09/25/2025 09/25/2024, 11/28/2023 DTaP,Tdap,and Td Vaccines (3 - Td or Tdap) 06/21/2026 06/21/2016, 01/20/2013 Breast Cancer Screening 12/17/2026 12/18/19, 12/12/2024, 12/06/2023, Additional history exists Colorectal Cancer Screening: Colonoscopy 10/18/2028 10/18/2018 Cholesterol Screening (Lipid Panel) 09/02/2029 09/02/2024, 02/20/2024, 02/20/2024, Additional history exists Hepatitis C Screening Completed 06/16/2020 COVID-19 Vaccine Completed 04/22/2024, 03/2023, 08/07/2022, Additional history exists HIB Vaccines Aged Out [...] Procedure Name Priority Date/Time Associated Diagnosis Comments US BREAST LIMITED RIGHT Routine 12/17/2024 11:15 AM EDT Abnormal mammogram MG MAMMO DIGITAL DIAGNOSTIC W SOPHIE RIGHT Routine 12/17/2024 10:46 AM EDT Abnormal mammogram MG MAMMO DIGITAL SCREENING W SOPHIE BILAT Routine 12/12/2024 8:35 AM EDT Screening mammogram for breast cancer COMPREHENSIVE METABOLIC PANEL Routine 09/02/2024 8:38 AM EST Type 2 diabetes mellitus without complication, without long-term current use of insulin (CMS/HCC V24, CMS/HCC V28) Mixed hyperlipidemia HEMOGLOBIN A1C Routine 09/02/2024 8:38 AM EST Type 2 diabetes mellitus without complication, without long-term current use of insulin (CMS/HCC V24, CMS/HCC V28) Mixed hyperlipidemia LIPID PANEL WITH REFLEX TO DIRECT LDL Routine 09/02/2024 8:38 AM EST Type 2 diabetes mellitus without complication, without long-term current use of insulin (CMS/HCC V24, CMS/HCC V28) Mixed hyperlipidemia HM URINE ALBUMIN CREATININE RATIO Routine 02/20/2024 HM DEPRESSION SCREENING Routine 11/28/2023 HM HEPATITIS C SCREENING Routine 06/16/2020 HM HPV Routine 08/15/2019 HM COLONOSCOPY Routine 10/18/2018 from Last 3 Months or Most Recently Relevant to Health Maintenance Results * US Breast Limited Right (12/17/2024 11:15 AM EDT) Anatomical Region Laterality Modality Breast Right Ultrasound 12/17/2024 12:0 3 PM EDT Impressions 12/17/2024 12:13 PM EDT Recommend 6 month follow-up mammogram for probably benign focal asymmetries at the 6 o'clock position of the right breast. BREAST DENSITY: B - There are scattered areas of fibroglandular density. BI-RADS CATEGORY: 3 - PROBABLY BENIGN RECOMMENDATION: Short Interval Follow-up is recommended for the right breast in 6 months. MAMMO LOCATION: [facility], [address] [place] [address], [phone], . -------- FINAL REPORT -------- Dictated By: Adrianna Fuentes Dictated Date: 12/17/2024 12:03 ET Assigned Physician: Adrianna Fuentes Reviewed and Electronically Signed By: Adrianna Fuentes Signed Date: 12/17/2024 12:13 ET Workstation ID: [id number] Transcribed By: Self Edit Transcribed Date: 12/17/2024 12:03 ET Narrative 12/17/2024 12:13 PM EDT EXAM: MG MAMMO DIGITAL DIAGNOSTIC W SOPHIE RIGHT, US BREAST LIMITED RIGHT HISTORY: Call back from a screening mammogram. FINDINGS: 90 ML and spot compression MLO and CC views performed with tomosynthesis. 2 persistent subcentimeter nodular focal asymmetries at the 6 o'clock position of the right breast located 7 cm from nipple and 10 cm from the nipple. These do not appear significantly changed compared with the 90 ML view from 12/06/2023 but are seen to better advantage. Targeted sonography shows no corresponding solid or cystic lesion. The mammographic abnormalities are probably benign and six-month follow-up mammogram is recommended. Procedure Note Adrianna Fuentes MD - 12/17/2024 EXAM: MG MAMMO DIGITAL DIAGNOSTIC W SOPHIE RIGHT, US BREAST LIMITED RIGHT HISTORY: Call back from a screening mammogram. FINDINGS: 90 ML and spot compression MLO and CC views performed with tomosynthesis.2 persistent subcentimeter nodular focal asymmetries at the 6 o'clockposition of the right breast located 7 cm from nipple and 10 cm from thenipple. These do not appear significantly changed compared with the 90 MLview from 12/06/2023 but are seen to better advantage. Targetedsonography shows no corresponding solid or cystic lesion. Themammographic abnormalities are probably benign and six-month follow-upmammogram is recommended. IMPRESSION: Recommend 6 month follow-up mammogram for probably benign focalasymmetries at the 6 o'clock position of the right breast. BREAST DENSITY: B - There are scattered areas of fibroglandular density. BI-RADS CATEGORY: 3 - PROBABLY BENIGN RECOMMENDATION: Short Interval Follow-up is recommended for the rightbreast in 6 months. MAMMO LOCATION: [facility], [address] [place] [address], [phone], . -------- FINAL REPORT -------- Dictated By: Adrianna Fuentes Dictated Date: 12/17/2024 12:03 ET Assigned Physician: Adrianna Fuentes Reviewed and Electronically Signed By: Adrianna Fuentes Signed Date: 12/17/2024 12:13 ET Workstation ID: [id number] Transcribed By: Self Edit Transcribed Date: 12/17/2024 12:03 ET us Rosi Mena MD IMG US PROCEDURES Final Result * MG Mammo Digital Diagnostic w Sophie Right (12/17/2024 10:46 AM EDT) Anatomical Region Laterality Modality Breast Right Mammography 12/17/2024 12:0 3 PM EDT Impressions 12/17/2024 12:13 PM EDT Recommend 6 month follow-up mammogram for probably benign focal asymmetries at the 6 o'clock position of the right breast. BREAST DENSITY: B - There are scattered areas of fibroglandular density. BI-RADS CATEGORY: 3 - PROBABLY BENIGN RECOMMENDATION: Short Interval Follow-up is recommended for the right breast in 6 months. MAMMO LOCATION: [facility], [address] [place] [address], [phone], . -------- FINAL REPORT -------- Dictated By: Adrianna Fuentes Dictated Date: 12/17/2024 12:03 ET Assigned Physician: Adrianna Fuentes Reviewed and Electronically Signed By: Adrianna Fuentes Signed Date: 12/17/2024 12:13 ET Workstation ID: [id number] Transcribed By: Self Edit Transcribed Date: 12/17/2024 12:03 ET Narrative 12/17/2024 12:13 PM EDT EXAM: MG MAMMO DIGITAL DIAGNOSTIC W SOPHIE RIGHT, US BREAST LIMITED RIGHT HISTORY: Call back from a screening mammogram. FINDINGS: 90 ML and spot compression MLO and CC views performed with tomosynthesis. 2 persistent subcentimeter nodular focal asymmetries at the 6 o'clock position of the right breast located 7 cm from nipple and 10 cm from the nipple. These do not appear significantly changed compared with the 90 ML view from 12/06/2023 but are seen to better advantage. Targeted sonography shows no corresponding solid or cystic lesion. The mammographic abnormalities are probably benign and six-month follow-up mammogram is recommended. Procedure Note Adrianna Fuentes MD - 12/17/2024 EXAM: MG MAMMO DIGITAL DIAGNOSTIC W SOPHIE RIGHT, US BREAST LIMITED RIGHT HISTORY: Call back from a screening mammogram. FINDINGS: 90 ML and spot compression MLO and CC views performed with tomosynthesis.2 persistent subcentimeter nodular focal asymmetries at the 6 o'clockposition of the right breast located 7 cm from nipple and 10 cm from thenipple. These do not appear significantly changed compared with the 90 MLview from 12/06/2023 but are seen to better advantage. Targetedsonography shows no corresponding solid or cystic lesion. Themammographic abnormalities are probably benign and six-month follow-upmammogram is recommended. IMPRESSION: Recommend 6 month follow-up mammogram for probably benign focalasymmetries at the 6 o'clock position of the right breast. BREAST DENSITY: B - There are scattered areas of fibroglandular density. BI-RADS CATEGORY: 3 - PROBABLY BENIGN RECOMMENDATION: Short Interval Follow-up is recommended for the rightbreast in 6 months. MAMMO LOCATION: [facility], [address] [place] [address], [phone], . -------- FINAL REPORT -------- Dictated By: Adrianna Fuentes Dictated Date: 12/17/2024 12:03 ET Assigned Physician: Adrianna Fuentes Reviewed and Electronically Signed By: Adrianna Fuentes Signed Date: 12/17/2024 12:13 ET Workstation ID: [id number] Transcribed By: Self Edit Transcribed Date: 12/17/2024 12:03 ET us Rosi Mena MD IMG BI PROCEDURES Final Result * (ABNORMAL) MG Mammo Digital Screening w Sophie bilat (12/12/2024 8:35 AM EDT) Anatomical Region Laterality Modality Breast Bilateral Mammography 12/12/2024 5:55 PM EDT Impressions 12/12/2024 6:24 PM EDT Asymmetric opacity in the retroareolar right breast. Additional evaluation with spot compression views in CC and MLO projection, full field straight lateral view and ultrasound is recommended. We will contact the patient for the arrangements. BI-RADS CATEGORY: 0 - INCOMPLETE - NEED ADDITIONAL IMAGING EVALUATION RECOMMENDATION: Additional right breast imaging recommended. Mammo Location: [facility], [address] [place] [address], [facility], . -------- FINAL REPORT -------- Dictated By: Nataly Malik Dictated Date: 12/12/2024 17:55 ET Assigned Physician: Nataly Malik Reviewed and Electronically Signed By: Nataly Malik Signed Date: 12/12/2024 18:24 ET Workstation ID: [id number] Transcribed By: Self Edit Transcribed Date: 12/12/2024 17:55 ET Narrative 12/12/2024 6:24 PM EDT CLINICAL: 59 years old, Female, routine annual exam. COMPARISON: Prior mammogram from 11/09/2023. TECHNIQUE: Bilateral MLO and CC views were obtained digitally with 2-D C views and 3-D mammogram (digital breast tomosynthesis). Computer-aided detection was utilized in evaluation of this exam (CAD). FINDINGS: There is arm asymmetric opacity with somewhat nodular appearance in the retroareolar right breast visualized on CC and MLO views. Additional evaluation is recommended with spot compression CC, spot compression MLO and full-field straight lateral view. Ultrasound would also be needed. There is no evidence of other suspicious mass or architectural distortion. No worrisome calcifications are evident. BREAST DENSITY: B - There are scattered areas of fibroglandular density. Procedure Note Nataly Malik MD - 12/12/2024 CLINICAL: 59 years old, Female, routine annual exam. COMPARISON: Prior mammogram from 11/09/2023. TECHNIQUE: Bilateral MLO and CC views were obtained digitally with 2-D Cviews and 3-D mammogram (digital breast tomosynthesis). Computer-aideddetection was utilized in evaluation of this exam (CAD). FINDINGS: There is arm asymmetric opacity with somewhat nodular appearance in theretroareolar right breast visualized on CC and MLO views. Additionalevaluation is recommended with spot compression CC, spot compression MLOand full-field straight lateral view. Ultrasound would also be needed. There is no evidence of other suspicious mass or architectural distortion.No worrisome calcifications are evident. BREAST DENSITY: B - There are scattered areas of fibroglandular density. IMPRESSION: Asymmetric opacity in the retroareolar right breast. Additionalevaluation with spot compression views in CC and MLO projection, fullfield straight lateral view and ultrasound is recommended. We willcontact the patient for the arrangements. BI-RADS CATEGORY: 0 - INCOMPLETE - NEED ADDITIONAL IMAGING EVALUATION RECOMMENDATION: Additional right breast imaging recommended. Mammo Location: [facility], [address] [place] [address], [phone], . -------- FINAL REPORT -------- Dictated By: Nataly Malik Dictated Date: 12/12/2024 17:55 ET Assigned Physician: Nataly Malik Reviewed and Electronically Signed By: Nataly Malik Signed Date: 12/12/2024 18:24 ET Workstation ID: [id number] Transcribed By: Self Edit Transcribed Date: 12/12/2024 17:55 ET us Rosi Mena MD IMG BI PROCEDURES Final Result * (ABNORMAL) Lipid panel with reflex to direct LDL (09/02/2024 8:38 AM EST) Cholesterol 183 0 - 200 mg/dL LAB CHEMISTRY METHOD 09/02/2024 11:02 AM [facility] Triglycerides 79 0 - 150 mg/dL LAB CHEMISTRY METHOD 09/02/2024 11:02 AM [facility] HDL 52 >=40 mg/dL LAB CHEMISTRY METHOD 09/02/2024 11:02 AM [facility] LDL Calculated 115(H) 0 - 100 mg/dL LAB CHEMISTRY METHOD 09/02/2024 11:02 AM [facility] VLDL Cholesterol Rodger 15.8 mg/dL LAB CHEMISTRY METHOD 09/02/2024 11:02 AM [facility] Non HDL Chol. (LDL+VLDL) 131 <145 mg/dL LAB CHEMISTRY METHOD 09/02/2024 11:02 AM [facility] Chol/HDL Ratio 3.5 0.0 - 4.4 LAB CHEMISTRY METHOD 09/02/2024 11:02 AM [facility] Blood Venous blood specimen / Unknown Venipuncture / Unknown 09/02/2024 8:38 AM EST 09/02/2024 8:38 AM EST us Rosi Mena MD LAB BLOOD ORDERABL ES Final Result [facility] [address] [place] [address], * (ABNORMAL) Hemoglobin A1c (09/02/2024 8:38 AM EST) Hemoglobin A1C 6.8(H) <6.5 % LAB CHEMISTRY METHOD 09/02/2024 12:38 PM [facility] Mean Bld Glu Estim. 148 mg/dL LAB CHEMISTRY METHOD 09/02/2024 12:38 PM [facility] Blood Venous blood specimen / Unknown Venipuncture / Unknown 09/02/2024 8:38 AM EST 09/02/2024 8:38 AM EST us Rosi Mena MD LAB BLOOD ORDERABL ES Final Result [facility] [address] [place] [address], [place] [phone] * (ABNORMAL) Comprehensive metabolic panel (09/02/2024 8:38 AM EST) Sodium 139 133 - 145 mmol/L LAB CHEMISTRY METHOD 09/02/2024 11:02 AM [facility] Potassium 4.7 3.5 - 5.5 mmol/L LAB CHEMISTRY METHOD 09/02/2024 11:02 AM [facility] Chloride 107 96 - 110 mmol/L LAB CHEMISTRY METHOD 09/02/2024 11:02 AM [facility] CO2 28 21 - 32 mmol/L LAB CHEMISTRY METHOD 09/02/2024 11:02 AM [facility] Anion Gap 4 3 - 11 LAB CHEMISTRY METHOD 09/02/2024 11:02 AM [facility] Glucose 131(H) 70 - 100 mg/dL LAB CHEMISTRY METHOD 09/02/2024 11:02 AM [facility] BUN 14 5 - 25 mg/dL LAB CHEMISTRY METHOD 09/02/2024 11:02 AM [facility] Creatinine 0.79 0.50 - 1.10 mg/dL LAB CHEMISTRY METHOD 09/02/2024 11:02 AM [facility] eGFR 87 >=60 mL/min/1. 73m2 LAB CHEMISTRY METHOD 09/02/2024 11:02 AM [facility] Comment:Calculation based on the Chronic Kidney Disease Epidemiology Collaboration (CKD-EPI) equation refit without adjustment for race. BUN/Creatinine Ratio 17.7 LAB CHEMISTRY METHOD 09/02/2024 11:02 AM [facility] Calcium 9.8 8.5 - 10.5 mg/dL LAB CHEMISTRY METHOD 09/02/2024 11:02 AM [facility] AST (SGOT) 8(L) 10 - 42 unit/L LAB CHEMISTRY METHOD 09/02/2024 11:02 AM [facility] ALT (SGPT) 23 10 - 60 unit/L LAB CHEMISTRY METHOD 09/02/2024 11:02 AM [facility] Alkaline Phosphatase 88 42 - 121 unit/L LAB CHEMISTRY METHOD 09/02/2024 11:02 AM [facility] Total Protein 8.1(H) 6.0 - 8.0 g/dL LAB CHEMISTRY METHOD 09/02/2024 11:02 AM [facility] Albumin 4.1 3.2 - 5.0 g/dL LAB CHEMISTRY METHOD 09/02/2024 11:02 AM [facility] Total Bilirubin 0.6 0.0 - 1.4 mg/dL LAB CHEMISTRY METHOD 09/02/2024 11:02 AM [facility] Blood Venous blood specimen / Unknown Venipuncture / Unknown 09/02/2024 8:38 AM EST 09/02/2024 8:38 AM EST Rosi Mena MD LAB BLOOD ORDERABL ES Final Result [facility] [address] [place] [address], * Urine Albumin Creatinine Ratio (02/20/2024) Urine Albumin Creatinine Ratio abstracted Historical Provider HEALTH MAINTENANCE Final Result * Depression Screening (11/28/2023) Depression Screening abstracted Historical Provider HEALTH MAINTENANCE Final Result * Hepatitis C Screening (06/16/2020) Hepatitis C Screening abstracted Historical Provider HEALTH MAINTENANCE Final Result * Cervical Cancer Screening: HPV (08/15/2019) Cervical Cancer Screening: HPV abstracted, negative Historical Provider HEALTH MAINTENANCE Final Result * Colonoscopy (10/18/2018) Colonoscopy abstracted, no interpretation Anatomical Region Laterality Modality Other Historical Provider HEALTH MAINTENANCE Final Result from Last 3 Months or Most Recently Relevant to Health Maintenance Insurance MEDICARE [place]ICAID - [place] Care Teams Web Designer Developer Relationship Specialty Start Date End Date Rosi Mena MD [address] [place] [id number] PCP - General Internal Medicine 05/30/24
== END 2025-01-21 13:51 | disposition home or self-care (01) ==
LOC: HO.RHE 12:42
PROVIDERS: PCP Internal Medicine; Visit Provider Student in an Organized Health Care Education/Training Program
DX: M79.7 Fibromyalgia (principal)
CPT/HCPCS: 99214

== ENCOUNTER → 2025-01-21 12:42 | Outpatient (BNVA) | payer MEDICARE, MEDICAID, SELFPAY | PROVIDERS: PCP Internal Medicine; Visit Provider Student in an Organized Health Care Education/Training Program | DX: M79.7 Fibromyalgia (principal) | CPT/HCPCS: 99212 ==

== ENCOUNTER 2025-02-09 11:14 | Outpatient (AMB) | payer MEDICARE, MEDICAID, SELFPAY ==
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
[2025-02-09 11:23] VITALS: BP 136/73; PULSE 81; O2SAT 98; BMI 37.6
--- OUTSIDE RECORDS SUMMARY | 2025-02-09 12:32 | XMS_ITS | Clinical Summary ---
Author Organization [facility] [address] [place] [address] [place] [phone] Phone Care Team Providers Care Loom Changeover Operator Name Role Phone Rosi Mena MD Primary Care Prov ider Allergies Active Allergy Reactions Criticality Noted Date Comments [place] Hives 07/24/2022 Codeine Hives,Nausea And Vomiting 10/23/2012 Iodinated Contrast Media Hives High 01/13/2016 Pt stated that back in 1992 she broke out in hives after iv contrast inj. No sob. Phlfnfb-Sly-Zra Reductase Inhibitors Pain Low 02/20/2024 Myalgia and joint pain Acme Hives High 07/24/2022 Medications brexpiprazole (Rexulti) 2 [...] Date Diagnosed Date Type 2 diabetes mellitus ([facility] V24, [facility] V 28) 04/21/2024 Assessment & Plan [...] Severe obesity (BMI 35.0-39. 9) with comorbidity ([facility] V24, [facility] V28) 04/01/2021 Assessment & Plan (09/26/2024 10:08 AM EDT): Assessment & Plan (05/30/2024 9:42 AM EST): BMI 37.3. Weight loss strategies were discussed with the patient today. Already evaluated by weight management. Pending to start Mounjaro. Chronic constipation 03/21/2021 Overview (04/21/2024): [facility] gastroenterology Abnormal stress test 08/06/2019 Overview [...] (04/21/2024): Surgical repair with Dr. Engle at [facility] Chronic low back pain 06/06/2017 Overview (04/21/2024): Follows with rheumatology at [facility], Dr. Bam Mon; [facility] pain management Assessment & Plan (05/30/2024 9:42 [...] cervix uteri 10/02/2013 Fibromyalgia 07/23/2013 Overview (04/21/2024): [facility] rheumatology, on Lyrica; failed trials of gabapentin, duloxetine, amitriptyline, Savella, cyclobenzaprine Smoking 01/20/2013 Anxiety 10/23/2012 Encounters Date Type Department Care Team Description 12/17/2024 10:36 AM EDT - 12/17/2024 11:59 PM EDT Hospital Encounter Radiology Department - [address] [phone] Abnormal mammogram Discharge Disposition: Home or Self Care 12/17/2024 10:36 AM EDT - 12/17/2024 11:59 PM EDT Hospital Encounter Radiology Department - [address] [phone] Abnormal mammogram Discharge Disposition: Home or Self Care 12/12/2024 8:23 AM EDT - 12/12/2024 11:59 PM EDT Hospital Encounter Radiology Department - [address] [phone] Screening mammogram for breast cancer Discharge Disposition: [...] 2 polyps OTHER SURGICAL HISTORY 03/26/2019 PROCEDURE: PA REPAIR RECTOCELE SEPARATE PROCEDURE; COMMENT: and urethral [...] care for your loved ones. For example, child's nurse or elderly care for an older adult? [...] Care Team (Late st Contact Info) Description 02/10/2025 1:15 PM EDT Office Visit [facility] - [address] [phone] Ekaterina Casas PA [address] [place], [place] 02/26/2025 8:30 AM EDT Office Visit Bariatric Surgery - [place] [address] [phone] Shannon Lawrence PA [address] [address] 06/18/2025 8:30 AM EST Appointment Radiology Department - [address] [phone] Health Maintenance Due Date Last Done Comments Diabetes: Annual Foot Exam 1976 Diabetes: Annual Retina Eye Exam 1976 Hepatitis B Vaccines (1 of 3 - 19+ 3-dose series) 1985 Pneumococcal Vaccine: 50+ Years (1 of 2 - PCV) 1985 Zoster Vaccines (2 of 2) 01/05/2021 11/10/2020, 04/0 11/2020 HIV Screening 06/24/2022 Medicare Annual Wellness Visit 06/24/2022 Cervical Cancer Screening: HPV 08/15/2024 08/15/2019 Diabetes: Annual Urine Albumin-Creatinine Ratio (uACR) 02/19/2025 02/20/2024 Influenza Vaccine (#1) 2025 , 04/03/2023, 07/25/2022, Additional history exists Diabetes: Blood Sugar Control Test (HGBA1C) 07/26/2025 01/23/2025, 09/02/2024, 02/20/2024, Additional history exists Diabetes: Annual GFR (Glomerular Filtration Rate) 09/02/2025 09/02/2024, 02/20/2024, 02/20/2024, Additional history exists Social Influencers of Health Screening 09/25/2025 09/25/2024, 11/28/2023 DTaP,Tdap,and Td Vaccines (3 - Td or Tdap) 06/21/2026 06/21/2016, 01/20/2013 Breast Cancer Screening 12/17/2026 12/18/19, 12/12/2024, 12/06/2023, Additional history exists Colorectal Cancer Screening: Colonoscopy 10/18/2028 10/18/2018 Cholesterol Screening (Lipid Panel) 09/02/2029 09/02/2024, 02/20/2024, 02/20/2024, Additional history exists Hepatitis C Screening Completed 06/16/2020 COVID-19 Vaccine Completed 04/22/2024, 03/2023, 08/07/2022, Additional history exists Depression Screening Completed 09/25/2024, 11/28/19 24 HIB Vaccines Aged Out No longer eligi [...] Procedure Name Priority Date/Time Associated Diagnosis Comments HEMOGLOBIN A1C Routine 01/23/2025 3:40 PM EDT Type 2 diabetes mellitus without complication, without long-term current use of insulin ([facility] V24, [facility] V28) US BREAST LIMITED RIGHT Routine 12/17/2024 11:15 [...] Relevant to Health Maintenance Results * (ABNORMAL) Hemoglobin A1c (01/23/2025 3:40 PM EDT) Hemoglobin A1C 6.9(H) <6.5 % LAB CHEMISTRY METHOD 01/23/2025 9:29 PM EDT [facility] Mean Bld Glu Estim. 151 mg/dL LAB CHEMISTRY METHOD 01/23/2025 9:29 PM EDT [facility] Blood Venous blood specimen / Unknown Venipuncture / Unknown 01/23/2025 3:40 PM EDT 01/23/2025 3:40 PM EDT us Rosi Mena MD LAB BLOOD ORDERABL ES Final Result [facility] ([facility]) [facility] [address] [place] [address], [place] [phone] * US Breast Limited Right (12/17/2024 11:15 [...] right breast in 6 months. MAMMO LOCATION: [facility], [address] [place] [address], [phone], . -------- FINAL REPORT -------- Dictated By: Adrianna Fuentes Dictated Date: 12/17/2024 12:03 ET Assigned Physician: Adrianna Fuentes Reviewed and Electronically Signed By: Adrianna Fuentes Signed Date: 12/17/2024 12:13 ET Workstation ID: [id number] Transcribed By: Self Edit Transcribed Date: 12/17/2024 [...] the rightbreast in 6 months. MAMMO LOCATION: [facility], [address] [place] [address], [phone], . -------- FINAL REPORT -------- Dictated By: Adrianna Fuentes Dictated Date: 12/17/2024 12:03 ET Assigned Physician: Adrianna Fuentes Reviewed and Electronically Signed By: Adrianna Fuentes Signed Date: 12/17/2024 12:13 ET Workstation ID: [id number] Transcribed By: Self Edit Transcribed Date: 12/17/2024 [...] right breast in 6 months. MAMMO LOCATION: [facility], [address] [place] [address], [phone], . -------- FINAL REPORT -------- Dictated By: Adrianna Fuentes Dictated Date: 12/17/2024 12:03 ET Assigned Physician: Adrianna Fuentes Reviewed and Electronically Signed By: Adrianna Fuentes Signed Date: 12/17/2024 12:13 ET Workstation ID: [id number] Transcribed By: Self Edit Transcribed Date: 12/17/2024 [...] the rightbreast in 6 months. MAMMO LOCATION: [facility], [address] [place] [address], [phone], . -------- FINAL REPORT -------- Dictated By: Adrianna Fuentes Dictated Date: 12/17/2024 12:03 ET Assigned Physician: Adrianna Fuentes Reviewed and Electronically Signed By: Adrianna Fuentes Signed Date: 12/17/2024 12:13 ET Workstation ID: [id number] Transcribed By: Self Edit Transcribed Date: 12/17/2024 12:03 ET Rosi Mena MD IMG BI PROCEDURES Final [...] Additional right breast imaging recommended. Mammo Location: [facility], [address] [place] [address], [phone], . -------- FINAL REPORT -------- Dictated By: Nataly Malik Dictated Date: 12/12/2024 17:55 ET Assigned Physician: Nataly Malik Reviewed and Electronically Signed By: Nataly Malik Signed Date: 12/12/2024 18:24 ET Workstation ID: [id number] Transcribed By: Self Edit Transcribed Date: 12/12/2024 [...] Additional right breast imaging recommended. Mammo Location: [facility], [address] [place] [address], [phone], . -------- FINAL REPORT -------- Dictated By: Nataly Malik Dictated Date: 12/12/2024 17:55 ET Assigned Physician: Nataly Malik Reviewed and Electronically Signed By: Nataly Malik Signed Date: 12/12/2024 18:24 ET Workstation ID: [id number] Transcribed By: Self Edit Transcribed Date: 12/12/2024 17:55 ET us Rosi Mena MD IMG BI PROCEDURES Final Result * (ABNORMAL) Lipid panel with reflex to direct LDL (09/02/2024 8:38 AM EST) Cholesterol 183 0 - 200 mg/dL LAB CHEMISTRY METHOD 09/02/2024 11:02 AM EST [facility] Triglycerides 79 0 - 150 mg/dL LAB CHEMISTRY METHOD 09/02/2024 11:02 AM EST [facility] HDL 52 >=40 mg/dL LAB CHEMISTRY METHOD 09/02/2024 11:02 AM EST [facility] LDL Calculated 115(H) 0 - 100 mg/dL LAB CHEMISTRY METHOD 09/02/2024 11:02 AM EST [facility] VLDL Cholesterol Rodger 15.8 mg/dL LAB CHEMISTRY METHOD 09/02/2024 11:02 AM EST [facility] Non HDL Chol. (LDL+VLDL) 131 <145 mg/dL LAB CHEMISTRY METHOD 09/02/2024 11:02 AM EST [facility] Chol/HDL Ratio 3.5 0.0 - 4.4 LAB CHEMISTRY METHOD 09/02/2024 11:02 AM [facility] Blood Venous blood specimen / Unknown Venipuncture / Unknown 09/02/2024 8:38 AM EST 09/02/2024 8:38 AM EST us Rosi Mena MD LAB BLOOD ORDERABL ES Final Result [facility] [address] [place] [address], * (ABNORMAL) Comprehensive metabolic panel (09/02/2024 8:38 AM EST) Sodium 139 133 - 145 mmol/L LAB CHEMISTRY METHOD 09/02/2024 11:02 AM [facility] Potassium 4.7 3.5 - 5.5 mmol/L LAB CHEMISTRY METHOD 09/02/2024 11:02 AM [facility] Chloride 107 96 - 110 mmol/L LAB CHEMISTRY METHOD 09/02/2024 11:02 AM [facility] CO2 28 21 - 32 mmol/L LAB CHEMISTRY METHOD 09/02/2024 11:02 AM [facility] Anion Gap 4 3 - 11 LAB CHEMISTRY METHOD 09/02/2024 11:02 AM [facility] Glucose 131(H) 70 - 100 mg/dL LAB CHEMISTRY METHOD 09/02/2024 11:02 AM [facility] BUN 14 5 - 25 mg/dL LAB CHEMISTRY METHOD 09/02/2024 11:02 AM [facility] Creatinine 0.79 0.50 - 1.10 mg/dL LAB CHEMISTRY METHOD 09/02/2024 11:02 AM [facility] eGFR 87 >=60 mL/min/1. 73m2 LAB CHEMISTRY METHOD 09/02/2024 11:02 AM [facility] Comment:Calculation based on the Chronic Kidney Disease Epidemiology Collaboration (CKD-EPI) equation refit without adjustment for race. BUN/Creatinine Ratio 17.7 LAB CHEMISTRY METHOD 09/02/2024 11:02 AM [facility] Calcium 9.8 8.5 - 10.5 mg/dL LAB CHEMISTRY METHOD 09/02/2024 11:02 AM [facility] AST (SGOT) 8(L) 10 - 42 unit/L LAB CHEMISTRY METHOD 09/02/2024 11:02 AM [facility] ALT (SGPT) 23 10 - 60 unit/L LAB CHEMISTRY METHOD 09/02/2024 11:02 AM [facility] Alkaline Phosphatase 88 42 - 121 unit/L LAB CHEMISTRY METHOD 09/02/2024 11:02 AM [facility] Total Protein 8.1(H) 6.0 - 8.0 g/dL LAB CHEMISTRY METHOD 09/02/2024 11:02 AM [facility] Albumin 4.1 3.2 - 5.0 g/dL LAB CHEMISTRY METHOD 09/02/2024 11:02 AM [facility] Total Bilirubin 0.6 0.0 - 1.4 mg/dL LAB CHEMISTRY METHOD 09/02/2024 11:02 AM [facility] Blood Venous blood specimen / Unknown Venipuncture / Unknown 09/02/2024 8:38 AM EST 09/02/2024 8:38 AM EST Rosi Mena MD LAB BLOOD ORDERABL ES Final Result [facility] [address] [place] [address], [place] [phone] * Urine Albumin Creatinine Ratio (02/20/2024) [facility] Urine Albumin Creatinine Ratio abstracted Historical Provider HEALTH MAINTENANCE Final Result * Depression Screening (11/28/2023) [facility] Depression Screening abstracted Historical Provider HEALTH MAINTENANCE Final Result * Hepatitis C Screening (06/16/2020) [facility] Hepatitis C Screening abstracted Historical Provider HEALTH MAINTENANCE Final Result * Cervical Cancer Screening: HPV (08/15/2019) [facility] Cervical Cancer Screening: HPV abstracted, negative Historical Provider HEALTH MAINTENANCE Final Result * Colonoscopy (10/18/2018) Colonoscopy abstracted, no interpretation Anatomical Region Laterality Modality Other Historical Provider HEALTH MAINTENANCE Final Result from Last 3 Months or Most Recently Relevant to Health Maintenance Insurance MEDICARE [place]ICAID [place] Care Teams Loom Changeover Operator Relationship Specialty Start Date End Date Rosi Mena MD [address] [place] [id number] PCP - General Internal Medicine 05/30/24
--- OUTSIDE RECORDS SUMMARY | 2025-02-09 12:32 | XMS_ITS ---
Author Name [facility] Organization Unknown Care Team Organization Name Specialty Phone Email Start Date End Da te [facility] Rosi Hayes Primary Care 03/22/2023 03/03/2024 [facility] Lizeth Dickinson Primary Care 12/22/20222023 [facility] Shannon Payton Primary Care 05/23/202202/13
== END 2025-02-09 11:59 | disposition home or self-care (01) ==
LOC: HO.PMC 11:15
PROVIDERS: PCP Internal Medicine; Visit Provider Nurse Practitioner Family
DX: M79.7 Fibromyalgia (principal); M54.16 Radiculopathy, lumbar region; M51.369 Other intervertebral disc degeneration, lumbar region without mention of lumbar back pain or lower extremity pain; M54.51 Vertebrogenic low back pain; M79.604 Pain in right leg; M79.605 Pain in left leg; G25.81 Restless legs syndrome
CPT/HCPCS: 99204

== ENCOUNTER → 2025-02-09 11:14 | Outpatient (BNVA) | payer MEDICARE, MEDICAID, SELFPAY | PROVIDERS: PCP Internal Medicine; Visit Provider Nurse Practitioner Family | DX: M79.7 Fibromyalgia (principal); M54.16 Radiculopathy, lumbar region; G89.29 Other chronic pain; M51.369 Other intervertebral disc degeneration, lumbar region without mention of lumbar back pain or lower extremity pain; M54.51 Vertebrogenic low back pain; M79.604 Pain in right leg; M79.605 Pain in left leg; G25.81 Restless legs syndrome; F17.210 Nicotine dependence, cigarettes, uncomplicated | CPT/HCPCS: 99202 ==

== ENCOUNTER 2025-02-19 08:32 | Outpatient (AMB) | payer MEDICARE, MEDICAID, SELFPAY ==
--- OUTSIDE RECORDS SUMMARY | 2025-02-17 15:02 | XMS_ITS | Continuity of Care Document ---
Author Organization [facility] Address [address] [place] [address]- Care Team Providers Care Theology Teacher Name Role Phone Elin Sanchez MD, Rosi Miller Primary Care Physicia n Encounter [facility] Date(s): 02/17/25 - 02/17/[address] [address]- Discharge Disposition: A-D/C Home Attending Physician: Mihai Renteria MD Admitting Physician: Mihai Renteria MD Referring Physician: Not on Staff, Referring MD Encounter Type: Disch ES Allergies, Adverse Reactions, Alerts Substance Criticality Severity Reaction Reaction Severity Status Contrast Dye hives, SOB Active codeine family hx of reaction Active [place] hives and resp distress Active Immunizations Given and Recorded Vaccine Date Status Refusal Reason tetanus/diphtheria/pertussis, acel(Tdap) 06/21/16 Given influenza virus vaccine, inactivated 05/16/16 Give n Medications cephalexin monohydrate 500 mg oral capsule 1 capsule = 500 mg, By Mouth, Every 12 hours, for 3 days, # 6 capsule, 0 Refills, Acute 02/18/25 2:25:00 PM EDT, 02/15/25 2:25:00 PM EDT, Capsule, [facility]/pharmacy #[id number], Partial fill upon patient request ifthe prescription is for a schedule II opioid drug., 158, cm, 02/15/25 13:59:00 EDT, Height, 91, kg, 12/01/24 17:57:00 EDT, Dry Weight Start Date: 02/15/25 Stop Date: 02/18/25 Status: Ordered Quantity: 6.0 Unit: capsule Repeat number: 1 Ibuprofen 800 mg, By Mouth, Every 8 hours, PRN, Refills 0, Maintenance, Pain , Moderate, 03/12/18 4:46:59 PM EDT Start Date: 03/12/18 Status: Ordered Repeat number: 1 LORazepam 1 mg oral tablet 1 tablet = 1 mg, By Mouth, 2 times a day, for 14 days, as needed for anxiety, # 28 tablet, 5 Refills, Acute 03/11/25 1:32:00 PM EDT, 12/17/24 1:32:00 PM EDT, Tablet, [facility] #[id number], f41.1, 158, cm, 12/09/24 15:23:00 EDT, Height, 91, kg, 12/01/24 17:57:00 EDT, Dry Weight Start Date: 12/17/24 Stop Date: 03/11/25 Status: Ordered Quantity: 28.0 Unit: tablet Repeat number: 6 Lyrica 225 mg oral capsule 1 capsule = 225 mg, By Mouth, 2 times a day, # 60 capsule, 0 Refills, Maintenance, 08/22/19 7:04:00 AM EST, Capsule Start Date: 08/22/19 Status: Ordered Quantity: 60.0 Unit: capsule Repeat number: 1 metFORMIN 500 mg oral tablet See Instructions, 1 tablet By Mouth 2 times a day, 0 Refills, Maintenance, 02/15/25 2:02:00 PM EDT, Partial fill upon patient request if the prescription is for a schedule II opioid drug. Start Date: 02/15/25 Status: Ordered Repeat number: 1 MiraLax oral powder for reconstitution = 17 Gm, By Mouth, 2 times a day, dissolve in 4 to 8 oz of beverage, # 238 Gm, 0 Refills, Maintenance, 06/14/24 9:11:00 PM EST, REC Powder, [facility]/pharmacy #[id number], Partial fill upon patient request if the prescription is for a schedule II opioid drug., 17 Gm By Mouth 2 times a day,Instr:dissolve in 4 to 8 oz of beverage, 156, cm, 06/14/24 20:41:00 EST, Height, 91, kg, 06/14/24 20:41:00 EST, Dry Weight Start Date: 06/14/24 Status: Ordered Quantity: 238.0 Unit: g Repeat number: 1 ondansetron 4 mg oral tablet, disintegrating 1 tablet = 4 mg, By Mouth, Every 8 hours, PRN as needed for nausea/vomiting, allow tablet to dissolve under tongue, # 10 tablet, 0 Refills, Maintenance, 06/14/24 5:02:00 PM EST, DIS Tablet, [facility] #[id number], Partial fill upon patient request if the prescription is for a schedule II opioid drug., 156, cm, 06/14/24 16:37:00 EST, Height, 91, kg, 06/14/24 16:37:00 EST, Dry Weight Start Date: 06/14/24 Status: Ordered Quantity: 10.0 Unit: tablet Repeat number: 1 ondansetron 4 mg oral tablet, disintegrating 1 tablet = 4 mg, By Mouth, Every 6 hours, PRN as needed for nausea/vomiting, # 14 tablet, 0 Refills, Maintenance, 06/14/24 9:13:00 PM EST, DIS Tablet, [facility]/pharmacy #[id number], Partial fill upon patient request if the prescription is for a schedule II opioid drug., 156, cm, 06/14/24 20:41:00 EST, Height,91, kg, 06/14/24 20:41:00 EST, Dry Weight Start Date: 06/14/24 Status: Ordered Quantity: 14.0 Unit: tablet Repeat number: 1 oxybutynin 10 mg/24 hr oral tablet, extended release 1 tablet = 10 mg, By Mouth, Daily, # 30 tablet, 0 Refills, Maintenance, 05/11/22 1:22:00 PM EDT, ERTablet, Partial fill upon patient request if the prescription is for a schedule II opioid drug. Start Date: 05/11/22 Status: Ordered Quantity: 30.0 Unit: tablet Repeat number: 1 propranolol 20 mg oral tablet 20 mg, 1, tablet, By Mouth, 2 times a day, # 60 tablet, Refills 5, Tot. Refills 5, Maintenance, 12/17/24 1:30:00 PM EDT, Route to Pharmacy Electronically, [facility] #[id number], dosage increase -can fill, 158, cm, 12/09/24 15:23:00 EDT, Height, 91, kg, 12/01/24 17:57:00 EDT, Dry Weight Start Date: 12/17/24 Status: Ordered Quantity: 60.0 Unit: tablet Repeat number: 6 Rexulti 2 mg oral tablet 1 tablet = 2 mg, By Mouth, Daily, # 30 tablet, 5 Refills, Maintenance, 12/17/24 1:30:00 PM EDT, Tablet, [facility] #[id number], Partial fill upon patient request if the prescription is for a schedule II opioid drug., 158, cm, 12/09/24 15:23:00 EDT, Height, 91, kg, 12/01/24 17:57:00 EDT, Dry Weight Start Date: 12/17/24 Status: Ordered Quantity: 30.0 Unit: tablet Repeat number: 6 traZODone 50 mg oral tablet See Instructions, 1-2 tablet By Mouth nightly as needed, # 60 tablet, Refills 5, Tot. Refills 5, Maintenance, 12/17/24 1:31:00 PM EDT, Instructions Replace Required Details, Route to Pharmacy Electronically, [facility] #[id number], Partial fill upon patient request if the prescription is for a schedule II opioid drug., 158, cm, 12/09/24 15:23:00 EDT, Height, 91, kg, 12/01/24 17:57:00 EDT, Dry Weight Start Date: 12/17/24 Status: Ordered Quantity: 60.0 Unit: tablet Repeat number: 6 Tylenol 8 Hour 650 mg oral tablet, extended release 2 tablet = 1,300 mg, By Mouth, Every 8 hours, PRN as needed for pain, # 24 tablet, 0 Refills, Maintenance, 05/11/22 2:09:00 PM EDT, ER Tablet, Partial fill upon patient request if the prescription isfor a schedule II opioid drug. Start Date: 05/11/22 Status: Ordered Quantity: 24.0 Unit: tablet Repeat number: 1 Problem List Condition Confirmation Course Effective Dates Status Health St atus Informant Chronic ankle pain Confirmed Active Fibromyalgia Confirmed Active Generalized anxiety disorder Confirmed Active Irritable bowel syndrome (IBS) Confirmed Active Low back pain Confirmed Active Myofascial pain Confirmed Active Piriformis syndrome of left side Confirmed Active Lumbar herniated disc Confirmed Active Left lumbar radiculitis Confirmed Active Major depressive disorder, recurrent episode, mild Confirmed Active Restless leg Confirmed Active Sacroiliac joint dysfunction of left side Confirmed Active Severe obesity (BMI 35.0-39.9) with comorbidity Confirmed Active Urinary incontinence Confirmed Active Results Radiology Reports * Exam Date Time Procedure Performing Provider Status 02/17/25 1:[address] Abdomen and Pelvis W/O Contrast Auth (Verified) Notes: (CT Abdomen and Pelvis W/O Contrast) Reason For Exam: Lower pelvic pain/pressure;Pain RESULT: CT Abdomen and Pelvis W/O Contrast CT Abdomen and Pelvis W/O Contrast Hx of Present Illness: c o lower abd pain for x4 days. +urinary frequency. Neg UA culture at sunday. no fevers. sent in for CT. denies N V D; Reason: Pain; Lower pelvic pain pressure; Clinical Question(s): Other: TECHNIQUE: Spiral CT through the abdomen and pelvis without IV contrast formatted in 3 planes. Thisstudy was performed without oral contrast. Weight- based protocol using automatic tube modulation was used to optimize exposure parameters. CTDIvol Body: 22.56 mGy, DLP Body: 1150 mGy*cm. COMPARISON: 06/14/2024 FINDINGS: Lack of IV contrast decreases sensitivity. Within this confine: Rfid Analyst View Findings, Lines and Tubes: None. Visualized Chest: Lung bases are clear. Mild left lower lobe bronchiectasis as before. No pleural effusion. The heart is normal in size. No pericardial effusion. Small hiatal hernia Diaphragm: Normal. Liver: Normal. Gallbladder: No CT evidence of gallbladder pathology. Bile ducts: No biliary ductal dilation. Spleen: Normal. Pancreas: Normal. Adrenal glands: Normal. Kidneys and ureters: No hydronephrosis or noncontrast evidence of suspicious masses. Two nonobstructive left renal calculi again noted, measuring up to 2 to 3 mm. Bladder: Under distended, limiting evaluation, but otherwise unremarkable. Reproductive organs: Unremarkable. Stomach, small bowel, and large bowel: No evidence of bowel obstruction. Diverticulosis Appendix: Normal. Peritoneum and retroperitoneum: No ascites or pneumoperitoneum. No omental or mesenteric lesions. Lymph nodes: No enlarged lymph nodes. Blood vessels: Mild-moderate vascular calcifications but no aneurysm. Abdominal and pelvic wall: Unremarkable. Bones: No acute abnormality. IMPRESSION: Lack of IV contrast decreases sensitivity. Within this confine: 1. No hydronephrosis. Two tiny nonobstructive left renal calculi as before. No other acute intra-abdominal abnormality. 2. Diverticulosis. WSN: [id number] Ordering Physician: Ekaterina Gongora Dictated By: Kleber Schulz MD Dictated Date/Time: 02/17/25 2:15 pm Reviewed By: Kleber Schulz MD Signed By: Kleber Schulz MD Signed Date/Time: 02/17/25 2:15 pm Transcribed By: MICAH Transcribed Date/Time: 02/17/25 2:05 pm Social History Social History Type Response Smoking Status Former smoker, quit more than 30 days ago; Interested in cessation: No; Patient wants NRT during admission No; Other: Quit July 01, 2021.; entered on: 05/11/22 Sex Sex Representation Female (finding) EKG study * Event Display: ECG 12-Lead Authored Date: Please click on pdf link to open report * Event Display: ECG 12-Lead Authored Date: Ventricular Rate: 75 BPM Atrial Rate: 75 BPM P-R Interval: 146 ms QRS Duration: 86 ms Q-T Interval: 400 ms QTC Calculation(Bazett): [address]: [address]: [address]: 48 degrees Normal sinus rhythm Nonspecific T wave abnormality Incomplete right bundle branch block When compared with ECG of 01-Dec-2024 12:52, No significant change was found Confirmed by FABIOLA LINDQUIST MD ([id number]) on 02/17/2025 9:30:04 PM [place]: FABIOLA LINDQUIST MD Note * Ekaterina House: PERFORM Event Display: Patient Education Leaflets Authored Date: [id number] Pelvic Pain, Uncertain Cause ?? [id number] Pelvic Pain, Uncertain Cause Pelvic pain is pain felt in the lowest part of the belly (abdomen) and between the hipbones. The pain may occur suddenly and recently (acute). Or the pain may last for 6 months or longer (chronic). There are many possible causes of pelvic pain. The pain may be from a problem in the female reproductive system. Or it may be from a problem in the digestive, urinary, or musculoskeletal systems. Based on your visit today, the exact cause of your pelvic pain is not certain. Your condition doesn't seem to be serious at this time. But it is important for you to keep watching for any new symptoms or worsening of your condition. General care Your doctor may advise a number of ways to help manage your pain. These can include: ??? Taking gryy-omo-esxgizs pain medicine. Stronger pain medicine may also be prescribed, if needed. ??? Applying heat to the pelvic area. Use a heating pad or a hot pack. Taking a hot bath may also help. ??? Getting plenty of rest. ??? Making certain lifestyle changes. These can include practicing good posture and getting regular exercise. Studies have shown that these changes help reduce pelvic pain in some people. ??? Seeing a physical therapist or pain specialist. These health care providers can discuss other ways to manage pain with you. ??? Using acupressure or acupuncture. ?? Follow-up care Follow up with your doctor as advised.? When to get medical advice Contact your doctor right away if you have: ??? Fever of 100.4??F (38??C) or higher, or as directedby your doctor. ??? Pain that gets worse or you have sudden, severe pain or new pain. ??? Nausea, vomiting, sweating, or restlessness. ??? Dizziness or fainting. ??? Abnormal vaginal discharge. ??? Ab normal vaginal bleeding (especially bleeding after menopause). ?? Last Reviewed Date: 2025 00:00:00 ?? [id number] [employer]. All rights reserved. This information is not intended as a substitute for professional medical care. Always follow your healthcare professional's instructions. ?? Patient Care team information Care Team Personnel Name: Carmel Colon RN Position: [facility] RN Member Role: Primary Care Nurse Name: Lilliam Reardon RN Position: [facility] AMB Nurse Member Role: Primary Care Nurse Name: Jayne Galindo NP Position: Reference Physician Member Role: Primary Care Nurse Address: [address] [place] [address] - Telecom: Name: Dulce Carlos [place] Position: [facility] Office Staff Member Role: Primary Care Nurse Name: Elin Sanchez MD, Rosi Miller Position: Reference Physician Member Role: PCP Address: [address] [place] [address] - Telecom: Care Team Related Persons Name: FUNMILAYO SCHAFFER Name: DEJAH MARC Name: MEMO GLOVER Name: MEMO [place]LLINGTON Insurance Providers Guarantor name: MATHEW MARC Health Plan Information #: 1 Payer: MEDICARE B Payer Identifier: Member Number: [id number] Group Number: Subscriber Identifier: [id number] Relationship to Subscriber: self Coverage Type: NA Coverage Verification Date: Telecom: NA Address: Health Plan Information #: 2 Payer: [employer] Payer Identifier: NA Member Number: [id number] Group Number: Subscriber Identifier: [id number] Relationship to Subscriber: self Coverage Type: MEDICAID Coverage Verification Date: Telecom: Address:
--- NOTE | 2025-02-19 08:34 | MHC.OFFVIS ---
Vital Signs 02/19/25 08:45 Height 5 ft 2 in Weight 208 lb BMI 38.0 BP 116/62 Blood Pressure Location Rt brachial Position Sitting Pulse 78 Pulse Source Pulse Oximeter Pulse Oximetry (%) 96 Oxygen Delivery Method Room Air Intake Visit Reasons: Abd. pain f/u Intake Note: Patient follow up for abdominal pain. Patient cc: C.O. abd pain, hx of constipation w/ associated hemorrhoids. Pt states that she is having difficulty maintaining consistent bowel movements. Pt also had a flare up of her hemorrhoids and treated with Prep H x3 days which was effective. BRB [place]. Automotive Paint Technician Required: No Accompanied by: Self / Same As Patient Allergies Iodinated Contrast Media (Contrast Dye) Allergy (Unknown, Verified 02/19/25 08:35) Vomiting codeine Adverse Reaction (Severe, Verified 02/19/25 08:35) Nausea quan flavors Allergy (Intermediate, Uncoded 02/19/25 08:35) hives Medication List - Last Reconciled 02/19/25 by Mirna Stout CNP blood sugar diagnostic (BuyosphereTouch Ultra Test strips) As directed brexpiprazole (Rexulti) 2 mg PO DAILY duloxetine 20 mg PO BEDTIME 30 days fluocinonide 0.05% topical BID PRN linaclotide (Linzess) 290 mcg PO QAM lorazepam 1.5 mg PO DAILY PRN metformin ER 500 mg PO DAILY multivitamin 1 tab PO DAILY omeprazole 40 mg PO ONCE 30 days pregabalin 225 mg PO BID propranolol 20 mg PO BID simvastatin 10 mg PO BEDTIME sumatriptan succinate 25 mg PO DAILY PRN trazodone 50 - 100 mg PO BEDTIME PRN HPI HPI Abd. pain f/u: Details: amador is a 59-year-old female with PMH of COPD, nicotine dependence, anxiety 2, CAD and fibromyalgia Since the previous visit in October, the patient's constipation has been fairly controlled on Linzess. She suspects isloated episode of constipation and excerbation of hemorrhoids onset following consumption of popcorn. States stools have now transitioned to softer and more frequent (type 4 per [place] stool chart), attributed to initiating Metformin and dietary changes (increased fiber). The reported bleeding due to external hemorrhoids resolved with OTC Preparation H. Pelvic pain and pressures suspected from UTI led to urgent care treatment and subsequent evaluation in the ER, where imaging was normal but ? bladder prolapse reported. Patient compliance with previous recommendations (walking) is partial due to pain levels. Currently reports mild nausea after meals, which she associates with Metformin, and increased daytime bowel frequency without diarrhea. No current bleeding, nausea, vomiting, or fever. No recent hospitalizations outside of ER visit. [facility] Medical History (Updated 02/19/25 @ 10:29 by Mirna Stout CNP) Pelvic pain Diabetes Hemorrhoids COPD (chronic obstructive pulmonary disease) Smoker Arthritis Anxiety CAD (coronary artery disease) Rectocele Tubular adenoma of colon Fibromyalgia Surgical History History of esophagogastroduodenoscopy (EGD) History of surgery on lower extremity History of genitourinary surgery History of cardiac catheterization Hx of colonoscopy Hx of section Family History Father Diabetes Mother Breast cancer Rheumatoid arthritis Social History Household Members: Significant Other Alcohol intake: never Patient Tobacco Use Status: Former Tobacco user Tobacco use type: Cigarette Cigarette Packs Per Day: 1 Cigarettes Per Day: 20.0 Years Smoked: 24 Current occupational status: unemployed Review of Systems Const Reports as per HPI ENT Reports as per HPI Card Reports as per HPI Resp Reports as per HPI GI Reports as per HPI Reports as per HPI Physical Exam Vital Signs: Last Vital Signs Pulse 78 02/19/25 08:45 BP 116/62 02/19/25 08:45 Pulse Ox 96 02/19/25 08:45 Oxygen Delivery Method Room Air 02/19/25 08:45 BMI result Body Mass Index 38.0 Const General: healthy appearing, no acute distress and well developed Nutritional Appearance: average body habitus Orientation/consciousness: patient oriented x3 HEENT Head: Yes normal to inspection, Yes normocephalic and Yes atraumatic Face and sinus: Yes normal facial exam Eyes General: appearance normal, both eyes and all related structures Neck Neck: Yes normal visual inspection Resp Effort & Inspection: normal respiratory effort, able to speak in complete sentences, no tracheal deviation and symmetric chest movement Auscultation: clear to auscultation bilaterally Cardio Jugular venous distension: no JVD Rate: regular rate Rhythm: regular rhythm Heart sounds: S1 normal heart sound present, S2 normal heart sound present, no gallops and no murmurs GI Inspection: Yes normal to inspection, No distended and Yes obesity Palpation (GI): Soft to palpation, not firm, nontender and No hepatosplenomegaly present Auscultation: normal bowel sounds Rectal Exam - Female: normal sphincter tone, No External hemorrhoid(s) present, Internal hemorrhoid(s) present (questionable), No Anal fissure(s) present, No mass, No tenderness and other (mx perianal skin tags) Neuro General: patient oriented x3 Gait exam (Neuro): Normal gait present Psych Appearance: grossly normal Mental Status: mental status grossly normal Speech and movement: Normal speech and movement present Affect: normal affect Attitude: cooperative Thought process: Normal thought process present Thought content: Normal thought content present Insight: Good insight present (Psych) Judgement: Good judgement present (Psych) Results Reviewed Results Reviewed: Results Date of Service: 10/12/23 Procedure(s): CT abdomen pelvis wo IV con Accession Number(s): [id number] cc: Roland Quevedo ; Rosi Hayes MD~ EXAMINATION: CT ABDOMEN AND PELVIS WITHOUT CONTRAST CLINICAL INFORMATION: Pain COMPARISON: None available. TECHNIQUE: Multidetector volumetric imaging was performed from the superior aspect of the liver through the pubic symphysis. Sagittal and coronal reformatted images were obtained on the technologist's workstation. This CT examination was performed using dose optimization techniques as appropriate, variously including the following: *Automated exposure control *Adjustment of mA and/or kV according to patient size (this includes techniques or standardized protocols for targeted exams where dose is matched to indication/reason for exam; i.e. extremities or head) *Use of iterative reconstruction technique DLP: 830 mGy-cm FINDINGS: LUNG BASES: Emphysematous changes are present at the lung bases along with bronchial thickening. Multiple small pulmonary nodules are seen measuring 3 or 4 mm in size. The largest is in the right middle lobe subpleural (4:37). LIVER, GALLBLADDER, AND BILIARY TREE: The liver is mildly enlarged at 17.8 cm in cephalocaudad dimension. No focal hepatic lesion or biliary ductal dilatation is present. The gallbladder is unremarkable with no evidence of radiopaque gallstones, gallbladder wall thickening, or obvious pericholecystic inflammatory changes. PANCREAS: Unremarkable. SPLEEN: Unremarkable. ADRENAL GLANDS: Unremarkable. KIDNEYS AND URETERS: The kidneys are normal in size, shape, and attenuation. 2 punctate nonobstructing calculi are present in the left kidney measuring 2 to 3 mm in size. A single tiny 1 mm punctate calcification is seen in the right kidney. No hydronephrosis, hydroureter, or ureteral calculi seen. No perinephric stranding. BLADDER: Unremarkable. GASTROINTESTINAL TRACT: The small and large bowel are unremarkable. The appendix is unremarkable. ABDOMINAL WALL: No significant hernia is appreciated. LYMPH NODES: Normal. VASCULAR: Unremarkable. PELVIC VISCERA: Unremarkable. OSSEOUS STRUCTURES: Mild degenerative changes are present in the spine. CT/CT abdomen pelvis wo IV con IMPRESSION: 1. A cause for the patient's abdominal pain has not been found. 2. Incidental note made of mild hepatomegaly, nonobstructing renal calculi and degenerative changes in the spine. 3. Incidental note made of emphysema and bronchial thickening with multiple small pulmonary nodules. According to the UPDATED 2017 Fleischner Society recommendations, the advised follow-up imaging for solid nodules <6 mm in the middle/lower lobes is no routine follow up. Assessment & Plan Assessment & Plan (1) Chronic constipation: Code(s): K59.09 - Other constipation Category: Medical Plan: Stools within normal range (type 4) but patient reports varying bowel frequency (1?2/day). Stable on Linzess; adjust only if constipation resumes with Metformin role diminishing over time. Additional Testing: None planned for this diagnosis until post-colonoscopy. Medications: Continue Linzess at current dose. Lifestyle Recommendations: Gradual fiber increase to prevent motility overload; hydration (continue water and Pedialyte, minimize soda intake). Referrals: Grain Oilseed Or Pasture Farm Worker suggested during upcoming visit with PCP. Follow-Up Plan: Review post-colonoscopy (March 10) or sooner for unresolved bowel irregularities. (2) Hemorrhoids: Code(s): K64.9 - Unspecified hemorrhoids Category: Medical Qualifiers: Hemorrhoid type: unspecified Qualified Code(s): K64.9 - Unspecified hemorrhoids Plan: Improved after OTC Preparation H, non-bleeding external hemorrhoids. Rectal exam today with good tone and mx skin tags, otherwise unremarkable. Additional Testing: Rectal evaluation during colonoscopy. Medications: Continue current topical Preparation H ( maximum strength) Lifestyle Recommendations: Avoid known dietary irritants (e.g., popcorn); discuss long-term hemorrhoid options during follow-up. Referrals: To be decided post-colonoscopy; possible referral for advanced hemorrhoid management. Follow-Up Plan: Post-colonoscopy reassessment or sooner for acute hemorrhoidal changes. (3) Diabetes: Code(s): E11.9 - Type 2 diabetes mellitus without complications Category: Medical Qualifiers: Diabetes mellitus type: type 2 Diabetes mellitus long term care pharmacist insulin use: without long term care pharmacist use Diabetes mellitus complication status: without complication Qualified Code(s): E11.9 - Type 2 diabetes mellitus without complications Plan: new diagnosis, verbal reports of A1c of 6.9. Now prescribed metformin ER. Transient mild nausea post-meal and increased bowel activity within tolerable limits. Educated patient on gradual Metformin adjustment phase (2-3 weeks typical); monitor for severe GI effects. Additional Testing: None planned; address symptom progression directly. Medications: Continue Metformin 500mg ER oral daily with meals (flagged for nausea evaluation). Lifestyle Recommendations: -Monitor dietary adaptation to Metformin (gradual fiber addition; avoid large-fiber intake to mitigate soft/watery stool episodes). -Increase hydration efforts with balanced electrolytes (continue Pedialyte and water regimen). Referrals: Consider manager sales and marketing for diabetes-friendly meal plans. Follow-Up Plan: Notify clinic if nausea persists post-Keflex course or bowel frequency further accelerates (>3/day). (4) UTI (urinary tract infection): Code(s): N39.0 - Urinary tract infection, site not specified Category: Medical Qualifiers: Urinary tract infection type: site unspecified Hematuria presence: without hematuria Qualified Code(s): N39.0 - Urinary tract infection, site not specified Plan: Appears resolving; notes improved frequency with some residual pelvic pressure. Continue current UTI treatment per ER recommendations. Medications: Keflex 500mg oral QID (flagged for potential nausea); two doses remaining. Lifestyle Recommendations: Improve post-antibiotic dietary intake to minimize nausea (low-fat, low-sugar options suggested). Referrals: consider urogynecology referral for bladder prolapse ( subjective) discussion. Follow-Up Plan: with PCP as planned (5) Pelvic pain: Code(s): R10.2 - Pelvic and perineal pain Category: Medical Plan: Reviewed ER and CT reports from 02/17/25 (see scanned documents). No evidence of obstruction or hepatopancreatobiliary findings. Bladder noted as under distended. Plan as above and advised continued follow up with PCP. Plan Follow-up after endoscopy or sooner as needed Time: I spent a total of 40 minutes on the date of encounter which includes: Preparing to see the patient (reviewed previous documentation, test results and medical history) Performing a medically appropriate exam and/or evaluation Ordering medications, tests, and procedures Documenting clinical information in the health record Coding Level of Care Code Established Pt Est Pt Level 5 (14962) Patient Type Established Diagnoses Chronic constipation K59.09 Hemorrhoids, unspecified hemorrhoid type K64.9 Hemorrhoid type: unspecified Type 2 diabetes mellitus without complication, without long-term current use of insulin E11.9 Diabetes mellitus type: type 2 Diabetes mellitus care home insulin use: without care home use Diabetes mellitus complication status: without complication Urinary tract infection without hematuria, site unspecified N39.0 Urinary tract infection type: site unspecified Hematuria presence: without hematuria Pelvic pain R10.2
[2025-02-19 08:45] VITALS: BP 116/62; PULSE 78; O2SAT 96; BMI 38.0
== END 2025-02-19 09:14 | disposition home or self-care (01) ==
LOC: HO.HGI 08:33
PROVIDERS: PCP Internal Medicine; Visit Provider Nurse Practitioner Family
DX: K59.09 Other constipation (principal); K64.9 Unspecified hemorrhoids; E11.9 Type 2 diabetes mellitus without complications; N39.0 Urinary tract infection, site not specified; R10.2 Pelvic and perineal pain
CPT/HCPCS: 99215

== ENCOUNTER → 2025-02-19 08:32 | Outpatient (BNVA) | payer MEDICARE, MEDICAID, SELFPAY | PROVIDERS: PCP Internal Medicine; Visit Provider Nurse Practitioner Family | DX: K59.09 Other constipation (principal); K64.4 Residual hemorrhoidal skin tags; E11.9 Type 2 diabetes mellitus without complications; N39.0 Urinary tract infection, site not specified; R10.2 Pelvic and perineal pain; Z79.2 Long term (current) use of antibiotics; Z79.84 Long term (current) use of oral hypoglycemic drugs | CPT/HCPCS: 99212 ==

== ENCOUNTER 2025-02-25 09:25 | Outpatient (REF) | payer MEDICARE, MEDICAID, SELFPAY ==
--- NOTE | ~2025-02-25 | MR_ITS ---
EXAMINATION: MR LUMBAR SPINE WITHOUT CONTRAST CLINICAL INFORMATION: Radiculopathy, lumbar region. COMPARISON: None available. TECHNIQUE: MRI of the lumbar spine was obtained using routine sequences without contrast. FINDINGS: Last rib-bearing vertebra labeled T12. Mild bone marrow STIR signal in the inferior endplate of L1. Marginal osteophyte formation, endplate irregularity, Schmorl node at L1. Disc desiccation at L1 to and L4-5 and to a lesser extent T12-L1 level. Multilevel Schmorl nodes in the inferior endplate of the lower thoracic spine and L1 vertebra. Grade 1 retrolisthesis L1-2. Conus medullaris ends at pedicle of L1 with normal signal. T12-L1: No disc herniation. No neuroforamina stenosis. L1-2: Broad-based disc bulging. Facet joint hypertrophy. Reduced AP diameter of the thecal sac and bilateral neuroforamina narrowing likely encroaching the exiting nerve roots. L2-3: Broad-based disc bulging. Facet joint and ligamentum flavum hypertrophy. Reduced AP diameter thecal sac and neuroforamina likely encroaching the neural elements. L3-4: Broad-based disc bulging. Facet joint and ligamentum flavum hypertrophy. Reduced AP diameter of the thecal sac and neuroforamina likely encroaching the neural elements. L4-5: Broad-based disc bulging. Facet joint hypertrophy. Reduced AP diameter of the thecal sac and neuroforamina likely encroaching the neural elements. L5-S1: Broad-based disc bulging. Facet joint hypertrophy. No central spinal canal stenosis. No gross neuroforamina stenosis. No prevertebral compartment hematoma, mass or fluid collection. Mild fatty atrophy of the lower lumbar muscles at L5-S1. MR/MR lumbar spine wo con IMPRESSION: Multilevel thoracolumbar spondylosis pronounced at L1 to resulting in grade 1 retrolisthesis and likely encroaching the neural elements. Multilevel lumbar spondylosis from L2-3 to L4-5 encroaching the exiting nerve roots. Electronically signed by: Víctor Key MD 02/25/2025 10:18 AM EDT
--- OUTSIDE RECORDS SUMMARY | 2025-02-25 09:52 | XMS_ITS | Clinical Summary ---
Author Organization [facility] [address] [place] [address] [place] [phone] Phone Care Team Providers Care Dog Breeder Name Role Phone Rosi Mena MD Primary Care Prov ider Allergies Active Allergy Reactions Criticality Noted Date Comments [place] Hives 07/24/2022 Codeine Hives,Nausea And Vomiting 10/23/2012 Iodinated Contrast Media Hives High 01/13/2016 Pt stated that back in 1992 she broke out in hives after iv contrast inj. No sob. Lmzsjxd-Ydz-Nbi Reductase Inhibitors Pain Low 02/20/2024 Myalgia and joint pain [place] Hives High 07/24/2022 Medications brexpiprazole (Rexulti) 2 [...] 2 doses in 24 hours 3 Active FreeStyle Lite Meter monitoring kit USE TO CHECK BLOOD SUGAR EACH DAILY FASTING 1 each 4 Active simvastatin (ZOCOR) 10 mg tablet Take 1 tablet (10 mg total) by mouth at bedtime. 90 each 1 5 03/25/20 25 Active traZODone (DESYREL) 100 mg tablet Take 1 tablet (100 mg total) by mouth at bedtime. Active LORazepam (ATIVAN) 1 mg tablet Take 1 tablet (1 mg total) by mouth every 6 (six) hours if needed for anxiety. Max Daily Amount: 4 mg Active metFORMIN XR (GLUCOPHAGE-XR) 500 mg 24 hr tablet Take 1 tablet (500 mg total) by mouth 1 (one) time each day with breakfast. Do not crush, chew, or split. 90 tablet 5 Active mirtazapine (REMERON) 30 mg tablet Take 1 tablet (30 mg total) by mouth. at bedtime 4 02/11/20 25 Discontinu ed(Non-com pliance) Active Problems Problem Noted Date Diagnosed Date Type 2 diabetes mellitus ([facility] V24, [facility] V 28) 04/21/2024 Assessment & Plan (09/26/2024 [...] Severe obesity (BMI 35.0-39. 9) with comorbidity ([facility]/HCC V24, CMS/HCC V28) 04/01/2021 Assessment & Plan (09/26/2024 10:08 AM EDT): Assessment & Plan (05/30/2024 9:42 AM EST): BMI 37.3. Weight loss strategies were discussed with the patient today. Already evaluated by weight management. Pending to start Mounjaro. Chronic constipation 03/21/2021 Overview (04/21/2024): [facility] gastroenterology Abnormal stress test 08/06/2019 Overview [...] Surgical repair with Dr. Engle at [facility] Chronic low back pain 06/06/2017 Overview (04/21/2024): Follows with rheumatology at [facility], Dr. Bam Mon; [facility] pain management Assessment & Plan (05/30/2024 [...] cervix uteri 10/02/2013 Fibromyalgia 07/23/2013 Overview (04/21/2024): [facility] rheumatology, on Lyrica; failed trials of gabapentin, duloxetine, amitriptyline, Savella, cyclobenzaprine Smoking 01/20/2013 Anxiety 10/23/2012 Encounters Date Type Department Care Team Description 02/10/2025 1:15 PM EDT Office Visit Adult Medicine [address] [phone] Ekaterina Casas PA Type 2 diabetes mellitus without complication, without long-term current use of insulin (CMS/HCC V24, CMS/HCC V28) (Primary Dx); Mixed hyperlipidemia; Severe obesity (BMI 35.0-39.9) with comorbidity (CMS/HCC V24, CMS/HCC V28); Chronic constipation 12/17/2024 10:36 AM EDT - 12/17/2024 11:59 PM EDT Hospital Encounter Radiology Department - [address] [phone] Abnormal mammogram Discharge Disposition: Home or Self Care 12/17/2024 10:36 AM EDT - 12/17/2024 11:59 PM EDT Hospital Encounter Radiology Department - [address] [phone] Abnormal mammogram Discharge Disposition: Home or Self Care 12/12/2024 8:23 AM EDT - 12/12/2024 11:59 PM EDT Hospital Encounter Radiology Department - [address] [phone] Screening mammogram for breast cancer Discharge Disposition: [...] 2 polyps OTHER SURGICAL HISTORY 03/26/2019 PROCEDURE: CT REPAIR RECTOCELE SEPARATE PROCEDURE; COMMENT: and urethral sling; Dr. Cobos Medical History Medical History Date Comments Anxiety DX:Anxiety Constipation DX:Constipation Type 2 diabetes mellitus ([facility]/HCC V24, [facility] V28) 02/25/2024 DX:Type 2 diabetes mellitus (HCC) [...] care for your loved ones. For example, early childhood education coordinator or elderly care for an older adult? [...] Sign Reading Time Taken Comments Blood Pressure 119/70 02/10/2025 1:20 PM EDT Pulse 80 02/10/2025 1:20 PM EDT Temperature 35.9 C (96.6 F) 02/10/2025 1:20 PM EDT Respiratory Rate 14 02/10/2025 1:20 PM EDT Oxygen Saturation 96% 02/10/2025 1:20 PM EDT Inhaled Oxygen Concentration - - Weight 94.3 kg (208 lb) 02/10/2025 1:20 PM EDT Height 158.8 cm (5' 2.5 ) 02/10/2025 1:20 PM EDT Body Mass Index 37.44 02/10/2025 1:20 PM EDT Plan of Treatment Upcoming Encounters Date Type Department Care Team (Late st Contact Info) Description 06/18/2025 8:30 AM EST Appointment Radiology Department - [address] [phone] 06/18/2025 9:30 AM EST Office Visit Adult Medicine [facility] [address] [phone] Ekaterina Casas PA [address] [place] [phone] Health Maintenance Due Date Last Done Comments Diabetes: Annual Foot Exam 1976 Diabetes: Annual Retina Eye Exam 1976 Hepatitis B Vaccines (1 of 3 - 19+ 3-dose series) 1985 Pneumococcal Vaccine: 50+ Years (1 of 2 - PCV) 1985 Zoster Vaccines (2 of 2) 01/05/2021 11/10/2020, 04/11/2020 HIV Screening 06/24/2022 Medicare Annual Wellness Visit [...] 06/21/2026 06/21/2016, 01/20/2013 Breast Cancer Screening 12/17/2026 12/18/19 25, 12/12/2024, 12/06/2023, Additional history exists Colorectal Cancer [...] complication, without long-term current use of insulin ([facility] V24, [facility] V28) US BREAST LIMITED RIGHT Routine 12/17/2024 [...] long-term current use of insulin (CMS/HCC V24, [facility] V28) Mixed hyperlipidemia LIPID PANEL WITH REFLEX [...] LAB CHEMISTRY METHOD 01/23/2025 9:29 PM EDT [facility] Mean Bld Glu Estim. 151 mg/dL LAB CHEMISTRY METHOD 01/23/2025 9:29 PM EDT [facility] Blood Venous blood specimen / Unknown Venipuncture / Unknown 01/23/2025 3:40 PM EDT 01/23/2025 3:40 PM EDT us Rosi Mena MD LAB BLOOD ORDERABL ES Final Result [facility] [address] [place] [address], * US Breast Limited Right (12/17/2024 11:15 [...] right breast in 6 months. MAMMO LOCATION: [facility], [address] [place] [address], [phone], . -------- FINAL REPORT -------- Dictated By: Adrianna Fuentes Dictated Date: 12/17/2024 12:03 ET Assigned Physician: Adrianna Fuentes Reviewed and Electronically Signed By: Adrianna Fuentes Signed Date: 12/17/2024 12:13 ET Workstation ID: [id number] Transcribed By: Self Edit Transcribed Date: 12/17/2024 [...] the rightbreast in 6 months. MAMMO LOCATION: [facility], [address] [place] [address], [phone], . -------- FINAL REPORT -------- Dictated By: Adrianna Fuentes Dictated Date: 12/17/2024 12:03 ET Assigned Physician: Adrianna Fuentes Reviewed and Electronically Signed By: Adrianna Fuentes Signed Date: 12/17/2024 12:13 ET Workstation ID: [id number] Transcribed By: Self Edit Transcribed Date: 12/17/2024 [...] right breast in 6 months. MAMMO LOCATION: [facility], [address] [place] [address], [phone], . -------- FINAL REPORT -------- Dictated By: Adrianna Fuentes Dictated Date: 12/17/2024 12:03 ET Assigned Physician: Adrianna Fuentes Reviewed and Electronically Signed By: Adrianna Fuentes Signed Date: 12/17/2024 12:13 ET Workstation ID: [id number] Transcribed By: Self Edit Transcribed Date: 12/17/2024 [...] the rightbreast in 6 months. MAMMO LOCATION: [facility], [address] [place] [address], [phone], . -------- FINAL REPORT -------- Dictated By: Adrianna Fuentes Dictated Date: 12/17/2024 12:03 ET Assigned Physician: Adrianna Fuentes Reviewed and Electronically Signed By: Adrianna Fuentes Signed Date: 12/17/2024 12:13 ET Workstation ID: [id number] Transcribed By: Self Edit Transcribed Date: 12/17/2024 [...] Additional right breast imaging recommended. Mammo Location: [facility], [address] [place] [address], [phone], . -------- FINAL REPORT -------- Dictated By: Nataly Malik Dictated Date: 12/12/2024 17:55 ET Assigned Physician: Nataly Malik Reviewed and Electronically Signed By: Nataly Malik Signed Date: 12/12/2024 18:24 ET Workstation ID: [id number] Transcribed By: Self Edit Transcribed Date: 12/12/2024 [...] Additional right breast imaging recommended. Mammo Location: [facility], [address] [place] [address], [phone], . -------- FINAL REPORT -------- Dictated By: Nataly Malik Dictated Date: 12/12/2024 17:55 ET Assigned Physician: Nataly Malik Reviewed and Electronically Signed By: Nataly Malik Signed Date: 12/12/2024 18:24 ET Workstation ID: [id number] Transcribed By: Self Edit Transcribed Date: 12/12/2024 17:55 ET Rosi Mena MD IM BI PROCEDURES Final Result * (ABNORMAL) Lipid panel with reflex to direct LDL (09/02/2024 8:38 AM EST) Cholesterol 183 0 - 200 mg/dL LAB CHEMISTRY METHOD 09/02/2024 11:02 AM [facility] Triglycerides 79 0 - 150 mg/dL LAB CHEMISTRY METHOD 09/02/2024 11:02 AM [facility] HDL 52 >=40 mg/dL LAB CHEMISTRY METHOD 09/02/2024 11:02 AM [facility] LDL Calculated 115(H) 0 - 100 mg/dL LAB CHEMISTRY METHOD 09/02/2024 11:02 AM [facility] VLDL Cholesterol Rodger 15.8 mg/dL LAB CHEMISTRY METHOD 09/02/2024 11:02 AM [facility] Non HDL Chol. (LDL+VLDL) 131 <145 mg/dL LAB CHEMISTRY METHOD 09/02/2024 11:02 AM [facility] Chol/HDL Ratio 3.5 0.0 - 4.4 LAB CHEMISTRY METHOD 09/02/2024 11:02 AM [facility] Blood Venous blood specimen / Unknown Venipuncture / Unknown 09/02/2024 8:38 AM EST 09/02/2024 8:38 AM EST us Rosi Mena MD LAB BLOOD ORDERABL ES Final Result [facility] [address] [place] [address], [place] [phone] * (ABNORMAL) Comprehensive metabolic panel (09/02/2024 8:38 AM EST) Sodium 139 133 - 145 mmol/L LAB CHEMISTRY METHOD 09/02/2024 11:02 AM [facility] Potassium 4.7 3.5 - 5.5 mmol/L LAB CHEMISTRY METHOD 09/02/2024 11:02 AM [facility] Chloride 107 96 - 110 mmol/L LAB CHEMISTRY METHOD 09/02/2024 11:02 AM [facility] CO2 28 21 - 32 mmol/L LAB CHEMISTRY METHOD 09/02/2024 11:02 AM [facility] Anion Gap 4 3 - 11 LAB CHEMISTRY METHOD 09/02/2024 11:02 AM [facility] Glucose 131(H) 70 - 100 mg/dL LAB CHEMISTRY METHOD 09/02/2024 11:02 AM [facility] BUN 14 5 - 25 mg/dL LAB CHEMISTRY METHOD 09/02/2024 11:02 AM [facility] Creatinine 0.79 0.50 - 1.10 mg/dL LAB CHEMISTRY METHOD 09/02/2024 11:02 AM [facility] eGFR 87 >=60 mL/min/1. 73m2 LAB CHEMISTRY METHOD 09/02/2024 11:02 AM [facility] Comment:Calculation based on the Chronic Kidney Disease Epidemiology Collaboration (CKD-EPI) equation refit without adjustment for race. BUN/Creatinine Ratio 17.7 LAB CHEMISTRY METHOD 09/02/2024 11:02 AM [facility] Calcium 9.8 8.5 - 10.5 mg/dL LAB CHEMISTRY METHOD 09/02/2024 11:02 AM [facility] AST (SGOT) 8(L) 10 - 42 unit/L LAB CHEMISTRY METHOD 09/02/2024 11:02 AM [facility] ALT (SGPT) 23 10 - 60 unit/L LAB CHEMISTRY METHOD 09/02/2024 11:02 AM [facility] Alkaline Phosphatase 88 42 - 121 unit/L LAB CHEMISTRY METHOD 09/02/2024 11:02 AM [facility] Total Protein 8.1(H) 6.0 - 8.0 g/dL LAB CHEMISTRY METHOD 09/02/2024 11:02 AM [facility] Albumin 4.1 3.2 - 5.0 g/dL LAB CHEMISTRY METHOD 09/02/2024 11:02 AM [facility] Total Bilirubin 0.6 0.0 - 1.4 mg/dL LAB CHEMISTRY METHOD 09/02/2024 11:02 AM [facility] Blood Venous blood specimen / Unknown Venipuncture / Unknown 09/02/2024 8:38 AM EST 09/02/2024 8:38 AM EST us Rosi Mena MD LAB BLOOD ORDERABL ES Final Result [facility] [address] [place] [address], * HM Urine Albumin Creatinine Ratio (02/20/2024) Pathologist [facility] Urine Albumin Creatinine Ratio abstracted [facility] Provider HEALTH MAINTENANCE Final Result * Depression Screening (11/28/2023) Pathologist [facility] Depression Screening abstracted [facility] Provider HEALTH MAINTENANCE Final Result * Hepatitis C Screening (06/16/2020) [facility] Hepatitis C Screening abstracted [facility] Provider HEALTH MAINTENANCE Final Result * Cervical Cancer Screening: HPV (08/15/2019) [facility] Cervical Cancer Screening: HPV abstracted, negative Result [facility] Provider HEALTH MAINTENANCE Final Result * Colonoscopy (10/18/2018) [facility] Colonoscopy abstracted, no interpretation Anatomical Region Laterality Modality Other Result [facility] Provider HEALTH MAINTENANCE Final Result from Last 3 Months or Most Recently Relevant to Health Maintenance Insurance MEDICARE [place]ICAID [place] Care Teams Dog Breeder Relationship Specialty Start Date End Date Rosi Mena MD [address] [place] [phone] PCP - General Internal Medicine 05/30/24
== END 2025-02-25 09:26 | disposition home or self-care (01) ==
LOC: HO.MRI 09:25
PROVIDERS: PCP Internal Medicine; Visit Provider Nurse Practitioner Family
DX: M54.16 Radiculopathy, lumbar region (principal); M51.369 Other intervertebral disc degeneration, lumbar region without mention of lumbar back pain or lower extremity pain; M54.51 Vertebrogenic low back pain
CPT/HCPCS: 72148

== ENCOUNTER → 2025-02-25 09:36 | Outpatient (BNV) | payer MEDICARE, MEDICAID, SELFPAY | PROVIDERS: PCP Internal Medicine; Visit Provider Radiology Diagnostic Radiology | DX: M54.16 Radiculopathy, lumbar region (principal) | CPT/HCPCS: 72148 ==